=== PATIENT | male | born 1960 | race Hispanic/Latino ===

== ENCOUNTER 2018-01-25 17:30 | Emergency (ER) | payer OTHER, SELFPAY ==
[2018-01-25] MEDS ORDERED: MORPHINE 4 MG/ML SYR ONE (18:01)
[2018-01-25] MEDS ORDERED: ONDANSETRON 4 MG/2 ML VIAL ONE (18:02)
[2018-01-25] MEDS ORDERED: CEFAZOLIN/SWI 1gm 2 GM/20 ML SYR ONE (18:02)
[2018-01-25] MEDS ORDERED: NA CHLORIDE 0.9% 100 ML IV ONE (18:02)
[2018-01-25] MEDS ORDERED: TETANUS & DIPHTHERIA TOX,ADULT 0.5 ML VIAL ONE (18:02)
[2018-01-25 18:21] LABS: Absolute Lymphocytes (CBC) 2.7 K/uL (0.7-4.9); Absolute Monocytes 0.8 K/uL (0.1-1.3); Absolute Neutrophil 6.7 K/uL (1.8-8.0); Eosinophils % 2.6 % (0-4.4); Lymphocytes % 25.4 % (15.3-44.8); MCH 31.5 pg (27.0-35.0); MCV 93.9 fL (80-100); MPV 12.2 fL (7.6-11.3); Monocytes % 7.7 % (3.3-12.3); RBC Red Blood Cell Count 4.37 M/uL (4.33-5.43)
[2018-01-25 18:24] LABS: Protime INR 1.13
[2018-01-25 18:49] LABS: Potassium 4.1 mmol/L (3.5-5.1)
--- NOTE | 2018-01-25 18:52 | EDPHYS ---
Physician Documentation [facility] Name: Eric Nash Age: 57 yrs Sex: Male : 1960 Arrival Date: 01/25/2018 Time: 17:35 Bed 3 Private MD: ED Physician Sloo Garcia HPI: 01/25 17:57 This 57 yrs old Male presents to ER via EMS with complaints of Laceration To cp Arm. 17:57 The patient has a laceration occurred outdoors, and use of chainsaw. The laceration(s) cp is(are) located on the left forearm. Onset: The symptoms/episode began/occurred just prior to arrival. Associated signs and symptoms: Pertinent positives: heavy bleeding, Pertinent negatives: numbness distal to injury. Historical: - Allergies: 17:46 NKA; iw - PMHx: 17:46 Hypertension; iw - Immunization history:: Adult Immunizations unknown. - Immunization history: Last tetanus immunization: unknown. - Ebola Screening: : Patient negative for fever greater than or equal to 101.5 degrees Fahrenheit, and additional compatible Ebola Virus Disease symptoms Patient denies exposure to infectious person Patient denies travel to an Ebola-affected area in the 21 days before illness onset No symptoms or risks identified at this time. - Social history:: Smoking status: Patient/guardian denies using tobacco. ROS: 18:00 Constitutional: Negative for body aches, chills, fever, poor PO intake. cp 18:00 Eyes: Negative for injury, pain, redness, and discharge. cp 18:00 Cardiovascular: Negative for chest pain. 18:00 Respiratory: Negative for cough, shortness of breath, wheezing. 18:00 Abdomen/GI: Negative for abdominal pain, nausea, vomiting, and diarrhea. 18:00 Skin: Positive for laceration(s), of the laceration left forearm. 18:00 Neuro: Negative for dizziness. 18:00 All other systems are negative. Exam: 17:56 ECG was reviewed by the Attending Physician. cp 18:10 Constitutional: The patient appears in no acute distress, alert, awake, cp non-diaphoretic, non-toxic, well developed, well nourished. 18:10 Head/Face: Normocephalic, atraumatic. cp 18:10 Eyes: Pupils equal round and reactive to light, extra-ocular motions intact. Lids and lashes normal. Conjunctiva and sclera are non-icteric and not injected. Cornea within normal limits. Periorbital areas with no swelling, redness, or edema. 18:10 ENT: External ear(s): are unremarkable, Nose: is normal, Mouth: is normal, Posterior pharynx: is normal, airway is patent, no erythema, no exudate. 18:10 Chest/axilla: Inspection: normal, Palpation: is normal, no crepitus, no tenderness. 18:10 Cardiovascular: Rate: normal, Rhythm: regular, Pulses: Pulses are 2+ in right radial artery and left radial artery. 18:10 Respiratory: the patient does not display signs of respiratory distress, Respirations: normal, no use of accessory muscles, no retractions, no splinting, no tachypnea, Breath sounds: are clear throughout, no decreased breath sounds, no stridor, no wheezing. 18:10 Abdomen/GI: Inspection: abdomen appears normal, Palpation: abdomen is soft and non-tender, in all quadrants. 18:10 Musculoskeletal/extremity: Tendon exam: postive for patient unable to fully extend left third, fourth and fifth digits. 18:10 Musculoskeletal/extremity: Sensation intact. 18:10 Skin: injury, laceration(s), the wound is approximately 12 cm(s), of the proximal lateral left forearm, that can be described as no foreign body, irregular, with moderate bleeding. Vital Signs: 17:37 BP 168 / 87; Pulse 67; Resp 16; Temp 98.2; Pulse Ox 97% on R/A; Weight 65.77 kg; Height iw 5 ft. 5 in. (165.10 cm); Pain 8/10; 17:46 BP 179 / 91; Pulse 69; Resp 16; Temp 98.2; Pulse Ox 98% on R/A; Pain 8/10; iw 18:28 BP 165 / 95; Pulse 76; Resp 16; Pulse Ox 100% on R/A; Pain 7/10; iw 19:10 BP 164 / 79; Pulse 62; Resp 18; Temp 98; Pulse Ox 99% ; Pain 7/10; ea 20:45 BP 150 / 90; Pulse 66; Resp 18; Temp 98.2; Pulse Ox 98% on R/A; Pain 5/10; ea 17:37 Body Mass Index 24.13 (65.77 kg, 165.10 cm) Aureliano Coma Score: 17:37 Eye Response: spontaneous(4). Verbal Response: oriented(5). Motor Response: obeys iw commands(6). Total: 15. 19:10 Eye Response: spontaneous(4). Verbal Response: oriented(5). Motor Response: obeys ea commands(6). Total: 15. 20:40 Eye Response: spontaneous(4). Verbal Response: oriented(5). Motor Response: obeys ea commands(6). Total: 15. Trauma Score (Adult): 17:46 Eye Response: spontaneous(1); Verbal Response: oriented(1); Motor Response: obeys iw commands(2); Systolic BP: > 89 mm Hg(4); Respiratory Rate: 10 to 29 per min(4); [place] Score: 15; Trauma Score: 12 18:28 Eye Response: spontaneous(1); Verbal Response: oriented(1); Motor Response: obeys iw commands(2); Systolic BP: > 89 mm Hg(4); Respiratory Rate: 10 to 29 per min(4); [place] Score: 15; Trauma Score: 12 MDM: 17:38 Patient medically screened. [facility] 18:39 Data reviewed: vital signs, nurses notes, lab test result(s), EKG, radiologic studies. 01/25 17:39 Order name: Basic Metabolic Panel; Complete Time: 19:25 01/25 19:25 Interpretation: Normal except: CL 116; GLUC 156; GFR 86. 01/25 17:39 Order name: CBC with Diff; Complete Time: 18:36 01/25 17:37 Order name: XRAY Forearm LEFT; Complete Time: 19:25 01/25 19:25 Interpretation: Report reviewed. 01/25 17:39 Order name: Creatinine for Radiology; Complete Time: 19:25 01/25 17:39 Order name: PT-INR; Complete Time: 18:36 01/25 17:39 Order name: Ptt, Activated; Complete Time: 18:36 01/25 17:41 Order name: EKG; Complete Time: 17:41 01/25 17:39 Order name: Labs collected and sent; Complete Time: 17:40 01/25 18:39 Order name: NPO; Complete Time: 18:59 [facility] EC:56 Rate is 65 beats/min. Rhythm is regular. [place] interval is normal. QRS interval is normal. cp QT interval is prolonged at 450 msec. Interpreted by me. Reviewed by me. Administered Medications: 17:47 Drug: NS 0.9% 1000 ml Route: IV; Rate: 1 bolus; Site: right antecubital; iw 19:00 Follow up: Response: No adverse reaction; IV Status: Completed infusion ea 18:12 Drug: morphine 4 mg Route: IVP; Site: right antecubital; iw 19:00 Follow up: Response: No adverse reaction; Pain is decreased ea 18:12 Drug: Zofran 4 mg Route: IVP; Site: right antecubital; iw 19:32 Follow up: Response: No adverse reaction; Marked relief of symptoms ea 18:13 Drug: Tetanus-Diphtheria Toxoid Ped 0.5 ml {Rn Recruitment: [employer]. Exp: iw 02/03/2020. Lot #: [id number]. } Route: IM; Site: right deltoid; 19:11 Follow up: Response: No adverse reaction ea 18:13 Drug: Ancef 2 grams Route: IVPB; Infused Over: 30 mins; Site: right antecubital; iw 19:31 Follow up: Response: No adverse reaction; IV Status: Completed infusion ea 19:39 Drug: fentaNYL (PF) 25 mcg Route: IVP; Site: right antecubital; ea 20:00 Follow up: Response: No adverse reaction; Pain is decreased ea 20:47 Drug: fentaNYL (PF) 50 mcg Route: IVP; Site: right antecubital; ea 20:49 Follow up: Response: Other; medication administered before transfer. ea Disposition: 18:43 Co-signature as Attending Physician, Solo Garcia MD. [facility] Disposition: 01/25/18 18:52 Transfer ordered to [facility]. Diagnosis is Laceration without foreign body of left forearm - with damage to muscle, tendon and fascia. - Reason for transfer: Higher level of care. - Accepting physician is Channing Alvarenga. - Condition is Stable. - Problem is new. - Symptoms have improved. Signatures: Dispatcher [employer] Solo Ashby MD MD cha Williams, Irene, RN RN iw Page, Corey, PA PA cp Antunez, Elena, RN RN ea Corrections: (The following items were deleted from the chart) 21:04 18:52 01/25/2018 18:52 Transfer ordered to [facility]. ea Diagnosis is Laceration without foreign body of left forearm - with damage to muscle, tendon and fascia. Reason for transfer: Higher level of care. Accepting physician is Channing Alvarenga. Condition is Stable. Problem is new. Symptoms have improved. cp
--- NOTE | 2018-01-25 18:52 | ER ---
Nurse's Notes [facility] Name: Eric Nash Age: 57 yrs Sex: Male : 1960 Arrival Date: 01/25/2018 Time: 17:35 Bed 3 Private MD: Diagnosis: Laceration without foreign body of left forearm-with damage to muscle, tendon and fascia Presentation: 01/25 17:37 Presenting complaint: EMS states: pt was using a chainsaw when the sleeve of his shirt iw got caught in the saw, causing the saw to cut his left forearm. Transition of care: patient was not received from another setting of care. Onset of symptoms was January 25, 2018. Risk Assessment: Do you want to hurt yourself or someone else? Patient reports no desire to harm self or others. Initial Sepsis Screen: Does the patient meet any 2 criteria? No. Patient's initial sepsis screen is negative. Does the patient have a suspected source of infection? No. Patient's initial sepsis screen is negative. Care prior to arrival: None. 17:37 Method Of Arrival: EMS: [facility] iw 17:37 Acuity: ALANA 2 iw Historical: - Allergies: 17:46 NKA; iw - PMHx: 17:46 Hypertension; iw - Immunization history:: Adult Immunizations unknown. - Immunization history: Last tetanus immunization: unknown. - Ebola Screening: : Patient negative for fever greater than or equal to 101.5 degrees Fahrenheit, and additional compatible Ebola Virus Disease symptoms Patient denies exposure to infectious person Patient denies travel to an Ebola-affected area in the 21 days before illness onset No symptoms or risks identified at this time. - Social history:: Smoking status: Patient/guardian denies using tobacco. Screenin:46 Abuse screen: Denies threats or abuse. Denies injuries from another. Tuberculosis iw screening: No symptoms or risk factors identified. 19:11 Nutritional screening: No deficits noted. Fall Risk IV access (20 points). ea Primary Survey: 17:40 A: Airway: patent. iw 17:40 Breathing/Chest: Respiratory pattern: regular, Respiratory effort: spontaneous, iw unlabored, Breath sounds: clear, bilaterally. Chest inspection: symmetrical rise and fall of the chest. Circulation: Cardiac rhythm: sinus rhythm Heart tones present. Pulses: palpable right radial artery and left radial artery. Skin color: pink, Skin temperature: warm, dry. Disability Alert. 19:11 Reassessment Airway Airway Patent Breathing/Chest Respiratory pattern Regular ea Respiratory effort Spontaneous Unlabored Breath sounds Clear Circulation Pulses Palpable Disability Alert. Secondary Survey: 17:45 HEENT: No deficits noted. Head No injury/deformity Face No injury/deformity Eyes: No iw injury or deformity noted. to bilateral eyes. Musculoskeletal: Capillary refill < 3 seconds, in bilateral fingers. Range of motion: limited in left wrist, DIP of left ring finger, PIP of left ring finger and MCP of left ring finger. Musculoskeletal: Range of motion: limited in DIP of left middle finger, PIP of left middle finger and MCP of left middle finger. Injury Description: Laceration sustained to dorsal aspect of left forearm is full thickness, jagged, 7.6 to 20 cm long. Assessment: 17:43 General: Appears in no apparent distress. Behavior is calm, cooperative. Pain: iw Complains of pain in dorsal aspect of left forearm Pain currently is 8 out of 10 on a pain scale. Neuro: Level of Consciousness is awake, alert, obeys commands, Oriented to person, place, time, situation, Moves all extremities. Cardiovascular: Pulses are palpable in right radial artery and left radial artery. Respiratory: Respiratory effort is even, unlabored, Respiratory pattern is regular, symmetrical. Musculoskeletal: Range of motion: intact in all extremities. Injury Description: Laceration sustained to dorsal aspect of left forearm is full thickness, jagged, 7.6 to 20 cm long, bleeding moderately, was sustained 1-2 hours ago. moderate bleeding noted at this time. 18:22 Reassessment: Patient appears in no apparent distress at this time. Patient and/or iw family updated on plan of care and expected duration. Pain level reassessed. Patient is alert, oriented x 3, equal unlabored respirations, skin warm/dry/pink. pressure dressing in place, bleeding controlled, pt medicated for pain, VSS, family at bedside, family updated on POC, pt will be transferred to higher level facility for wash out and surgical repair f wound. 19:08 Reassessment: Report called Prema ROBERTS at [facility]. ea 19:11 General: Appears in no apparent distress. Behavior is calm, cooperative. Pain: ea Complains of pain in dorsal aspect of left forearm Pain currently is 7 out of 10 on a pain scale. Quality of pain is described as aching. Neuro: Level of Consciousness is awake, alert, obeys commands, Oriented to person, place, time, situation. Cardiovascular: Patient's skin is warm and dry. Pulses are palpable in right radial artery and left radial artery. Respiratory: Airway is patent Respiratory effort is even, unlabored, Respiratory pattern is regular, symmetrical. Derm: Skin is dry, Skin temperature is warm reported laceration to left forearm, dressing noted, dry and intact. Musculoskeletal: Circulation, motion, and sensation intact. 20:45 Reassessment: Patient and/or family updated on plan of care and expected duration. Pain ea level reassessed. Patient is alert, oriented x 3, equal unlabored respirations, skin warm/dry/pink. Reassessment: [facility] at facility for transfer. Pt taken via stretcher per EMS, accompanied by family. Vital Signs: 17:37 BP 168 / 87; Pulse 67; Resp 16; Temp 98.2; Pulse Ox 97% on R/A; Weight 65.77 kg; Height iw 5 ft. 5 in. (165.10 cm); Pain 8/10; 17:46 BP 179 / 91; Pulse 69; Resp 16; Temp 98.2; Pulse Ox 98% on R/A; Pain 8/10; iw 18:28 BP 165 / 95; Pulse 76; Resp 16; Pulse Ox 100% on R/A; Pain 7/10; iw 19:10 BP 164 / 79; Pulse 62; Resp 18; Temp 98; Pulse Ox 99% ; Pain 7/10; ea 20:45 BP 150 / 90; Pulse 66; Resp 18; Temp 98.2; Pulse Ox 98% on R/A; Pain 5/10; ea 17:37 Body Mass Index 24.13 (65.77 kg, 165.10 cm) iw Aureliano Coma Score: 17:37 Eye Response: spontaneous(4). Verbal Response: oriented(5). Motor Response: obeys iw commands(6). Total: 15. 19:10 Eye Response: spontaneous(4). Verbal Response: oriented(5). Motor Response: obeys ea commands(6). Total: 15. 20:40 Eye Response: spontaneous(4). Verbal Response: oriented(5). Motor Response: obeys ea commands(6). Total: 15. Trauma Score (Adult): 17:46 Eye Response: spontaneous(1); Verbal Response: oriented(1); Motor Response: obeys iw commands(2); Systolic BP: > 89 mm Hg(4); Respiratory Rate: 10 to 29 per min(4); [place] Score: 15; Trauma Score: 12 18:28 Eye Response: spontaneous(1); Verbal Response: oriented(1); Motor Response: obeys iw commands(2); Systolic BP: > 89 mm Hg(4); Respiratory Rate: 10 to 29 per min(4); [place] Score: 15; Trauma Score: 12 ED Course: 17:35 Patient arrived in ED. iw 17:38 Solo Laird PA is PHCP. cp 17:38 Solo Garcia MD is Attending Physician. cp 17:39 Triage completed. iw 17:39 Arm band placed on. iw 17:46 Inserted saline lock: 20 gauge in right antecubital area, using aseptic technique. iw Patient maintains SpO2 saturation greater than 95% on room air. 17:48 Agustina Alvarenga, RN is Primary Nurse. iw 17:59 EKG done, by hvac tech. reviewed by Solo SILVER. sm3 18:08 X-ray completed. Portable x-ray completed in exam room. Patient tolerated procedure ml well. 18:09 XRAY Forearm LEFT In Process Unspecified. EDMS 19:11 Patient has correct armband on for positive identification. Bed in low position. Call ea light in reach. Side rails up X2. 19:11 Thermoregulation: warm blanket given to patient. ea 20:55 No provider procedures requiring assistance completed. Patient transferred, IV remains ea in place. 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 Exp: iw 02/03/2020. Lot #: [id number]. } Route: IM; Site: right deltoid; 19:11 Follow up: Response: No adverse reaction ea 18:13 Drug: Ancef 2 grams Route: IVPB; Infused Over: 30 mins; Site: right antecubital; iw 19:31 Follow up: Response: No adverse reaction; IV Status: Completed infusion ea 19:39 Drug: fentaNYL (PF) 25 mcg Route: IVP; Site: right antecubital; ea 20:00 Follow up: Response: No adverse reaction; Pain is decreased ea 20:47 Drug: fentaNYL (PF) 50 mcg Route: IVP; Site: right antecubital; ea 20:49 Follow up: Response: Other; medication administered before transfer. ea Intake: 19:11 PO: 0ml; Total: 0ml. ea Outcome: 18:52 ER care complete, transfer ordered by MD. 20:57 Transferred by ground EMS to [facility], Transfer form completed. ea 20:57 Condition: stable 20:57 Patient's length of stay in the Emergency Department was greater than 2 hours. Transferred to [facility] Patient's length of stay extended due to 21:04 Patient left the ED. ea Signatures: Dispatcher [employer] EDAgustina Sanchez RN RN iw Lopez, Melissa ml Page, Corey, PA PA Yolanda Dodd RN RN ea Montes, Shakira sm3 Corrections: (The following items were deleted from the chart) 17:45 17:35 A: Airway: patent, iw 18:24 17:37 BP 168 / 87; Pulse 67bpm; Resp 16bpm; Pulse Ox 97% RA; Temp 98.2F; Pain 8/10; [facility]
--- NOTE | 2018-01-25 19:21 | RAD REPORT ---
EXAM DESCRIPTION: RAD - Forearm Left - 01/25/2018 6:14 pm CLINICAL HISTORY: Left forearm pain status post injury FINDINGS: No fracture is seen. A laceration involves the lateral soft tissues
[2018-01-25] MEDS ORDERED: FENTANYL CITR 100 MCG/2 ML ONE (19:42)
[2018-01-25 21:16] VITALS: BP 150/90; TEMP 98.2; O2SAT 98
--- NOTE | 2018-01-26 12:12 | EKG ---
Test Date: 2018-01-25 Test Time: 17:55:07 Hospital Admissions Clerk: ROMERO MEASUREMENT RESULTS: Intervals: Rate: 65 WA: 168 QRSD: 94 QT: 450 QTc: 468 [place]: P: 46 WA: 168 QRS: 48 T: 55 INTERPRETIVE STATEMENTS: Normal sinus rhythm Prolonged QT Abnormal ECG Compared to ECG 02/21/2014 16:09:38 Prolonged QT interval now present Electronically Signed On 01-26-18 12:08:53 CDT by Eber Callaway
== END 2018-01-25 21:04 | disposition short-term general hospital (02) ==
LOC: ER 17:30
DX: S56.922A Laceration of unspecified muscles, fascia and tendons at forearm level, left arm, initial encounter (principal); W29.3XXA Contact with powered garden and outdoor hand tools and machinery, initial encounter; Y93.9 Activity, unspecified; Y92.9 Unspecified place or not applicable; Z23 Encounter for immunization; I10 Essential (primary) hypertension
CPT/HCPCS: 36415; 80048; 85025; 85610; 85730; 90714; 93005; 96365; 96375; 99285; J0690; J2405; J3010

== ENCOUNTER 2019-07-28 21:13 | Emergency (ER) | payer BC, SELFPAY ==
--- OUTSIDE RECORDS SUMMARY | 2019-07-28 21:16 | XMS REPORT | Summary of Care ---
:1960 Author Name ERNIE ALVARENGA M.D. Address Unavailable Unavailable , Care Team Providers Name Role Phone ERNIE ALVARENGA M.D. Unavailable Unavailable Ernie Alvarenga MD Unavailable Unavailable Functional Status Name Dates Details Functional status health issues are not documented Status: Name Dates Details Cognitive status health issues are not documented Status: Problems Name Dates Details Laceration of extensor muscle, fascia and tendon of left index finger at forearm level, subsequent encounter (S56.422D) Status: Active Laceration of extensor muscle, fascia and tendon of left middle finger at forearm level, subsequent encounter (S56.424D) Status: Active Laceration of extensor muscle, fascia and tendon of left ring finger at forearm level, subsequent encounter (S56.426D) Status: Active Laceration of extensor muscle, fascia and tendon of left little finger at forearm level, subsequent encounter (S56.428D) Status: Active Extensor tendon laceration of elbow with open wound, left, subsequent encounter (V58.89, S56.522D) Status: Active Medications Name Dates Details TraMADol HCl - 50 MG Oral Tablet TAKE 1 TO 2 TABLETS EVERY 4 TO 6 HOURS NEEDED FOR PAIN. Quantity: 50 Refills: 0 ERNIE ALVARENGA M.D. Start : 10-Feb-2018 Active Allergies and Adverse Reactions Name Dates Details No Known Drug Allergies (Allergy) Status: Active Procedures Procedure Dates Details Procedures not documented Immunization Name Dates Details Immunizations not documented Social History Name Dates Details Unknown if ever smoked Vital Signs Date Test Result Details No Known Vitals to report Results Date Description Value Details Results not documented Plan of Care Name Dates Details Planned Observations Planned Goals not documented Interventions Provided Medication ChangesTraMADol HCl - 50 MG Oral Tablet - Start Instructions Name Dates Details Instructions not documented Encounters Appointment; ERNIE ALVARENGA M.D. On: 04-Feb-2018 12:00 Encounter Diagnosis: Problem not documented Appointment; ERNIE ALVARENGA M.D. On: 10-Feb-2018 14:00 Encounter Diagnosis: Problem not documented
--- OUTSIDE RECORDS SUMMARY | 2019-07-28 21:16 | XMS REPORT ---
:1960 [facility] Address [address] [place] [address] [place] [id number] Care Team Providers Name Role Phone Unavailable Unavailable Unavailable Problems This patient has no known problems. Allergies, Adverse Reactions, Alerts This patient has no known allergies or adverse reactions. Medications This patient has no known medications.
[2019-07-28] MEDS ORDERED: LIDOCAINE 1% W/EPI 1:100,000 MDV 50 ML VIAL ONE (23:39)
--- NOTE | 2019-07-29 01:24 | ER ---
Nurse's Notes [facility] Name: Eric Nash Age: 58 yrs Sex: Male : 1960 Arrival Date: 07/28/2019 Time: 21:16 Bed 20 Private MD: Bjorn Parham Diagnosis: Superficial injury of head;Laceration with foreign body of scalp Presentation: 07/27 21:20 Chief complaint: Patient states: He was trying to get up, getting out of his truck bed aj1 and his leg gave out from under him and he hit his head on the ground. He isn't sure if he passed out or not. He knows he was on the ground for several minutes. Denies taking any blood thinning medications. Coronavirus screen: The patient has NOT traveled to a country currently being monitored by the CDC within the last 14 days. Ebola Screen: Patient denies travel to an Ebola-affected area in the 21 days before illness onset. Complicating Factors: There are no complicating factors for this patient. Initial Sepsis Screen: Does the patient meet any 2 criteria? No. Patient's initial sepsis screen is negative. Does the patient have a suspected source of infection? No. Patient's initial sepsis screen is negative. Risk Assessment: Do you want to hurt yourself or someone else? Patient reports no desire to harm self or others. 21:20 Method Of Arrival: Wheelchair aj1 21:20 Acuity: ALANA 2 aj1 23:38 Onset of symptoms was July 2019. mg2 Triage Assessment: 21:25 General: Appears in no apparent distress. comfortable, Behavior is calm, cooperative, aj1 appropriate for age. Pain: Complains of pain in left frontal area and left temporal area. Neuro: Level of Consciousness is awake, alert, obeys commands. Cardiovascular: Patient's skin is warm and dry. Respiratory: Airway is patent Respiratory effort is even, unlabored, Respiratory pattern is regular, symmetrical. Historical: - Allergies: 21:25 NKA; aj1 - PMHx: 21:25 Hypertension; Diabetes - NIDDM; Arthritis; aj1 - Immunization history:: Flu vaccine status is unknown. - Social history:: Smoking status: Patient reports the use of cigarette tobacco products. Screenin:37 Abuse screen: Denies threats or abuse. Denies injuries from another. Nutritional mg2 screening: No deficits noted. Tuberculosis screening: No symptoms or risk factors identified. Fall Risk Fall in past 12 months (25 points). Assessment: 23:36 General: Appears in no apparent distress. comfortable, Behavior is calm, cooperative. mg2 Pain: Complains of pain in left side of forehead. Neuro: Level of Consciousness is awake, alert, obeys commands, Oriented to person, place, time, situation. Cardiovascular: Capillary refill is > 3 seconds Patient's skin is warm and dry. Respiratory: Airway is patent Respiratory effort is even, unlabored, Respiratory pattern is regular, symmetrical. GI: No signs and/or symptoms were reported involving the gastrointestinal system. : No signs and/or symptoms were reported regarding the genitourinary system. EENT: No signs and/or symptoms were reported regarding the EENT system. Derm: Skin open wound in the forehead. Musculoskeletal: Circulation, motion, and sensation intact. Capillary refill < 3 seconds. Injury Description: Laceration sustained to left side of forehead is clean, 2.6 to 7.5 cm long, not bleeding, is bleeding no active bleeding noted. Vital Signs: 21:20 BP 140 / 87; Pulse 77; Resp 18; Temp 98.2; Pulse Ox 97% on R/A; Weight 74.84 kg (R); aj1 Height 5 ft. 7 in. (170.18 cm); Pain 8/10; 07/28 00:30 BP 124 / 87; Pulse 70; Resp 18; Pulse Ox 100% on R/A; mg2 01:41 BP 122 / 78; Pulse 80; Resp 18; Temp 98; Pulse Ox 100% on R/A; mg2 07/27 21:20 Body Mass Index 25.84 (74.84 kg, 170.18 cm) aj1 [place] Coma Score: 07/27 22:16 Eye Response: spontaneous(4). Verbal Response: oriented(5). Motor Response: obeys kb commands(6). Total: 15. ED Course: 21:16 Patient arrived in ED. es 21:17 Bjorn Parham MD is Private Physician. es 21:25 Triage completed. aj1 21:25 Arm band placed on. aj1 21:39 [facility]C [facility] kb 21:39 Bhupinder Ochoa MD is Attending Physician. kb 22:09 CT Head C Spine In Process Unspecified. EDMS 22:43 Hipolito Bowman, RN is Primary Nurse. mg2 23:38 Patient has correct armband on for positive identification. mg2 23:38 Patient did not have IV access during this emergency room visit. mg2 07/28 01:40 Assist provider with laceration repair on left side of forehead that was between 2.6 to mg2 7.5 cm using sutures. Set up tray. Performed by Sandhya CASTRO Dressed with 4X4s, Patient tolerated well. 17 sutures. Administered Medications: 00:10 Drug: Lidocaine-Epinephrine -1%: (1:100,000) 1 vials {Note: administered by the mg2 provider.} Volume: 20 ml; Route: Infiltration; 01:24 Follow up: Response: No adverse reaction mg2 Outcome: 01:23 Discharge ordered by MD. kb 01:42 Discharged to home via wheelchair, with family. mg2 01:42 Condition: stable 01:42 Discharge instructions given to patient, family, Instructed on discharge instructions, follow up and referral plans. wound care, Demonstrated understanding of instructions, follow-up care, wound care. 01:42 Patient left the ED. mg2 Signatures: Dispatcher [employer] EDNM Sandhya Ricks FNP-C FNP-Carri Diaz RN RN [email or web address] Manasa Louis Michele, RN RN mg2
--- NOTE | 2019-07-29 01:24 | EDPHYS ---
Physician Documentation [facility] Name: Eric Nash Age: 58 yrs Sex: Male : 1960 Arrival Date: 07/28/2019 Time: 21:16 Bed 20 Private MD: Bjorn Parham ED Physician Bhupinder Ochoa HPI: 07/27 22:15 This 58 yrs old Male presents to ER via Wheelchair with complaints of kb Laceration To Head. 22:15 The patient has not experienced similar symptoms in the past. The patient has not kb recently seen a physician. Daughter reports pt was sitting on the tailgate of his truck and when he went to get down his leg gave out and he fell hitting his face on the concrete. Pt able to recall entire event, but is not sure if he passed out or not. States he didn't want to come to the ER when it first happened around 1999, but his head started throbbing so he decided to come in. . 22:16 The patient or guardian reports injury, a laceration, pain. The complaints affect the kb left side of forehead. Context of injury: The problem was sustained at home, outdoors, resulted from a fall, from truck bed. Onset: The symptoms/episode began/occurred at 20:00. Associated signs and symptoms: Loss of consciousness: This patient did not experience any loss of consciousness. Pertinent positives: headache, Pertinent negatives: the patient has not experienced a loss of conciousness, patient denies any alcohol consumption, biting tongue, dazed, double vision, incontinence, nausea, neck pain, seizure, shortness of breath, tinnitus, vomiting, weakness in extremities, generalized weakness. Severity of symptoms: At their worst the symptoms were moderate, in the emergency department the symptoms are unchanged. Historical: - Allergies: 21:25 NKA; aj1 - PMHx: 21:25 Hypertension; Diabetes - NIDDM; Arthritis; aj1 - Immunization history:: Flu vaccine status is unknown. - Social history:: Smoking status: Patient reports the use of cigarette tobacco products. ROS: 22:14 Constitutional: Negative for fever, chills, and weight loss, Eyes: Negative for injury, kb pain, redness, and discharge, Cardiovascular: Negative for chest pain, palpitations, and edema, Respiratory: Negative for shortness of breath, cough, wheezing, and pleuritic chest pain, Abdomen/GI: Negative for abdominal pain, nausea, vomiting, diarrhea, and constipation, Back: Negative for injury and pain, MS/Extremity: Negative for injury and deformity. 22:14 Skin: Positive for laceration(s), of the left side of forehead. 22:14 Neuro: Positive for headache, Negative for altered mental status, dizziness, gait disturbance, hearing loss, loss of consciousness, numbness, seizure activity, speech changes, syncope, near syncope, tingling, tinnitus, tremor, visual changes, weakness. Exam: 07/28 01:20 Constitutional: This is a well developed, well nourished patient who is awake, alert, kb and in no acute distress. Eyes: Pupils equal round and reactive to light, extra-ocular motions intact. Lids and lashes normal. Conjunctiva and sclera are non-icteric and not injected. Cornea within normal limits. Periorbital areas with no swelling, redness, or edema. ENT: Nares patent. No nasal discharge, no septal abnormalities noted. Tympanic membranes are normal and external auditory canals are clear. Oropharynx with no redness, swelling, or masses, exudates, or evidence of obstruction, uvula midline. Mucous membranes moist. Neck: Trachea midline, no thyromegaly or masses palpated, and no cervical lymphadenopathy. Supple, full range of motion without nuchal rigidity, or vertebral point tenderness. No Meningismus. Chest/axilla: Normal chest wall appearance and motion. Nontender with no deformity. No lesions are appreciated. Cardiovascular: Regular rate and rhythm with a normal S1 and S2. No gallops, murmurs, or rubs. Normal PMI, no JVD. No pulse deficits. Respiratory: Lungs have equal breath sounds bilaterally, clear to auscultation and percussion. No rales, rhonchi or wheezes noted. No increased work of breathing, no retractions or nasal flaring. Abdomen/GI: Soft, non-tender, with normal bowel sounds. No distension or tympany. No guarding or rebound. No evidence of tenderness throughout. MS/ Extremity: Pulses equal, no cyanosis. Neurovascular intact. Full, normal range of motion. Neuro: Awake and alert, GCS 15, oriented to person, place, time, and situation. Cranial nerves II-XII grossly intact. Motor strength 5/5 in all extremities. Sensory grossly intact. Cerebellar exam normal. Normal gait. Head/face: Noted is no obvious of injury or deformity except a laceration(s), that is deep, 6 cm(s), of the left side of forehead. Vital Signs: 07/27 21:20 BP 140 / 87; Pulse 77; Resp 18; Temp 98.2; Pulse Ox 97% on R/A; Weight 74.84 kg (R); aj1 Height 5 ft. 7 in. (170.18 cm); Pain 12/24; 07/28 00:30 BP 124 / 87; Pulse 70; Resp 18; Pulse Ox 100% on R/A; mg2 01:41 BP 122 / 78; Pulse 80; Resp 18; Temp 98; Pulse Ox 100% on R/A; mg2 07/27 21:20 Body Mass Index 25.84 (74.84 kg, 170.18 cm) aj1 [place] Coma Score: 07/27 22:16 Eye Response: spontaneous(4). Verbal Response: oriented(5). Motor Response: obeys kb commands(6). Total: 15. Laceration: 07/28 01:20 Wound Repair of 6cm ( 2.4in ) subcutaneous laceration to left side of forehead. kb Irregularly shaped.. cresent shaped. Distal neuro/vascular/tendon intact. Anesthesia: Wound infiltrated with 4 mls of 1% lidocaine w/ Epi. Wound prep: Extensive cleansing with hibiclenz by nurse, Wound irrigation with saline by nurse by me, Particulate matter removal by nurse by me, Wound explored moderately, Copious irrigation. Skin closed with 17 6-0 Prolene using simple sutures and sterile technique. Patient tolerated well. MDM: 07/27 21:42 Patient medically screened. kb 22:14 Data reviewed: vital signs, nurses notes. Data interpreted: Pulse oximetry: on room air kb is 97 %. Interpretation: normal. 07/28 01:22 Counseling: I had a detailed discussion with the patient and/or guardian regarding: the kb historical points, exam findings, and any diagnostic results supporting the discharge/admit diagnosis, radiology results, the need for outpatient follow up, a family practitioner, to return to the emergency department if symptoms worsen or persist or if there are any questions or concerns that arise at home. 07/27 21:42 Order name: CT Head C Spine kb 07/27 22:55 Order name: Prolene, Sutures; Complete Time: 23:40 kb 07/27 22:55 Order name: Dressing - Wound; Complete Time: 01:24 kb 07/27 22:55 Order name: Gloves, Sterile; Complete Time: 23:40 kb 07/27 22:55 Order name: Setup Suture Tray; Complete Time: 23:40 kb Administered Medications: 00:10 Drug: Lidocaine-Epinephrine -1%: (1:100,000) 1 vials {Note: administered by the mg2 provider.} Volume: 20 ml; Route: Infiltration; 01:24 Follow up: Response: No adverse reaction mg2 Disposition: 03:30 Co-signature as Attending Physician, Bhupinder Ochoa MD I agree with the assessment and tw4 plan of care. Disposition: 07/29/19 01:23 Discharged to Home. Impression: Superficial injury of head, Laceration with foreign body of scalp. - Condition is Stable. - Discharge Instructions: Laceration Care, Adult, [id number], Head Injury, Adult, [id number]. - Medication Reconciliation Form, Thank You Letter, Antibiotic Education, Prescription Opioid Use form. - Follow up: Emergency Department; When: As needed; Reason: Worsening of condition. Follow up: Private Physician; When: 2 - 3 days; Reason: Recheck today's complaints, Continuance of care, Re-evaluation by your physician. Signatures: Dispatcher [employer] EDMS Sandhya Ricks, GUERO-C CLINICAL CYTOPATHOLOGIST-Carri Diaz RN RN aj1 Bhupinder Ochoa MD MD tw4 Hipolito Bowman RN RN mg2 Corrections: (The following items were deleted from the chart) 01:42 01:23 07/29/2019 01:23 Discharged to Home. Impression: Superficial injury of head; mg2 Laceration with foreign body of scalp. Condition is Stable. Forms are Medication Reconciliation Form, Thank You Letter, Antibiotic Education, Prescription Opioid Use. Follow up: Emergency Department; When: As needed; Reason: Worsening of condition. Follow up: Private Physician; When: 2 - 3 days; Reason: Recheck today's complaints, Continuance of care, Re-evaluation by your physician. kb
[2019-07-29 02:01] VITALS: O2SAT 100
[2019-07-29 02:02] VITALS: BP 122/78; TEMP 98
--- NOTE | 2019-07-31 10:19 | RAD REPORT ---
EXAM DESCRIPTION: CT - [id number] - 07/29/2019 5:37 am CLINICAL HISTORY: Trauma TECHNIQUE: Contiguous axial CT images obtained through the brain without IV contrast. Coronal and sa gittal reformatted images were provided. This exam was performed according to our departmental dose-optimization program, which includes autom ated exposure control, adjustment of the mA and/or kV according to patient size and/or use of iterati ve reconstruction technique. COMPARISON: None available for comparison FINDINGS: Brain: No significant white matter changes. No focal mass effect. Marroquin-white matter differ entiation is within normal limits. No hemorrhage. Ventricles: No ventriculomegaly or midline shift. Extra-axial spaces: No extra-axial collection or hemorrhage. Paranasal sinuses and mastoid air cells: Well-aerated Vessels: There is atherosclerotic disease of the internal carotid arteries bilaterally. Bones: Unremarkable Soft tissues: Large left frontal soft tissue laceration. There are a few small hyperdensities subjace nt to the laceration, the largest measuring 3 mm. IMPRESSION: 1. No acute intracranial or extra-axial abnormality. 2. Large left frontal soft tissue laceration. There are a few subjacent foreign bodies. EXAM DESCRIPTION: C Spine Wo Con CLINICAL HISTORY: Trauma TECHNIQUE: Contiguous axial CT images obtained through the cervical spine without IV contrast. Coron al and sagittal reformatted images also provided. This exam was performed according to our departmental dose-optimization program, which includes autom ated exposure control, adjustment of the mA and/or kV according to patient size and/or use of iterati ve reconstruction technique. COMPARISON: None available for comparison FINDINGS: Vertebra: No acute fracture or subluxation. Disc spaces: Moderate multilevel degenerative changes. The central thecal sac is mildly narrowed at t he mid to lower cervical level. Prevertebral soft tissues: Unremarkable Lung apices: Right apical calcified granuloma. IMPRESSION: No acute injury. Electronically signed by: Tom Gustafson MD 07/28/2019 10:25 PM CDT Due to temporary technical issues with the PACS/Fluency reporting system, reports are being signed by the in house radiologist as a courtesy to ensure prompt reporting. The interpreting radiologist is f ully responsible for the content of the report.
== END 2019-07-29 01:42 | disposition home or self-care (01) ==
LOC: ER 21:13
PROC: 0JQ10ZZ Repair Face Subcutaneous Tissue and Fascia, Open Approach (ICD-10-PCS; principal; 2019-07-29)
DX: S01.01XA Laceration without foreign body of scalp, initial encounter (principal); W18.30XA Fall on same level, unspecified, initial encounter; Y93.9 Activity, unspecified; Y92.9 Unspecified place or not applicable
CPT/HCPCS: 70450; 72125; 99283

== ENCOUNTER 2020-04-25 00:34 | Emergency (ER) | payer BC ==
--- OUTSIDE RECORDS SUMMARY | 2020-04-25 00:38 | XMS REPORT | Continuity of Care Document ---
:1960 Author Organization [email or web address] Care Team Providers Name Role Phone [email or web address] Unavailable Un available Problems Problem Status Onset Classification Date Comments Sourc e Date Reported [place]/15/[place] other extensor 8 Medic al muscle, fascia Cente r and tendon at forearm level, left arm, initial encounter Pain in left hand 09/28/2018 M [facility] 8 LEFT YOKE SPLINT Active [facility] (DOS 01/26/18) 8 LEFT FOREARM LAC Active [place] [address] [facility] FOREARM LAC Active [address] Stiffness of left 09/28/2018 [facility] hand, not elsewhere classified Muscle wasting 09/28/2018 S [facility] and atrophy, not elsewhere classified, left hand Laceration of 09/28/2018 SM [facility] extensor muscle, fascia and tendon of left middle finger at wrist and hand level, subsequent encounter Laceration of 09/28/2018 [facility] extensor muscle, fascia and tendon of left ring finger at wrist and hand level, subsequent encounter Exposure to other 09/28/2018 [facility] specified factors, subsequent encounter Laceration 08/15/2018 [facility] without foreign Medi kary body of left Center forearm, initial encounter Elevated 08/15/2018 [facility] blood-pressure Medic al reading, without Jacobo ter diagnosis of hypertension Hyperglycemia, 08/15/2018 [place] [facility] Nicotine 08/15/2018 [facility] dependence, Medical cigarettes, Center uncomplicated Contact with 08/15/2018 [facility] as powered garden Medic al and outdoor hand Jacobo ter tools and machinery, initial encounter LACERATION Active [facility] WITHOUT FOREIGN Medi kary BODY OF [facility] Center Medications Medication Details Route Status Patient Ordering Order Source Instructions Provider Date tramadol 50 mg = 1 tab, No Longer Khurram as hydrochloride 50 PO, Q6H, PRN Active 2017 Me dical MG Oral Tablet Pain, X 5 day, # Center 24 tab, 0 Refill(s) cefpodoxime 100 mg 100 mg = 1 tab, No Longer [place] oral tablet PO, Q12H, X 7 Active 2018 Medica l day, # 14 tab, 0 Center Refill(s), Pharmacy: [facility] [id number] Sulfamethoxazole 1 tab, PO, BID, No Longer 01/26 [place] 800 MG / X 7 day, # 14 Active 2018 Medical Trimethoprim 160 tab, 0 Center MG Oral Tablet Refill(s), [Bactrim] [id number] Oxycodone 5 mg, Route: PO, Inactive [place] Drug form: TAB, 2018 Medical Q4H, Dosing Center Weight 75, kg, PRN Pain Score 4-6, Start date: 01/26/18 3:08:00 CDT, Duration: 30 day, Stop date: 02/25/18 3:07:00 CDT Labetalol 10 mg, Route: Inactive Khurrama s IVP, Q5Min, 2017 Medical Dosing Weight Center 75, kg, PRN Elevated BP, Start date: 01/26/18 3:08:00 CDT, Duration: 5 doses or times, Stop date: Limited # of times Promethazine 6.25 mg, Route: Inactive [place] IVPB, ONCE, 2017 Medical Dosing Weight Center 75, kg, PRN Nausea & Vomiting, Start date: 01/26/18 3:08:00 CDT Ondansetron 4 mg, Route: Inactive Khurram as IVP, ONCE, 2017 Medical Dosing Weight Center 75, kg, PRN Nausea & Vomiting, Start date: 01/26/18 3:08:00 CDT Hydromorphone 0.5 mg, Route: Inactive Danielle IVP, Q5Min, 2018 Medical Dosing Weight Center 75, kg, PRN Pain Score 7-10, Start date: 01/26/18 3:08:00 CDT, Duration: 4 doses or times, Stop date: Limited # of times Flumazenil 0.2 mg, Route: [place]active [place] IVP, PRN, Dosing 2018 Medical Weight 75, kg, Center PRN Benzodiazepine Reversal, Initial dose, Start date: 01/26/18 3:08:00 CDT, Duration: 30 day, Stop date: 02/25/18 3:07:00 CDT Naloxone 0.4 mg, Route: Inactive Sherie s IVP, Q2MIN, 2018 Medical Dosing Weight Center 75, kg, PRN Narcotic Reversal, Start date: 01/26/18 3:08:00 CDT, Duration: 8 doses or times, Stop date: Limited # of times Ancef Notes: (Same As: Inactive Khurram as Ancef, Kefzol) 2018 Medical MEDICATION Center WASTE Product Size: 1000 mg Product Wasted: ___ mg Lisinopril Notes: (Same as: Inactive Danielle Prinivil, 2018 Medical Zestril) Center tramadol Notes: Not to Inactive Danielle hydrochloride 50 exceed 2018 Medical MG Oral Tablet 400mg/day. (Same Center As: [facility]) Acetaminophen Notes: Do not Inactive Danielle exceed 4 gm/day. 2018 Medical (Same as: Center Tylenol) Saline Flush 0.9% Notes: (Same as: Inactive 01/15 [facility] BD Posiflush) 2018 Medical [place] Sodium Chloride 1,000 mL, Rate: Inactive Danielle 0.9% IV 1,000 mL 100 ml/hr, 2018 [facility] kary Infuse over: 10 Center hr, Route: IV, Dosing Weight 75 kg, Total Volume: 1,000, Start date: 01/26/18 0:54:00 CDT, Duration: 30 day, Stop date: 02/25/18 0:53:00 CDT, 1.89, m2 Docusate Notes: (Same as: Inactive [place] Colace) (Do Not 2018 Medical Crush) Center Ondansetron Notes: (Same as: Inactive Danielle Zofran) 2018 Medical MEDICATION WASTE Center Product Size: 4 mg Product Wasted: ___ mg Gentamicin Notes: TIME No Longer Sherie johnson CRITICAL Active 2018 Medical MEDICATION (Same Center as Garamycin) For adult patients only: Round to nearest 10 mg per Medical Staff approval Morphine 4 mg, Route: Inactive [place] IVP, ONCE, 2018 Medical Dosing Weight Center 75, kg, Priority: STAT, Start date: 01/25/18 23:14:00 CDT, Stop date: 01/25/18 23:14:00 CDT Zofran 4 mg, Route: Inactive [place] IVP, Drug form: 2018 Medical INJ, ONCE, Center Dosing Weight 75, kg, Priority: STAT, Start date: 01/25/18 23:14:00 CDT, Stop date: 01/25/18 23:14:00 CDT Fentanyl 50 microgram, Inactive [place] Route: IVP, 2018 Medical ONCE, Dosing Center Weight 75, kg, Priority: STAT, Start date: 01/25/18 21:53:00 CDT, Stop date: 01/25/18 21:53:00 CDT Allergies, Adverse Reactions, Alerts Substance Category Reaction Severity Reaction Status Date Comments S ource type Reported No Known Assertion Drug SM R Medication allergy [facility] Allergies Immunizations No Data Provided for This Section Results Order Name Results Value Reference Date Interpretation Comments Dalia rce Range CHEM PANEL eGFR 62 01/26 Result Comment: The Medical eGFR is Center calculated using the CKD-EPI formula. In most young, healthy individuals the eGFR will be >90 mL/min/1.73m2 . The eGFR declines with age. An eGFR of 60-89 may be normal in some populations, particularly the elderly, for whom the CKD-EPI formula has not been extensively validated. Use of the eGFR is not recommended in the following populations:< br/>
Yessy viduals with unstable creatinine concentration s, including patients and those with serious co-morbid conditions.<b r/>
Patie nts with extremes in muscle mass or diet.

The data above are obtained from the National Kidney Disease Education Program (NKDEP) which additionally recommends that when the eGFR is used in patients with extremes of body mass index for purposes of drug dosing, the eGFR should be multiplied by the estimated BMI. CHEM PANEL Potassium Lvl 4.1 3.5 - 5.1 01/26 [place] [facility] CHEM PANEL Sodium Lvl 141 135 - 145 01/26 [facility] CHEM PANEL Creatinine 1.26 0.50 - 01/26 [facility] Lvl 1.40 [facility] CHEM PANEL BUN 13 7 - 22 09/ [facility] CHEM PANEL Glucose Lvl 309 70 - 99 01/26 [facility] CHEM PANEL CO2 20 24 - 32 09/ [facility] CHEM PANEL AGAP 19.1 10.0 - 09 [place] 20.0 [facility] CHEM PANEL Chloride Lvl 106 95 - 109 01/26 [facility] CHEM PANEL Calcium Lvl 8.2 8.5 - 10.5 01/26 [facility] HEMATOLOGY MPV 12.5 7.4 - 10.4 01/26 [facility] HEMATOLOGY Platelet 168 133 - 450 09 [facility] HEMATOLOGY MCV 92.8 80.0 - 09 [place] 94.0 [facility] HEMATOLOGY Hct 40.4 42.0 - 01/26 [place] 54.0 [facility] HEMATOLOGY Hgb 13.5 14.0 - 01/26 [place] 18.0 [facility] HEMATOLOGY RBC 4.35 4.70 - 01/26 [place] 6.10 [facility] HEMATOLOGY WBC 14.6 3.7 - 10.4 01/26 [facility] HEMATOLOGY RDW 13.4 11.5 - 09 [place] 14.5 [facility] HEMATOLOGY MCHC 33.4 32.0 - 09 [place] 36.0 [facility] HEMATOLOGY MCH 31.0 27.0 - 01/26 [place] 31.0 [facility] HEMATOLOGY Basophils # 0.1 0.0 - 0.2 09 [facility] HEMATOLOGY Eosinophils 0.1 0.0 - 4.0 01/26 [facility] HEMATOLOGY Lymphocytes 6.5 20.0 - 09 [place] 40.0 [facility] HEMATOLOGY Monocytes 3.9 2.0 - 12.0 01/26 [facility] HEMATOLOGY Segs 89.2 45.0 - 09 [place] 75.0 [facility] HEMATOLOGY Basophils 0.3 0.0 - 1.0 01/26 [facility] HEMATOLOGY Neutrophils # 13.0 1.5 - 8.1 01/26 [place] [facility] HEMATOLOGY Lymphocytes # 1.0 1.0 - 5.5 01/26 [facility] xa [facility] HEMATOLOGY Monocytes # 0.6 0.0 - 0.8 01/26 [facility] s [facility] SPECIAL Hgb A1C 6.7 <=5.6 % 01/26 [facility] CHEMISTRY [facility] BLOOD BANK Antibody Scrn Negative 01/26 Khurram as RESULTS (01/25/18 9:52 PM) [facility] BLOOD BANK ABO/Rh A POS 01/26 [facility] RESULTS [facility] CHEM PANEL eGFR 94 01/26 Result Comment: [facility] eGFR is Center calculated using the CKD-EPI formula. In most young, healthy individuals the eGFR will be >90 mL/min/1.73m2 . The eGFR declines with age. An eGFR of 60-89 may be normal in some populations, particularly the elderly, for whom the CKD-EPI formula has not been extensively validated. Use of the eGFR is not recommended in the following populations:< br/>
Yessy viduals with unstable creatinine concentration s, including patients and those with serious co-morbid conditions.<b r/>
Patie nts with extremes in muscle mass or diet.

The data above are obtained from the National Kidney Disease Education Program (NKDEP) which additionally recommends that when the eGFR is used in patients with extremes of body mass index for purposes of drug dosing, the eGFR should be multiplied by the estimated BMI. CHEM PANEL Glucose Lvl 146 70 - 99 01/26 [facility] CHEM PANEL AGAP 12.7 10.0 - 01/26 [facility] 20.0 [facility] CHEM PANEL Calcium Lvl 8.5 8.5 - 10.5 01/26 Khurram as [facility] CHEM PANEL Creatinine 0.88 0.50 - 01/26 [facility] Lvl 1.40 [facility] CHEM PANEL Chloride Lvl 112 95 - 109 01/26 [facility] s [facility] CHEM PANEL CO2 23 24 - 32 01/26 [facility] CHEM PANEL Sodium Lvl 143 135 - 145 01/26 [facility] CHEM PANEL Potassium Lvl 4.7 3.5 - 5.1 01/26 [facility] x[facility] CHEM PANEL BUN 12 7 - 22 01/26 [facility] HEMATOLOGY Estimated % 1.8 0.0 - 7.5 01/26 [place] [facility] [place] HEMATOLOGY R-time Rapid 0.8 0.4 - 0.7 01/26 [facility] HEMATOLOGY K-time Rapid 1.3 0.6 - 2.3 01/26 [place] [facility] HEMATOLOGY Angle Rapid 72 64 - 80 01/26 [facility] HEMATOLOGY ACT (TEG) 128 86 - 118 01/26 [place] [facility] HEMATOLOGY [place] 0.6 01/26 [place] [facility] HEMATOLOGY G-value Rapid 11.5 5.0 - 11.6 01/26 [place] [facility] HEMATOLOGY Max Amplitude 70 52 - 71 01/26 [place] [facility] HEMATOLOGY Platelet 196 133 - 450 01/26 [facility] HEMATOLOGY MPV 11.6 7.4 - 10.4 01/26 [facility] HEMATOLOGY Hct 44.4 42.0 - 01/26 54.0 [facility] HEMATOLOGY RDW 13.4 11.5 - 01/26 14.5 [facility] HEMATOLOGY MCHC 33.2 32.0 - 01/26 [place] 36.0 [facility] HEMATOLOGY MCH 30.6 27.0 - 01/26 31.0 [facility] HEMATOLOGY MCV 92.4 80.0 - 01/26 [place] 94.0 [facility] HEMATOLOGY Hgb 14.7 14.0 - 01/26 18.0 [facility] HEMATOLOGY RBC 4.81 4.70 - 01/26 [place] 6.10 [facility] HEMATOLOGY WBC 16.0 3.7 - 10.4 01/26 [facility] HEMATOLOGY PT 14.0 12.0 - 01/26 [place] 14.7 [facility] HEMATOLOGY INR 1.08 0.85 - 01/26 [place] 1.17 [facility] HEMATOLOGY Basophils 1.0 0.0 - 1.0 01/26 [facility] HEMATOLOGY Neutrophils # 12.2 1.5 - 8.1 01/26 [place] [facility] HEMATOLOGY Monocytes # 1.1 0.0 - 0.8 01/26 [place] [facility] HEMATOLOGY Lymphocytes # 2.4 1.0 - 5.5 01/[address] [facility] [place] [address] HEMATOLOGY Eosinophils # 0.2 0.0 - 0.5 01/26 [facility] xa [facility] HEMATOLOGY Basophils # 0.2 0.0 - 0.2 01/26 [facility] 2017 [facility] HEMATOLOGY Monocytes 6.6 2.0 - 12.0 01/26 [facility] HEMATOLOGY Eosinophils 0.9 0.0 - 4.0 01/26 [facility] HEMATOLOGY Segs 76.2 45.0 - 01/26 [facility] 75.0 [facility] HEMATOLOGY Lymphocytes 15.3 20.0 - 01/26 [facility] 40.0 [facility] Pathology Reports No Data Provided for This Section Diagnostic Reports No Data Provided for This Section Consultation Notes No Data Provided for This Section Discharge Summaries No Data Provided for This Section History and Physicals No Data Provided for This Section Vital Signs Vital Sign Value Date Comments Source Heart Rate 64 01/26/[address] [facility] Temperature Oral (F) 98.0 F 01/26/2018 [facility] Systolic (mm Hg) 116 01/26/2018 [facility] Diastolic (mm Hg) 67 01/26/2018 [facility] Respitory Rate 18 01/26/2018 [facility] Systolic (mm Hg) 126 01/26/2018 [facility] Diastolic (mm Hg) 72 01/26/2018 [facility] Heart Rate 72 01/26/[address] [facility] Respitory Rate 17 01/26/2018 [facility] Temperature Oral (F) 97.8 F 01/26/2018 [facility] Respitory Rate 18 01/26/2018 [facility] Temperature Oral (F) 98 F 01/26/2018 [facility] Heart Rate 69 01/26/2018 [facility] Systolic (mm Hg) 168 01/26/2018 [facility] dical Center Diastolic (mm Hg) 97 01/26/2018 [facility] BMI Calculated 2.67 01/26/2018 [facility] Weight 75.045 01/26/2018 [facility] Height 530 cm 01/26/2018 [facility] Weight 75 01/26/2018 [facility] Height 167.64 cm 01/26/[address] [facility] BMI Calculated 26.69 01/26/2018 [facility] Encounters Location Location Encounter Encounter Reason Attending ADM DC Stat us Source Details Type Number For Provider Date Date Visit [facility] [id number] [place] 01/26 01/26 Danielle Garcia /2017 [facility] OP Therapy [id number] [place] 02/10 03/12 [facility] Patients Colette /2017 [facility] Procedures Procedure Code Date Perfomer Comments Source Plastic repair [id number] 01/26/2018 [facility] Assessment and Plan Assessment and Plan Date Source Extracted from:Title: History and Physical 01/26/2018 [facility] Author: Giselle Huff MD Date: 01/26/18 Pt is a 57 y/o male with PMHx significan t for possibly HTN who presents today after injuring his left forearm on hand saw. Laceration of forearm - ORS hand on board, appreicate assistance, concern for tend on injury - plans for OR in AM - NPO, start IVF - pain control with tylenol/tramadol for now as pt in minima l pain - cont abx per ORS ancef - likely will need OT prior to d/c Ordered: Admit/Condition, 01/26/18 0:54:00 CDT, S tatus: Inpatient, Acute, Location: [address] [place] [address], Expected LOS: 2 Midnights, Giselle Huff MD, Admit Review/Approve Yes, Isolation: No Isolation/Standard Precautions Admit/Condition, 01/25/18 23:49:00 CDT, Status: Inpatient, Acute, Location: [address] [place] [address], Expected LOS: 1 Midnight, Giselle Huff MD, Admit Review/Approve Yes 2. Elevated BP - pt with history of elevated BP in the past, likely undiagnosed hypertension, pt does not go to PCP often - will start on low dose lisinopril, pt not in pain when I w ent to see him 3. Hyperglycemia - BS 147 - will check A1c - cont with POCT Glucose checks ambulation pending ORS clearance Extracted from:Title: ORS HAND TRAUMA INITIAL CONSULT H&P Author: Leilani Flannery Date: 01/25/18 ORS Hand Trauma Consult History and Physical Reason for Consult: L forearm lac with tendon injury Source of Consult: ER Date of Service: 01/25/18 Consulting Physician: [facility] Attending: [place] CC: L forearm pain HPI: The pt is a 57 y/o [place]-speaking M s/p accidental cut by rotary saw while cutting tree branches when it caught his sleeve sustaining a L deep traumatic forearm laceration at approximately 12pm. Reports severe pain in L forearm worse w ith ROM and palpation and improved with rest. Transferred from an OSH for higher level care. Denies other trauma/injury, pain or loss of ROM in other extremities. Denies radiation, N/T, or other paresthesias. LEXX: 10am. PMH: "a little bit of diabetes" PSH: Denies Medications: Denies Allergies: NKDA Review of Systems: Gen: Denies fever/chills/night sweats. HEENT: Denies vision change, sore throat, ulcers in mouth, e pistaxis CV: Denies CP, Palpitations Resp: Denies SOB, wheezing, cough GI: Denies Abd pain, N/V/D/Constipation. Denies incontinence . : Denies urinary retention, urgency, burning, discharge. Back/Spine: Denies pain. Neuro: Denies N/T, other paresthesias in extremities. Endocrine: Denies recent weight changes, heat/cold insensiti vity. Psych: Denies depression, anxiety, labile mood, suicidal/kathy icidal ideation. Musculoskeletal: Denies all but HPI. All other systems negative except HPI. Social History: Tobacco: 5-6 cigarettes per day EtOH: Social Illicit drugs: Denies RHD. 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 Family History: DM Vitals: Vitals Tmp(F) Pulse BP RR SpO2 FIO2 01/25 23:44 ---- 72 145/81 18 98 --- 01/25 23:27 ---- 79 178/93 20 99 --- 01/25 21:37 98.0 85 166/18 20 97 --- 24 Hr Tmax: 98.0F (36.67c) at 01/25 21:3 7 Vital Signs are the last 5 in the past 48 hours. Exam: Gen: A&O x 3. in NAD. LUE: Inspection: +9.0 cm x 6.0 cm oblique tra umatic wound at proximal dorsal forearm with significant loss of muscle tissue (extensor digitorum, extensor carpi radialis longus/brevis and possible brachioradi alus). Neg. gross contamination. Neg. pulsatile bleeding. Sensation: 2-pt discrimination intact in all digits; sensation intact to light touch m/u/r nerves Motor: intact AIN/PIN/Ulnar in hand; 5/5 Wrist flex; 0/5 WE without assistance and 3/5 wrist ext when press down at distal dorsal forearm; 4/5 Elbow flex/ext; 5/5 Shoulder ABd,Flex Loss of extension of middle and ring fin sharlene (EDC) otherwise FDS/FDP and extensors intact all remaining digits. Vascular: radial pulse palpated, BCR all fingers <2 sec. RUE: Inspection: no gross abnormality, no crepitis, no tenderness to palpation Sensation: sensation intact to light touch m/r/u n Motor: intact AIN/PIN/Ulnar in hand; 5/5 Wrist flex/ext; Elbow flex/ext; Shoulder ABd,Flex Vascular: 2+ radial pulse palpated, BCR all fingers <2 sec. Imaging: L forearm x-rays: Neg. fx; soft tissue swelling A/P: 57 y/o M c L forearm traumatic deep lace ration without foreign body with extensor muscle and tendon injury (EDC, ECRL, ECRB and possible brachioradialis) of s/p saw - Weight bearing status: NWB LUE - IV Ancef q 8hrs, IV Gentamycin - Short arm volar resting splint applied in cock-up position LUE; post-splint neurovasc exam unchanged - Pain control - Dressings: keep c/d/i - NPO q midnight - Pre-op labs - Marked, consented - Dispo: Admit to Hospitalist; plan for OR in AM with Dr. Alvarenga for I&D, wound exploration, possible muscle/tendon/artery/ligament/nerve repair, possible closure L forearm; will continue to follow while in-house Plan of Care No Data Provided for This Section Social History Social History Date Source Social History TypeResponse 01/26/2018 [facility] Substance Abuse Use: None. Alcohol Current, Type Beer. Frequency: 1-2 times per week. Smoking Status Current every day smoker; Type: Cigarett es; Ready to change: Yes; Exposure to Tobacco Smoke None; Cigarette Smoking Last 365 Days No; Reg Smoking Cessation Counseling No entered on: 01/26/18 Social History TypeResponse 01/26/2018 [facility] Substance Abuse Use: None. Alcohol Current, Type Beer. Frequency: 1-2 times per week. Smoking Status Current every day smoker; Type: Cigarett es; Ready to change: Yes; Exposure to Tobacco Smoke None; Cigarette Smoking Last 365 Days No; Reg Smoking Cessation Counseling No entered on: 01/26/18 Family History No Data Provided for This Section Advance Directives No Data Provided for This Section Functional Status No Data Provided for This Section
--- OUTSIDE RECORDS SUMMARY | 2020-04-25 00:40 | XMS REPORT | Continuity of Care Document ---
:1960 Author Organization [facility] t Address [address] [place] [address] Care Team Providers Name Role Phone Octavio Valentin Attending Clinician Nilesh Jo Attending Clinician DEYSI Attending Clinician Unavailable Cory Huff Attending Clinician Cory Huff Admitting Clinician Problems Condition Condition Condition Status Onset Resolution Last Treating Co mments Source Name Details Category Date Date Treatment Clinician Date LEFT YOKE Diagnosis Active 2018-02-16 Memoria SPLINT 01-26 13:55:00 l (DOS LEFT 08:00: Lalit 01/26/18) YOKE 00 SPLINT (DOS 01/26/18) Active 01/26/2018 [facility] LEFT Diagnosis Active 2018-01-25 Mem oria FOREARM - 23:29:00 l LAC LEFT 00:00: Lalit FOREARM 00 LAC Active 01/25/2018 [facility] FOREARM Diagnosis Active 2018-02-16 Me moria LAC 01-25 13:43:00 l FOREARM 00:00: Lalit LAC 00 Active 01/25/2018 [facility] Laceration Laceration Problem Active U nivers of of HL7.CCDAR2 ity of extensor extensor [place] muscle, muscle, Physici fascia and fascia and an s tendon of tendon of left left little little finger at finger at forearm forearm level, level, subsequent subsequent encounter encounter Extensor Extensor Problem Active Unive rs tendon tendon HL7.CCDAR2 ity of lac[place] laceration [place] of elbow of elbow Physic i with open with open ans wound, wound, left, left, subsequent subsequent encounter encounter Stiffness Problem 2018-09-28 Me moria of left 13:06:44 l hand, not Lalit elsewhere Stiffness classified of left hand, not elsewhere classified 09/28/2018 [facility] Muscle Problem 2018-09-28 Memor ia wasting 13:06:44 l and Muscle Lalit atrophy, wasting not and elsewhere atrophy, classified not , left elsewhere hand classified , left hand 9 [facility] Laceration Problem 2018-09-28 M emoria of 13:06:44 l extensor Lalit muscle, Laceration fascia and of tendon of extensor left muscle, middle fascia and finger at tendon of wrist and left hand middle level, finger at subsequent wrist and encounter hand level, subsequent encounter 09/28/2018 [facility] Laceration Problem 2018-09-28 emoria of 13:06:44 l extensor Lalit muscle, Laceration fascia and of tendon of extensor left ring muscle, finger at fascia and wrist and tendon of hand left ring level, finger at subsequent wrist and encounter hand level, subsequent encounter 09/28/2018 [facility] Exposure Problem 2018-09-28 Mem oria to other 13:06:44 l specified Exposure Her biswas factors, to other subsequent specified encounter factors, subsequent encounter 09/28/2018 [facility] Laceration Problem 2018-08-15 M emoria without 14:38:49 l foreign Lalit body of Laceration left without forearm, foreign initial body of encounter left forearm, initial encounter 08/15/2018 [facility] Elevated Problem 2018-08-15 Mem oria blood-pres 14:38:49 l sure Elevated Garcia n reading, blood-pres without sure diagnosis reading, of without hypertensi diagnosis on of hypertensi on 08/15/2018 [facility] Hyperglyce Problem 2018-08-15 M emoria arash, 14:38:49 l unspecifie Garcia n d Hyperglyce arash, unspecifie d 08/15/2018 [facility] Nicotine Problem 2018-08-15 Mem oria dependence 14:38:49 l , Nicotine Garcia n cigarettes dependence , , uncomplica cigarettes saniya , uncomplica saniya 08/15/2018 [facility] Contact Problem 2018-08-15 Aj mary with 14:38:49 l powered Contact Garcia n garden and with outdoor powered hand tools garden and and outdoor machinery, hand tools initial and encounter machinery, initial encounter 08/15/2018 [facility] LACERATION Diagnosis Active 2018-02-16 Memoria WITHOUT 13:43:00 l FOREIGN [place] BODY OF LACERATION UNSP WITHOUT FOREIGN BODY OF UNSP Active [facility] Pain in Problem 2017-052018-09-28 2018-09-28 Memoria left hand 05-18 13:06:44 13:06:44 l Pain in 05:13: Lalit left hand 09 03/18/2018 09/28/2018 [facility] Laceration Problem 2017-052018-08-15 2018-08-15 Memoria of other 06-17 14:38:49 14:38:49 l extensor 05:00: Lalit muscle, Laceration 21 fascia and of other tendon at extensor forearm muscle, level, fascia and left arm, tendon at initial forearm encounter level, left arm, initial encounter 04/16/2018 08/15/2018 [facility] Allergies, Adverse Reactions, Alerts Allergy Allergy Status Severity Reaction(s) Onset Inactive Treating Comm ents Source Name Type Date Date Clinician No Known No Known Active Memori a Medicati Medicati l on on [place] Allergie Allergie s s Social History Social Habit Start Date Stop Date Quantity Comments Source Social History 2018-01-26 2018-01-26 [facility] Saumya richards 10:03:42 10:03:42 Medications Ordered Filled Start Stop Current Ordering Indication Dosage Frequency Signature Comments Components Source Medication Medication Date Date Medication? Clinician (SIG) Name Name TraMADol TraMADol Yes ERNIE TAKE 1 TO [facility] HCl - 50 MG HCl - 50 MG 02-10 DEYSI 2 TABLETS ity of Oral Tablet Oral Tablet 00:00: M.D. EVERY 4 TO 00 6 HOURS Physici NEEDED FOR ans PAIN. tramadol No 50 mg = 1 Aj mary hydrochlori 9-12 tab, PO, l de 50 MG 13:46: Q6H, PRN Adrienne nn Oral Tablet 00 Pain, X 5 day, # 24 tab, 0 Refill(s) cefpodoxime No 100 mg = 1 Memoria 100 mg oral 9-12 tab, PO, l tablet 13:43: Q12H, X 7 Garcia n 00 day, # 14 tab, 0 Refill(s), Pharmacy: [facility] [id number] Sulfamethox 2018-0 No 1 tab, PO, Memoria azole 800 9-12 BID, X 7 l MG / 13:43: day, # 14 [place] Trimethopri 00 tab, 0 m 160 MG Refill(s), Oral Tablet Pharmacy: [Bactri] [facility] [id number] Oxycodone 2018-0 No 5 mg, Memoria 01-26 Route: PO, l 08:08: Drug form: Lalit 00 TAB, Q4H, Dosing Weight 75, kg, PRN Pain Score 4-6, Start date: 01/26/18 3:08:00 CDT, Duration: 30 day, Stop date: 02/25/18 3:07:00 CDT Labetalol 2018-0 No 10 mg, Memori a 01-26 Route: l 08:08: IVP, [place] 00 Q5Min, Dosing Weight 75, kg, PRN Elevated BP, Start date: 01/26/18 3:08:00 CDT, Duration: 5 doses or times, Stop date: Limited # of times Promethazin 2018-0 No 6.25 mg, Me moria e 01-26 Route: l 08:08: IVPB, [place] 00 ONCE, Dosing Weight 75, kg, PRN Nausea & Vomiting, Start date: 01/26/18 3:08:00 CDT Ondansetron 2018-0 No 4 mg, Memor ia 01-26 Route: l 08:08: IVP, ONCE, Lalit 00 Dosing Weight 75, kg, PRN Nausea & Vomiting, Start date: 01/26/18 3:08:00 CDT Hydromorpho 2018-0 No 0.5 mg, Mem oria ne 01-26 Route: l 08:08: IVP, [place] 00 Q5Min, Dosing Weight 75, kg, PRN Pain Score 7-10, Start date: 01/26/18 3:08:00 CDT, Duration: 4 doses or times, Stop date: Limited # of times Flumazenil 2018-0 No 0.2 mg, Aj mary 01-26 Route: l 08:08: IVP, PRN, Lalit 00 Dosing Weight 75, kg, PRN Benzodiaze pine Reversal, Initial dose, Start date: 01/26/18 3:08:00 CDT, Duration: 30 day, Stop date: 02/25/18 3:07:00 CDT Naloxone 2018 No 0.4 mg, Memori a 01-26 Route: l 08:08: IVP, [place] 00 Q2MIN, Dosing Weight 75, kg, PRN Narcotic Reversal, Start date: 01/26/18 3:08:00 CDT, Duration: 8 doses or times, Stop date: Limited # of times Ancef No Notes: Memoria 01-26 (Same As: l 07:00: Ancef, Lalit Kefzol) MEDICATION WASTE Product Size: 1000 mg Product Wasted: ___ mg Lisinopril No Notes: Memor ia 01-26 (Same as: l 05:56: Prinivil, [place] Zestril) tramadol No Notes: Not Mem oria hydrochlori 01-26 to exceed l de 50 MG 05:55: 400mg/day. Her biswas Oral Tablet 00 (Same As: Ultram) Acetaminoph No Notes: Do M emoria en 01-26 not exceed l 05:54: 4 gm/day. Lalit (Same as: Tylenol) Saline No Notes: Memoria Flush 0.9% 01-26 (Same as: l 05:54: BD Lalit Posiflush) Sodium No 1,000 mL, Memori a Chloride 01-26 Rate: 100 l 0.9% IV 05:54: ml/hr, [place] 1,000 mL 00 Infuse over: 10 hr, Route: IV, Dosing Weight 75 kg, Total Volume: 1,000, Start date: 01/26/18 0:54:00 CDT, Duration: 30 day, Stop date: 02/25/18 0:53:00 CDT, 1.89, m2 Docusate No Notes: Memoria 01-26 (Same as: l 05:54: Colace) [place] 00 (Do Not Crush) Ondansetron No Notes: Aj mary 01-26 (Same as: l 05:54: Zofran) Lalit 00 MEDICATION WASTE Product Size: 4 mg Product Wasted: ___ mg Gentamicin 2018-0 No Notes: Memor ia 01-26 TIME l 04:45: CRITICAL Lalit MEDICATION (Same as Garamycin) For adult patients only: Round to nearest 10 mg per Medical Staff approval Morphine 2017-0 No 4 mg, Memoria 01-26 Route: l 04:14: IVP, ONCE, Lalit 00 Dosing Weight 75, kg, Priority: STAT, Start date: 01/25/18 23:14:00 CDT, Stop date: 01/25/18 23:14:00 CDT Zofran 2017-0 No 4 mg, Memoria 01-26 Route: l 04:14: IVP, Drug form: INJ, ONCE, Dosing Weight 75, kg, Priority: STAT, Start date: 01/25/18 23:14:00 CDT, Stop date: 01/25/18 23:14:00 CDT Fentanyl 2017-0 No 50 Memoria 01-26 microgram, l 02:53: Route: [place] 00 IVP, ONCE, Dosing Weight 75, kg, Priority: STAT, Start date: 01/25/18 21:53:00 CDT, Stop date: 01/25/18 21:53:00 CDT Vital Signs Vital Name Observation Time Observation Value Comments Source Heart Rate 2018-01-26 17:08:00 [facility] Temperature Oral (F) 2018-01-26 17:08:00 98.0 F [facility] [place] Systolic (mm Hg) 2018-01-26 17:08:00 Aj rial Lalit Diastolic (mm Hg) 2018-01-26 17:08:00 Mem orial [place] Respitory Rate 2018-01-26 17:08:00 Memori al Lalit Systolic (mm Hg) 2018-01-26 12:58:00 Aj rial Lalit Diastolic (mm Hg) 2018-01-26 12:58:00 Mem orial Lalit Heart Rate 2018-01-26 12:58:00 [facility] Respitory Rate 2018-01-26 12:58:00 Memori al Lalit Temperature Oral (F) 2018-01-26 12:58:00 97.8 F [facility] [place] Respitory Rate 2018-01-26 09:59:00 Memori al [place] Temperature Oral (F) 2018-01-26 09:59:00 98 F [facility] [place] Heart Rate 2018-01-26 09:59:00 [facility] [place] Systolic (mm Hg) 2018-01-26 09:59:00 Aj ahumada Lalit Diastolic (mm Hg) 2018-01-26 09:59:00 Mem orial Lalit BMI Calculated 2018-01-26 09:56:00 Memori al Lalit Weight 2018-01-26 09:56:00 [facility] [place] Height 2018-01-26 09:56:00 530 cm [facility] Weight 2018-01-26 02:37:00 [facility] Height 2018-01-26 02:37:00 167.64 cm [facility] BMI Calculated 2018-01-26 02:37:00 Memori al [place] Procedures Procedure Date / Time Performed Performing Clinician [facility] shirley Plastic repair of tendon 2018-01-26 05:00:00 Mem orial Lalit Encounters Start End Encounter Admission Attending Care Care Encounter Source Date/Time Date/Time Type Type Clinicians Facility Department ID 2019-08-09 2019-08-09 Telemedici Lily [facility] [id number] 08:06:08 08:21:08 ne Visit [facility] [id number] Surgical [id number] Specialti [id number] es [address] [place] 2018-02-10 2018-03-11 Outpatient Deysi [id number] 15:00:00 23:59:00 Ernie Galloway [id number] 2018-02-10 2018-02-10 Appointmen GRETCHEN JO [facility]oped[facility] [id number] [facility] 14:00:00 14:00:00 t; [place] KLE[place] KYLE, M.D. Physi ci ans 2018-02-04 2018-02-04 Appointmen GRETCHEN JO [facility] [id number] [facility] 12:00:00 12:00:00 t; [place] K[place] KYLE, M.D. Physi ci ans 2018-01-25 2018-01-26 Outpatient Refugio [facility] [id number] 21:33:00 14:06:00 Giselle Ray Results Test Description Test Time Test Comments Results Result Comments Source CHEM PANEL 2018-01-26 62 [facility] Adrienne nn 10:48:00 CHEM PANEL 2018-01-26 4.1 [facility] Adrienne nn 10:48:00 CHEM PANEL 2018-01-26 141 [facility] Adrienne nn 10:48:00 CHEM PANEL 2018-01-26 1.26 [facility] Adrienne nn 10:48:00 CHEM PANEL 2018-01-26 13 [facility] Adrienne nn 10:48:00 CHEM PANEL 2018-01-26 309 [facility] Adrienne nn 10:48:00 CHEM PANEL 2018-01-26 20 [facility] Adrienne nn 10:48:00 CHEM PANEL 2018-01-26 19.1 [facility] Adrienne nn 10:48:00 CHEM PANEL 2018-01-26 106 [facility] Adrienne nn 10:48:00 CHEM PANEL 2018-01-26 8.2 [facility] Adrienne nn 10:48:00 HEMATOLOGY 2018-01-26 12.5 [facility] Adrienne nn 10:48:00 HEMATOLOGY 2018-01-26 168 [facility] Adrienne nn 10:48:00 HEMATOLOGY 2018-01-26 92.8 [facility] Adrienne nn 10:48:00 HEMATOLOGY 2018-01-26 40.4 [facility] Adrienne nn 10:48:00 HEMATOLOGY 2018-01-26 13.5 [facility] Adrienne nn 10:48:00 HEMATOLOGY 2018-01-26 4.35 [facility] Adrienne nn 10:48:00 HEMATOLOGY 2018-01-26 14.6 [facility] Adrienne nn 10:48:00 HEMATOLOGY 2018-01-26 13.4 [facility] Adrienne nn 10:48:00 HEMATOLOGY 2018-01-26 33.4 [facility] Adrienne nn 10:48:00 HEMATOLOGY 2018-01-26 10:48:00 Test Item Value Reference Range Interpretation Comme nts MCH (test code = MCH) 31.0 pg 27.0-31.0 [facility] HxpimadUXUUOMRTWC9554-04-20 10:48:000.1[facility]ann[facility]MATOLOGY 2018-01-26 10:48:000.1[facility] KqdytwqKOQCPUPXYM8703-70-95 10:48:006.5[facility] PqxvznnQHOSUZRARH1214-91-78 10:48:003.9[facility] RxchsruEVRVHIEGUP3489-23-29 10:48:0089.2[facility] NmmtqboFKOQAZVBTX9777-46-16 10:48:000.3[facility] Lalit AJCMVOGAIS8693-33-42 10:48:0013.0[facility] EhazvtwXHNNYHTLJW9645-30-82 10:48:00 1.0[facility] EkunuoyVVVLMVYCNO9351-50-33 10:48:000.6[facility] HermannSPECIAL FCJJTYSQT1278-88-88 10:48:006.7[facility] HermannBLOOD BANK FTRIDAR8126-85-55 02:52:00Negative (01/25/18 9:52 PM)[facility] HermannCHEM JCGJR1060-03-29 02:50:00 94[facility] HermannCHEM BMYSU3822-00-98 02:50:29528Llkyzlak HermannCHEM PANEL 2018-01-26 02:50:0012.7[facility] HermannCHEM PZNYK7603-33-29 02:50:008.5[facility] HermannCHEM UKWDE4963-43-22 02:50:000.88[facility] HermannCHEM QQUJO2231-71-46 02:50:97146Mjyxjyaa HermannCHEM RIDNI2719-44-06 02:50:0023[facility] HermannCHEM SMFMF6705-93-06 02:50:81914Rxomhsod HermannCHEM CHUFO1536-65-11 02:50:004.7 [facility] HermannCHEM YLNMU0815-46-44 02:50:0012[facility] HermannHEMATOLOGY 2018-01-26 02:50:001.8[facility] JcbwfxwUKPGZYGDZB4640-74-73 02:50:00 Test Item Value Reference Range Interpretation Comments R-time Rapid (test code = R-time 0.8 min 0.4-0.7 Rapid) [facility] KcnqdihPGKDXWUDYI5951-19-72 02:50:00 Test Item Value Reference Range Interpretation Comments K-time Rapid (test code = K-time 1.3 min 0.6-2.3 Rapid) [facility] PxnrzqrTBCYVMAYPV7117-97-99 02:50:00 Test Item Value Reference Range Interpretation Comments Angle Rapid (test code = Angle 72 degrees 64-80 Rapid) [facility]IvbdkbhWSLIEFFHOW2407-12-02 02:50:00 Test Item Value Reference Range Interpretation Comments ACT (TEG) Rapid (test code = ACT (TEG) 128 s 86-118 Rapid) [facility]ptownJiqdbhiGHJKTPIMSA8576-99-90 02:50:00 Test Item Value Reference Range Interpretation Comments Split Point Rapid (test code = Split 0.6 min Point Rapid) [facility]ownEpadodkLCASQTRBOM8599-83-57 02:50:0011.5[facility] HermannHEMATOLOGY 2018-01-26 02:50:00 Test Item Value Reference Range Interpretation Comments Max Amplitude Rapid (test code = Max 70 mm 52-71 Amplitude Rapid) [facility] UptownQtsmylyVOLDHJRLAH4290-09-90 02:50:83455Zaddrlfz HermannHEMATOLOGY 2018-01-26 02:50:0011.6[facility] VjzsoctNWFHFFWGMI1492-39-63 02:50:0044.4[facility] XwyeocnBYGLWJFWLM8692-11-58 02:50:0013.4[facility] EtocdutTRXSZJRIDO7322-38-67 02:50:0033.2[facility] PwnbpnoABLLCOSFDJ3882-87-26 02:50:00 Test Item Value Reference Range Interpretation Comments MCH (test code = MCH) 30.6 pg 27.0-31.0 [facility] CtwescyJURBZDTJEW3910-04-67 02:50:0092.4[facility] HermannHEMATOLOGY 2018-01-26 02:50:0014.7[facility] KvvobihKOQZRCEVYX3762-12-95 02:50:004.81[facility] DelisjkHCLISOUCLL0845-05-92 02:50:0016.0[facility] DaqpyczJYAQIMRYBL2475-15-64 02:50:00 Test Item Value Reference Range Interpretation Comments PT (test code = PT) 14.0 s 12.0-14.7 [facility] XzvmbwxVHEUVINBYU0558-41-55 02:50:00 Test Item Value Reference Range Interpretation Comments INR (test code = INR) 1.08 1 0.85-1.17 [facility]ownEpqmpmoQNFFPNGIBE3295-42-03 02:50:001.0[facility] HermannHEMATOLOGY 2018-01-26 02:50:0012.2[facility] MncvgtuUAJWWYUTSD1646-86-12 02:50:001.1[facility] OpijbuaQMUGJHVVBC7452-49-12 02:50:002.4[facility] UkxsfjtNUEVDDOIGG6398-09-91 02:50:000.2[facility] LeycphjMLYVSGVIQD8803-35-22 02:50:000.2[facility] Lalit UWBTWBPGCE9913-54-49 02:50:006.6[facility] WfbvxhuGPZAACJMVY7430-65-12 02:50:000.9 [facility] GzgjqegWOQNSHEGYY2944-28-99 02:50:0076.2[facility] HermannHEMATOLOGY 2018-01-26 02:50:0015.3[facility] Lalit
[2020-04-25 01:17] LABS: Absolute Lymphocytes (CBC) 3.3 K/uL (0.7-4.9); Basophils % 1.3 % (0-1.3); Hematocrit 45.1 % (39.6-49.0); Lymphocytes % 31.8 % (15.3-44.8); RBC Red Blood Cell Count 4.96 M/uL (4.33-5.43)
[2020-04-25 01:27] LABS: BUN Blood Urea Nitrogen 11 mg/dL (7-18); Bicarbonate 20 mmol/L (21-32); Glucose Level 204 mg/dL (74-106); Potassium 3.8 mmol/L (3.5-5.1); Sodium Level 139 mmol/L (136-145)
[2020-04-25] MEDS ORDERED: MEPERIDINE HCL 25 MG/ML SYR ONE (02:10)
[2020-04-25 03:08] LABS: Blood Morphology Comment NOT SEEN (NOT SEEN); Platelet Estimate ADEQ; White Blood Cell Scan OK (OK)
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
[2020-04-30 14:02] VITALS: TEMP 98.4
[2020-04-30 14:19] VITALS: BP 158/90; O2SAT 98
== END 2020-04-25 04:17 | disposition home or self-care (01) ==
LOC: ER 00:34
DX: S00.81XA Abrasion of other part of head, initial encounter (principal); S40.022A Contusion of left upper arm, initial encounter; S80.12XA Contusion of left lower leg, initial encounter; V47.6XXA Car passenger injured in collision with fixed or stationary object in traffic accident, initial encounter; I10 Essential (primary) hypertension; F17.210 Nicotine dependence, cigarettes, uncomplicated
CPT/HCPCS: 85025; 80048; 36415; 86900; 86850; 82565; 86901; 70450; 72125; 71260; 74177; 73060; 73552; 96374; 99284; Q9967; J2175; G0390

== ENCOUNTER 2023-04-04 10:13 | Emergency (ER) | payer BC ==
--- OUTSIDE RECORDS SUMMARY | 2023-04-04 10:20 | XMS REPORT | Continuity of Care Document ---
:1960 Author Organization [facility] t Address [address] [facility] [address] [place] [address] Care Team Providers Name Role Phone JOS EM CLARK Primary Care Physician Unavailable FLOWER GUTIERREZ Attending Clinician Unavailable FLOWER GUTIERREZ Attending Clinician Unavailable TITUS BORJA Attending Clinician Unavailable Flower Gutierrez MD Attending Clinician Titus Valentin Attending Clinician Doctor Unassigned, [place] Attending Clinician Unavailable Ernie Jo Attending Clinician ERNIE JO M.D. Attending Clinician Unavailable Giselle Huff Attending Clinician Giselle Huff Admitting Clinician Payers Payer Name Policy Type Policy Number Effective Date Expiration Date S [facility] - [id number] 2019 00:00:00 OUT OF STATE Problems Condition Condition Condition Status Onset Resolution Last Treating Co mments Source Name Details Category Date Date Treatment Clinician Date LEFT YOKE LEFT Diagnosis Active 2018-02-16 Memoria SPLINT YOKE 01-26 13:55:00 l (DOS SPLINT 08:00: [place] 01/26/18) (DOS 00 01/26/18) Active 01/26/2018 [facility] LEFT LEFT Diagnosis Active 2018-01-25 Mem oria FOREARM FOREARM 01-25 23:29:00 l LAC LAC 00:00: Lalit Active 01/25/2018 [facility] FOREARM FOREARM Diagnosis Active 2018-02-16 Memoria LAC LAC Active 01-25 13:43:00 l 01/25/2018 00:00: Garcia edwards [address] No known No known Disease Unive rs active active ity of problems problems [facility] Laceration Laceration Problem Active U T of of [id number].CCDAR2 Physic i extensor extensor ans muscle, muscle, fascia and fascia and tendon of tendon of left left little little finger at finger at forearm forearm level, level, subsequent subsequent encounter encounter Extensor Extensor Problem Active [place] tendon tendon HL7.CCDAR2 Physic i laceration laceration an s of elbow of elbow with open with open wound, wound, left, left, subsequent subsequent encounter encounter Laceration Laceratio Problem 2018-09-28 Memoria of n of 13:06:44 l extensor extensor Garcia n muscle, muscle, fascia and fascia and tendon of tendon of left ring left ring finger at finger at wrist and wrist and hand hand level, level, subsequent subsequent encounter encounter 09/28/2018 [facility] Exposure Exposure Problem 2018-09-28 Memoria to other to other 13:06:44 l specified specified Herm anne factors, factors, subsequent subsequent encounter encounter 09/28/2018 [facility] Laceration Laceratio Problem 2018-08-15 Memoria without n without 14:38:49 l foreign foreign Lalit body of body of left left forearm, forearm, initial initial encounter encounter 08/15/2018 [facility] Elevated Elevated Problem 2018-08-15 Memoria blood-pres blood-pres 14:38:49 l sure sure Lalit reading, reading, without without diagnosis diagnosis of of hypertensi hypertensi on on 08/15/2018 [facility] Hyperglyce Hyperglyc Problem 2018-08-15 Memoria arash, emia, 14:38:49 l unspecifie unspecifie He rmanne d d 08/15/2018 [facility] Nicotine Nicotine Problem 2018-08-15 Memoria dependence dependence 14:38:49 l , , [place] cigarettes cigarettes , , uncomplica uncomplica saniya saniya 08/15/2018 [facility] Contact Contact Problem 2018-08-15 Me moria with with 14:38:49 l powered powered Lalit garden and garden and outdoor outdoor hand tools hand tools and and machinery, machinery, initial initial encounter encounter 08/15/2018 [facility] LACERATION LACERATIO Diagnosis Active 2018-02-16 Memoria WITHOUT N WITHOUT 13:43:00 l FOREIGN FOREIGN Lalit BODY OF BODY OF UNSP UNSP Active [facility] Stiffness Stiffness Problem 2018-09-28 Memoria of left of left 13:06:44 l hand, not hand, not Herm anne elsewhere elsewhere classified classified 09/28/2018 [facility] Muscle Muscle Problem 2018-09-28 Aj mary wasting wasting 13:06:44 l and and Lalit atrophy, atrophy, not not elsewhere elsewhere classified classified , left , left hand hand 09/28/2018 [facility] Laceration Laceratio Problem 2018-09-28 Memoria of n of 13:06:44 l extensor extensor Garcia n muscle, muscle, fascia and fascia and tendon of tendon of left left middle middle finger at finger at wrist and wrist and hand hand level, level, subsequent subsequent encounter encounter 09/28/2018 [facility] History of Past Illness Condition Condition Condition Status Onset Resolution Last Treating Co mments Source Name Details Category Date Date Treatment Clinician Date Pain in Pain in Problem 2017-052018-09-28 2018-09-28 Memoria left hand left hand 1- 13:06:44 13:06:44 l 03/18/2018 05:13: Garcia n 09/28/2018 09 [facility] Laceration Laceratio Problem 2017-052018-08-15 2018-08-15 Memoria of other n of other 2- 14:38:49 14:38:49 l extensor extensor 05:00: Garcia n muscle, muscle, 21 fascia and fascia and tendon at tendon at forearm forearm level, level, left arm, left arm, initial initial encounter encounter 04/16/2018 08/15/2018 [facility] Allergies, Adverse Reactions, Alerts Allergy Allergy Status Severity Reaction(s) Onset Inactive Treating Comm ents Source Name Type Date Date Clinician No Known No Known Active Memori a Medicati Medicati l on on [place] Allergie Allergie s s NO KNOWN Drug Active Univers ALLERGIE Class ity of S [facility] Social History Social Habit Start Date Stop Date Quantity Comments Source Gender identity Universit y [facility] Sexual orientation Univer sity [facility] Exposure to Not sure University of SARS-CoV-2 (event) [facility] History of tobacco Smokes tobacco Un iversity of use daily [facility] Alcohol intake 2023-03-19 2023-03-19 0 /d University 00:00:00 00:00:00 [facility] History of Social 2022-10-16 2022-10-16 Univers ity of function 00:00:00 00:00:00 [facility] Tobacco use and 2022-10-16 2022-10-16 Smokeless Universit y of exposure 00:00:00 00:00:00 tobacco non-user [facility] Social History 2018-01-26 2018-01-26 [facility] 10:03:42 10:03:42 Sex [birth year] Universit y of 00:00:00 00:00:00 [facility] Smoking Status Start Date Stop Date Source Smokes tobacco daily 2022-10-16 00:00:00 [facility] ity of [facility] Current some day smoker 2016-04-29 00:00:00 [facility] Medications Ordered Filled Start Stop Current Ordering Indication Dosage Frequency Signature Comments Components Source Medication Medication Date Date Medication? Clinician (SIG) Name Name sodium 2022-05- No [id number] 30mg Uni vers hyaluronate 05-19 9100 ity of (viscosup) 16:15: 15:23 [place] (ORTHOYouEyeC) 00 :00 Medical injection Branch 30 mg sodium 2022-05- No [id number] 30mg 30 mg, U nivers hyaluronate 05-19 9100 Intra-deja i ty of (viscosup) 16:15: 15:23 Sherie oquendo (ORTHOVISC) 00 :00 ONCE, 1 Medic al injection dose, On Branch 30 mg 03/19/23 at 1115, Routine sodium 2022-05- No [id number] 30mg Uni vers hyaluronate 05-19 9100 ity of (viscosup) 16:15: 15:23 [place] (ORTHOVISC) 00 :00 Medical injection Branch 30 mg sodium 2022-05- No [id number] 30mg 30 mg, U nivers hyaluronate 05-19 9100 Intra-deja i ty of (viscosup) 16:15: 15:23 [place] (ORTHOV[place] 00 :00 ONCE, 1 Medic al injection dose, On Branch 30 mg 03/19/23 at 1115, Routine diclofenac 2023-0 Yes [id number] 75mg Take 1 Univers 75 mg EC 9-15 9100 tablet by ity of tablet 00:00: mouth 2 [place] 00 (two) Medical times Branch daily with meals. diclofenac 2023-0 Yes [id number] 75mg Take 1 Univers 75 mg EC 9-15 9100 tablet by ity of tablet 00:00: mouth 2 [place] 00 (two) Medical times Branch daily with meals. diclofenac 2023-0 Yes [id number] 75mg Take 1 Univers 75 mg EC 9-15 9100 tablet by ity of tablet 00:00: mouth 2 [place] 00 (two) Medical times Branch daily with meals. diclofenac 2023-0 Yes [id number] 75mg Take 1 Univers 75 mg EC 9-15 9100 tablet by ity of tablet 00:00: mouth 2 00 (two) Medical times Branch daily with meals. diclofenac 2023-0 Yes [id number] 75mg Take 1 Univers 75 mg EC 9-15 9100 tablet by ity of tablet 00:00: mouth 2 00 (two) Medical times Branch daily with meals. methylPREDN 2023-0 Yes [id number] 84mg Take 21 Univers ISolone 6-02 13275 tablets by ity o f (MEDROL, 00:00: mouth [place] ERICH,) 4 mg 00 SEE-INSTRU Med ical tablets CTIONS. Branch follow package directions methylPREDN 2023-0 Yes [id number] 84mg Take 21 Univers ISolone 6-02 [id number] tablets by ity o f (MEDROL, 00:00: mouth [place] ERICH,) 4 mg 00 SEE-INSTRU Med ical tablets CTIONS. Branch follow package directions methylPREDN 2023-0 Yes [id number] 84mg Take 21 Univers ISolone 6-02 [id number] tablets by ity o f (MEDROL, 00:00: mouth [place] ERICH,) 4 mg 00 SEE-INSTRU Med ical tablets CTIONS. Branch follow package directions methylPREDN 2023-0 Yes [id number] 84mg Take 21 Univers ISolone 6-02 [id number] tablets by ity o f (MEDROL, 00:00: mouth [place] ERICH,) 4 mg 00 SEE-INSTRU Med ical tablets CTIONS. Branch follow package directions methylPREDN 0 Yes [id number] 84mg Take 21 Univers ISolone 10-16 [id number] tablets by ity o f (MEDROL, 00:00: mouth [place] ERICH,) 4 mg 00 SEE-INSTRU Med ical tablets CTIONS. Branch follow package directions methylPREDN 2022-0 Yes [id number] 84mg Take 21 Univers ISolone 10-16 [id number] tablets by ity o f (MEDROL, 00:00: mouth [place] ERICH,) 4 mg 00 SEE-INSTRU Med ical tablets CTIONS. Branch follow package directions methylPREDN 0 Yes [id number] 84mg Take 21 Univers ISolone 10-16 [id number] tablets by ity o f (MEDROL, 00:00: mouth [place] ERICH,) 4 mg 00 SEE-INSTRU Med ical tablets CTIONS. Branch follow package directions triamcinolo 2020- No [id number] 40mg U nivers ne 10-10 ity of acetonide 20:00: 18:53 [place] (KENALOG) 00 :00 Medical injection Branch 40 mg triamcinolo 2020- No [id number] 40mg 40 mg, Univers ne 10-10- Intramuscu ity of acetonide 20:00: 18:53 [place], ONCE, [place] (KENALOG[place] 00 :00 1 dose, Medical injection Maira Branch 40 mg 10/10/20 at 1500, Routine triamcinolo 2020- No [id number] 40mg U nivers ne 10-10 ity of acetonide 20:00: 18:53 [place] (KENALOG) 00 :00 Medical injection Branch 40 mg triamcinolo 2020- No [id number] 40mg 40 mg, Univers ne 10-10- Intramuscu ity of acetonide 20:00: 18:53 lar, ONCE, [place] (KENALOG) 00 :00 1 dose, Medical injection Maira Branch 40 mg 10/10/20 at 1500, Routine diclofenac 2020- No [id number] 75mg Take 1 Univers 75 mg EC 3-25 04-25 tablet by ity o f tablet 00:00: 04:59 mouth 2 [place] 00 :00 (two) Medical times Branch daily with meals for 30 days. TraMADol TraMADol 2017- Yes ERNIE TAKE 1 TO [place] HCl - 50 MG HCl - 50 MG 02-10 DEYSI 2 TABLETS Physici Oral Tablet Oral Tablet 00:00: M.D. EVERY 4 TO ans 00 6 HOURS NEEDED FOR PAIN. tramadol 2017-0 No 50 mg = 1 Aj mary hydrochlori 9-12 tab, PO, l de 50 MG 13:46: Q6H, PRN Adrienne nn Oral Tablet 00 Pain, X 5 day, # 24 tab, 0 Refill(s) tramadol 2017-0 No 50 mg = 1 Aj mary hydrochlori 9-12 tab, PO, l de 50 MG 13:46: Q6H, PRN Adrienne nn Oral Tablet 00 Pain, X 5 day, # 24 tab, 0 Refill(s) tramadol 0 No 50 mg = 1 Aj mary hydrochlori 9-12 tab, PO, l de 50 MG 13:46: Q6H, PRN Adrienne nn Oral Tablet 00 Pain, X 5 day, # 24 tab, 0 Refill(s) tramadol 2017-0 No 50 mg = 1 Aj mary hydrochlori 9-12 tab, PO, l de 50 MG 13:46: Q6H, PRN Adrienne nn Oral Tablet 00 Pain, X 5 day, # 24 tab, 0 Refill(s) tramadol 2017-0 No 50 mg = 1 Aj mary hydrochlori 9-12 tab, PO, l de 50 MG 13:46: Q6H, PRN Adrienne nn Oral Tablet 00 Pain, X 5 day, # 24 tab, 0 Refill(s) cefpodoxime 2017- No 100 mg = 1 Memoria 100 mg oral 9-12 tab, PO, l tablet 13:43: Q12H, X 7 Garcai n 00 day, # 14 tab, 0 Refill(s), [id number] Sulfamethox 2017-0 No 1 tab, PO, Memoria azole 800 9-12 BID, X 7 l MG / 13:43: day, # 14 [place] Trimethopri 00 tab, 0 m 160 MG Refill(s), Oral Tablet [facility] [id number] cefpodoxime 2018-0 No 100 mg = 1 Memoria 100 mg oral 9-12 tab, PO, l tablet 13:43: Q12H, X 7 Garcia n 00 day, # 14 tab, 0 Refill(s), Pharmacy: [facility] Sulfamethox 2018-0 No 1 tab, PO, Memoria azole 800 9-12 BID, X 7 l MG / 13:43: day, # 14 [place] Trimethopri 00 tab, 0 m 160 MG Refill(s), Oral Tablet Pharmacy: [facility] cefpodoxime 2018-0 No 100 mg = 1 Memoria 100 mg oral 9-12 tab, PO, l tablet 13:43: Q12H, X 7 Garcia n 00 day, # 14 tab, 0 Refill(s), Pharmacy: [facility] Sulfamethox 2018-0 No 1 tab, PO, Memoria azole 800 9-12 BID, X 7 l MG / 13:43: day, # 14 [place] Trimethopri 00 tab, 0 m 160 MG Refill(s), Oral Tablet Pharmacy: [[facility]] [facility] cefpodoxime 2018-0 No 100 mg = 1 Memoria 100 mg oral 9-12 tab, PO, l tablet 13:43: Q12H, X 7 Garcia n 00 day, # 14 tab, 0 Refill(s), Pharmacy: [facility] Sulfamethox 2018-0 No 1 tab, PO, Memoria azole 800 9-12 BID, X 7 l MG / 13:43: day, # 14 [place] Trimethopri 00 tab, 0 m 160 MG Refill(s), Oral Tablet Pharmacy: [facility] [id number] cefpodoxime 2018-0 No 100 mg = 1 Memoria 100 mg oral 9-12 tab, PO, l tablet 13:43: Q12H, X 7 Garcia n 00 day, # 14 tab, 0 Refill(s), Pharmacy: [facility] Sulfamethox 2018-0 No 1 tab, PO, Memoria azole 800 9-12 BID, X 7 l MG / 13:43: day, # 14 [place] Trimethopri 00 tab, 0 m 160 MG Refill(s), Oral Tablet Pharmacy: [[facility]] [facility] [id number] Oxycodone 2018-0 No 5 mg, Memoria 01-26 Route: PO, l 08:08: Drug form: [place] 00 TAB, Q4H, Dosing Weight 75, kg, PRN Pain Score 4-6, Start date: 01/26/18 3:08:00 CDT, Duration: 30 day, Stop date: 02/25/18 3:07:00 CDT Labetalol 2018-0 No 10 mg, Memori a 01-26 Route: l 08:08: IVP, Lalit 00 Q5Min, Dosing Weight 75, kg, PRN Elevated BP, Start date: 01/26/18 3:08:00 CDT, Duration: 5 doses or times, Stop date: Limited # of times Promethazin 2018-0 No 6.25 mg, Me moria e 01-26 Route: l 08:08: IVPB, Lalit 00 ONCE, Dosing Weight 75, kg, PRN Nausea & Vomiting, Start date: 01/26/18 3:08:00 CDT Ondansetron 2018-0 No 4 mg, Memor ia 01-26 Route: l 08:08: IVP, ONCE, Lalit 00 Dosing Weight 75, kg, PRN Nausea & Vomiting, Start date: 01/26/18 3:08:00 CDT Hydromorpho 2018-0 No 0.5 mg, Mem oria ne 01-26 Route: l 08:08: IVP, Lalit 00 Q5Min, Dosing Weight 75, kg, PRN [...] day, Stop date: 02/25/18 3:07:00 CDT Naloxone 2018-0 No 0.4 mg, Memori a 01-26 Route: l 08:08: IVP, [place] 00 Q2MIN, Dosing Weight 75, kg, PRN Narcotic Reversal, Start date: 01/26/18 3:08:00 CDT, Duration: 8 doses or times, Stop date: Limited # of times Oxycodone 2018-0 No 5 mg, Memoria 01-26 Route: PO, l 08:08: Drug form: Lalit 00 TAB, Q4H, Dosing Weight 75, kg, PRN Pain Score 4-6, Start date: 01/26/18 3:08:00 CDT, Duration: 30 day, Stop date: 02/25/18 3:07:00 CDT Labetalol 2018-0 No 10 mg, Memori a 01-26 Route: l 08:08: IVP, Lalit 00 Q5Min, Dosing Weight 75, kg, PRN Elevated BP, Start date: 01/26/18 3:08:00 CDT, Duration: 5 doses or times, Stop date: Limited # of times Promethazin 2018-0 No 6.25 mg, Me moria e 01-26 Route: l 08:08: IVPB, [place] 00 ONCE, Dosing Weight 75, kg, PRN Nausea & Vomiting, Start date: 01/26/18 3:08:00 CDT Ondansetron 2018-0 No 4 mg, Memor ia 01-26 Route: l 08:08: IVP, ONCE, Lalit 00 Dosing Weight 75, kg, PRN Nausea & Vomiting, Start date: 01/26/18 3:08:00 CDT Hydromorpho 2018-0 No 0.5 mg, Mem oria ne 01-26 Route: l 08:08: IVP, Lalit 00 Q5Min, Dosing Weight 75, kg, PRN Pain Score 7-10, Start date: 01/26/18 3:08:00 CDT, Duration: 4 doses or times, Stop date: Limited # of times Flumazenil 2018-0 No 0.2 mg, Aj mary 01-26 Route: l 08:08: IVP, PRN, [place] 00 Dosing Weight 75, kg, PRN Benzodiaze pine Reversal, Initial dose, Start date: 01/26/18 3:08:00 CDT, Duration: 30 day, Stop date: 02/25/18 3:07:00 CDT Oxycodone 2018-0 No 5 mg, Memoria 01-26 Route: PO, l 08:08: Drug form: [place] 00 TAB, Q4H, Dosing Weight 75, kg, PRN Pain Score 4-6, Start date: 01/26/18 3:08:00 CDT, Duration: 30 day, Stop date: 02/25/18 3:07:00 CDT Naloxone 2018-0 No 0.4 mg, Memori a 01-26 Route: l 08:08: IVP, [place] 00 Q2MIN, Dosing Weight 75, kg, PRN Narcotic Reversal, Start date: 01/26/18 3:08:00 CDT, Duration: 8 doses or times, Stop date: Limited # of times Labetalol 2018-0 No 10 mg, Memori a 01-26 Route: l 08:08: IVP, [place] 00 Q5Min, Dosing Weight 75, kg, PRN Elevated BP, Start date: 01/26/18 3:08:00 CDT, Duration: 5 doses or times, Stop date: Limited # of times Promethazin 2018-0 No 6.25 mg, Me moria e 01-26 Route: l 08:08: IVPB, Lalit 00 ONCE, Dosing Weight 75, kg, PRN Nausea & Vomiting, Start date: 01/26/18 3:08:00 CDT Ondansetron 2018-0 No 4 mg, Memor ia 01-26 Route: l 08:08: IVP, ONCE, Lalit 00 Dosing Weight 75, kg, PRN Nausea & Vomiting, Start date: 01/26/18 3:08:00 CDT Hydromorpho 2018-0 No 0.5 mg, Mem oria ne 01-26 Route: l 08:08: IVP, Lalit 00 Q5Min, Dosing Weight 75, kg, PRN Pain Score 7-10, Start date: 01/26/18 3:08:00 CDT, Duration: 4 doses or times, Stop date: Limited # of times Flumazenil 2018-0 No 0.2 mg, Aj mary 01-26 Route: l 08:08: IVP, PRN, [place] 00 Dosing Weight 75, kg, PRN Benzodiaze pine Reversal, Initial dose, Start date: 01/26/18 3:08:00 CDT, Duration: 30 day, Stop date: 02/25/18 3:07:00 CDT Naloxone 2018-0 No 0.4 mg, Memori a 01-26 Route: l 08:08: IVP, Lalit 00 Q2MIN, Dosing Weight 75, kg, PRN Narcotic Reversal, Start date: 01/26/18 3:08:00 CDT, Duration: 8 doses or times, Stop date: Limited # of times Oxycodone 2018-0 No 5 mg, Memoria 01-26 Route: PO, l 08:08: Drug form: Lalit 00 TAB, Q4H, Dosing Weight 75, kg, PRN Pain Score 4-6, Start date: 01/26/18 3:08:00 CDT, Duration: 30 day, Stop date: 02/25/18 3:07:00 CDT Labetalol 2018-0 No 10 mg, Memori a 01-26 Route: l 08:08: IVP, [place] 00 Q5Min, Dosing Weight 75, kg, PRN Elevated BP, Start date: 01/26/18 3:08:00 CDT, Duration: 5 doses or times, Stop date: Limited # of times Promethazin 2018-0 No 6.25 mg, Me moria e 01-26 Route: l 08:08: IVPB, [place] 00 ONCE, Dosing Weight 75, kg, PRN Nausea & Vomiting, Start date: 01/26/18 3:08:00 CDT Ondansetron 2018-0 No 4 mg, Memor ia 01-26 Route: l 08:08: IVP, ONCE, Lalit 00 Dosing Weight 75, kg, PRN Nausea & Vomiting, Start date: 01/26/18 3:08:00 CDT Hydromorpho 2018-0 No 0.5 mg, Mem oria ne 01-26 Route: l 08:08: IVP, Lalit 00 Q5Min, Dosing Weight 75, kg, PRN [...] day, Stop date: 02/25/18 3:07:00 CDT Naloxone 2018-0 No 0.4 mg, Memori a 01-26 Route: l 08:08: IVP, Lalit 00 Q2MIN, Dosing Weight 75, kg, PRN Narcotic Reversal, Start date: 01/26/18 3:08:00 CDT, Duration: 8 doses or times, Stop date: Limited # of times Oxycodone 2018-0 No 5 mg, Memoria 01-26 Route: PO, l 08:08: Drug form: [place] 00 TAB, Q4H, Dosing Weight 75, kg, PRN Pain Score 4-6, Start date: 01/26/18 3:08:00 CDT, Duration: 30 day, Stop date: 02/25/18 3:07:00 CDT Labetalol 2018-0 No 10 mg, Memori a 01-26 Route: l 08:08: IVP, Lalit 00 Q5Min, Dosing Weight 75, kg, PRN Elevated BP, Start date: 01/26/18 3:08:00 CDT, Duration: 5 doses or times, Stop date: Limited # of times Promethazin 2018-0 No 6.25 mg, Me moria e 01-26 Route: l 08:08: IVPB, [place] 00 ONCE, Dosing Weight 75, kg, PRN Nausea & Vomiting, Start date: 01/26/18 3:08:00 CDT Ondansetron 2018-0 No 4 mg, Memor ia 01-26 Route: l 08:08: IVP, ONCE, Lalit 00 Dosing Weight 75, kg, PRN Nausea & Vomiting, Start date: 01/26/18 3:08:00 CDT Hydromorpho 2018-0 No 0.5 mg, Mem oria ne 01-26 Route: l 08:08: IVP, [place] 00 Q5Min, Dosing Weight 75, kg, PRN [...] day, Stop date: 02/25/18 3:07:00 CDT Naloxone No 0.4 mg, Memori a 01-26 Route: l 08:08: IVP, [place] 00 Q2MIN, Dosing Weight 75, kg, PRN Narcotic Reversal, Start date: 01/26/18 3:08:00 CDT, Duration: 8 doses or times, Stop date: Limited # of times Ancef No Notes: Memoria 01-26 (Same As: l 07:00: Ancef, [place] Kefzol) MEDICATION WASTE Product Size: 1000 mg Product Wasted: ___ mg Ancef 0 No Notes: Memoria 01-26 (Same As: l 07:00: Ancef, [place] Kefzol) MEDICATION WASTE Product Size: 1000 mg Product Wasted: ___ mg Ancef 0 No Notes: Memoria 01-26 (Same As: l 07:00: Ancef, Lalit 00 Kefzol) MEDICATION WASTE Product Size: 1000 mg Product Wasted: ___ mg Ancef 0 No Notes: Memoria 01-26 (Same As: l 07:00: Ancef, Lalit 00 Kefzol) MEDICATION WASTE Product Size: 1000 mg Product Wasted: ___ mg Ancef 0 No Notes: Memoria 01-26 (Same As: l 07:00: Ancef, [place] 00 Kefzol) MEDICATION WASTE Product Size: 1000 mg Product Wasted: ___ mg Lisinopril 0 No Notes: Memor ia 01-26 (Same as: l 05:56: Prinivil, [place] 00 Zestril) Lisinopril 2017-0 No Notes: Memor ia 01-26 (Same as: l 05:56: Prinivil, Lalit Zestril) Lisinopril No Notes: Memor ia 01-26 (Same as: l 05:56: Prinivil, [place] 00 Zestril) Lisinopril No Notes: Memor ia 01-26 (Same as: l 05:56: Prinivil, [place] 00 Zestril) Lisinopril No Notes: Memor ia 01-26 (Same as: l 05:56: Prinivil, [place] 00 Zestril) tramadol No Notes: Not Mem oria hydrochlori 01-26 to exceed l de 50 MG 05:55: 400mg/day. Her biswas Oral Tablet 00 (Same As: Ultram) tramadol No Notes: Not Mem oria hydrochlori 01-26 to exceed l de 50 MG 05:55: 400mg/day. Her biswas Oral Tablet 00 (Same As: Ultram) tramadol No Notes: Not Mem oria hydrochlori 01-26 to exceed l de 50 MG 05:55: 400mg/day. Her biswas Oral Tablet 00 (Same As: Ultram) tramadol No Notes: Not Mem oria hydrochlori 01-26 to exceed l de 50 MG 05:55: 400mg/day. Her biswas Oral Tablet 00 (Same As: Ultram) tramadol No Notes: Not Mem oria hydrochlori 01-26 to exceed l de 50 MG 05:55: 400mg/day. Her biswas Oral Tablet 00 (Same As: Ultram) Acetaminoph No Notes: Do M emoria en 01-26 not exceed l 05:54: 4 gm/day. [place] 00 (Same as: Tylenol) Saline No Notes: Memoria Flush 0.9% 01-26 (Same as: l 05:54: BD Lalit 00 Posiflush) Sodium No 1,000 mL, Memori a Chloride 01-26 Rate: 100 l 0.9% IV 05:54: ml/hr, [place] 1,000 mL 00 Infuse over: 10 hr, Route: IV, Dosing Weight 75 kg, Total Volume: 1,000, Start date: 01/26/18 0:54:00 CDT, Duration: 30 day, Stop date: 02/25/18 0:53:00 CDT, 1.89, m2 Docusate No Notes: Memoria 9-12 (Same as: l 05:54: Colace) Lalit (Do Not Crush) Ondansetron No Notes: Aj mary 01-26 (Same as: l 05:54: Zofran) [place] 00 MEDICATION WASTE Product Size: 4 mg Product Wasted: ___ mg Acetaminoph No Notes: Do M emoria en 01-26 not exceed l 05:54: 4 gm/day. [place] 00 (Same as: Tylenol) Saline No Notes: Memoria Flush 0.9% 12 (Same as: l 05:54: BD [place] 00 Posiflush) Sodium No 1,000 mL, Memori a Chloride 12 Rate: 100 l 0.9% IV 05:54: ml/hr, [place] 1,000 mL 00 Infuse over: 10 hr, Route: IV, Dosing Weight 75 kg, Total Volume: 1,000, Start date: 01/26/18 0:54:00 CDT, Duration: 30 day, Stop date: 02/25/18 0:53:00 CDT, 1.89, m2 Docusate No Notes: Memoria - (Same as: l 05:54: Colace) [place] (Do Not Crush) Ondansetron No Notes: Aj mary 01-26 (Same as: l 05:54: Zofran) Lalit 00 MEDICATION WASTE Product Size: 4 mg Product Wasted: ___ mg Acetaminoph No Notes: Do M emoria en 01-26 not exceed l 05:54: 4 gm/day. [place] 00 (Same as: Tylenol) Saline No Notes: Memoria Flush 0.9% 12 (Same as: l 05:54: BD [place] 00 Posiflush) Acetaminoph No Notes: Do M emoria en 01-26 not exceed l 05:54: 4 gm/day. [place] 00 (Same as: Tylenol) Sodium No 1,000 mL, Memori a Chloride 912 Rate: 100 l 0.9% IV 05:54: ml/hr, Lalit 1,000 mL 00 Infuse over: 10 hr, Route: IV, Dosing Weight 75 kg, Total Volume: 1,000, Start date: 01/26/18 0:54:00 CDT, Duration: 30 day, Stop date: 02/25/18 0:53:00 CDT, 1.89, m2 Docusate No Notes: Memoria - (Same as: l 05:54: Colace) [place] 00 (Do Not Crush) Ondansetron No Notes: Aj mary 01-26 (Same as: l 05:54: Zofran) [place] 00 MEDICATION WASTE Product Size: 4 mg Product Wasted: ___ mg Saline No Notes: Memoria Flush 0.9% 01-26 (Same as: l 05:54: BD [place] 00 Posiflush) Sodium No 1,000 mL, Memori a Chloride 01-26 Rate: 100 l 0.9% IV 05:54: ml/hr, [place] 1,000 mL 00 Infuse over: 10 hr, Route: IV, Dosing Weight 75 kg, Total Volume: 1,000, Start date: 01/26/18 0:54:00 CDT, Duration: 30 day, Stop date: 02/25/18 0:53:00 CDT, 1.89, m2 Docusate No Notes: Memoria 01-26 (Same as: l 05:54: Colace) [place] 00 (Do Not Crush) Ondansetron No Notes: Aj mary 01-26 (Same as: l 05:54: Zofran) [place] 00 MEDICATION WASTE Product Size: 4 mg Product Wasted: ___ mg Acetaminoph No Notes: Do M emoria en 01-26 not exceed l 05:54: 4 gm/day. Lalit 00 (Same as: Tylenol) Saline No Notes: Memoria Flush 0.9% 01-26 (Same as: l 05:54: BD Lalit 00 Posiflush) Sodium No 1,000 mL, Memori a Chloride 9-12 Rate: 100 l 0.9% IV 05:54: ml/hr, Lalit 1,000 mL 00 Infuse over: 10 hr, Route: IV, Dosing Weight 75 kg, Total Volume: 1,000, Start date: 01/26/18 0:54:00 CDT, Duration: 30 day, Stop date: 02/25/18 0:53:00 CDT, 1.89, m2 Docusate No Notes: Memoria 01-26 (Same as: l 05:54: Colace) Lalit 00 (Do Not Crush) Ondansetron No Notes: Aj mary 01-26 (Same as: l 05:54: Zofran) Lalit 00 MEDICATION WASTE Product Size: 4 mg Product Wasted: ___ mg Gentamicin No Notes: Memor ia 01-26 TIME l 04:45: CRITICAL Lalit 00 MEDICATION (Same as Garamycin) For adult patients only: Round to nearest 10 mg per Medical Staff approval Gentamicin No Notes: Memor ia 01-26 TIME l 04:45: CRITICAL Lalit 00 MEDICATION (Same as Garamycin) For adult patients only: Round to nearest 10 mg per Medical Staff approval Gentamicin No Notes: Memor ia 01-26 TIME l 04:45: CRITICAL [place] 00 MEDICATION (Same as Garamycin) For adult patients only: Round to nearest 10 mg per Medical Staff approval Gentamicin No Notes: Memor ia 01-26 TIME l 04:45: CRITICAL [place] 00 MEDICATION (Same as Garamycin) For adult patients only: Round to nearest 10 mg per Medical Staff approval Gentamicin No Notes: Memor ia 01-26 TIME l 04:45: CRITICAL [place] 00 MEDICATION (Same as Garamycin) For adult patients only: Round to nearest 10 mg per Medical Staff approval Morphine No 4 mg, Memoria 01-26 Route: l 04:14: IVP, ONCE, Lalit 00 Dosing Weight 75, kg, Priority: STAT, Start date: 01/25/18 23:14:00 CDT, Stop date: 01/25/18 23:14:00 CDT Zofran No 4 mg, Memoria 01-26 Route: l 04:14: IVP, Drug [place] form: INJ, ONCE, Dosing Weight 75, kg, Priority: STAT, Start date: 01/25/18 23:14:00 CDT, Stop date: 01/25/18 23:14:00 CDT Morphine 2018-0 No 4 mg, Memoria 9-12 Route: l 04:14: IVP, ONCE, Lalit 00 Dosing Weight 75, kg, Priority: STAT, Start date: 01/25/18 23:14:00 CDT, Stop date: 01/25/18 23:14:00 CDT Zofran 2018-0 No 4 mg, Memoria 9-12 Route: l 04:14: IVP, Drug [place] 00 form: INJ, ONCE, Dosing Weight 75, kg, Priority: STAT, Start date: 01/25/18 23:14:00 CDT, Stop date: 01/25/18 23:14:00 CDT Morphine 2018-0 No 4 mg, Memoria 9-12 Route: l 04:14: IVP, ONCE, Lalit 00 Dosing Weight 75, kg, Priority: STAT, Start date: 01/25/18 23:14:00 CDT, Stop date: 01/25/18 23:14:00 CDT Zofran 2018-0 No 4 mg, Memoria 9-12 Route: l 04:14: IVP, Drug Lalit 00 form: INJ, ONCE, Dosing Weight 75, kg, Priority: STAT, Start date: 01/25/18 23:14:00 CDT, Stop date: 01/25/18 23:14:00 CDT Morphine 2018-0 No 4 mg, Memoria 9-12 Route: l 04:14: IVP, ONCE, [place] 00 Dosing Weight 75, kg, Priority: STAT, Start date: 01/25/18 23:14:00 CDT, Stop date: 01/25/18 23:14:00 CDT Zofran 2018-0 No 4 mg, Memoria 9-12 Route: l 04:14: IVP, Drug [place] 00 form: INJ, ONCE, Dosing Weight 75, kg, Priority: STAT, Start date: 01/25/18 23:14:00 CDT, Stop date: 01/25/18 23:14:00 CDT Morphine 2018-0 No 4 mg, Memoria 9-12 Route: l 04:14: IVP, ONCE, [place] 00 Dosing Weight 75, kg, Priority: STAT, Start date: 01/25/18 23:14:00 CDT, Stop date: 01/25/18 23:14:00 CDT Zofran 2018-0 No 4 mg, Memoria 9-12 Route: l 04:14: IVP, Drug form: INJ, ONCE, Dosing Weight 75, kg, Priority: STAT, Start date: 01/25/18 23:14:00 CDT, Stop date: 01/25/18 23:14:00 CDT Fentanyl 2018-0 No 50 Memoria 9-12 microgram, l 02:53: Route: IVP, ONCE, Dosing Weight 75, kg, Priority: STAT, Start date: 01/25/18 21:53:00 CDT, Stop date: 01/25/18 21:53:00 CDT Fentanyl 2018-0 No 50 Memoria 9-12 microgram, l 02:53: Route: IVP, ONCE, Dosing Weight 75, kg, Priority: STAT, Start date: 01/25/18 21:53:00 CDT, Stop date: 01/25/18 21:53:00 CDT Fentanyl 2018-0 No 50 Memoria 9-12 microgram, l 02:53: Route: IVP, ONCE, Dosing Weight 75, kg, Priority: STAT, Start date: 01/25/18 21:53:00 CDT, Stop date: 01/25/18 21:53:00 CDT Fentanyl 2018-0 No 50 Memoria 9-12 microgram, l 02:53: Route: IVP, ONCE, Dosing Weight 75, kg, Priority: STAT, Start date: 01/25/18 21:53:00 CDT, Stop date: 01/25/18 21:53:00 CDT Fentanyl 2018-0 No 50 Memoria 9-12 microgram, l 02:53: Route: IVP, ONCE, Dosing Weight 75, kg, Priority: STAT, Start date: 01/25/18 21:53:00 CDT, Stop date: 01/25/18 21:53:00 CDT methylPREDN 2014- Yes 84mg Take 21 Uni vers ISolone 2-28 Tabs by ity of (MEDROL, 00:00: mouth [place] ERICH,) 4 mg 00 SEE-INSTRU Med ical tablets CTIONS. Branch follow package directions diclofenac 2014-05 Yes 75mg Take 1 Tab U nivers (VOLTAREN) 2-28 by mouth 2 ity of 75 mg EC 00:00: (two) [place] tablet 00 times Medical daily with Branch meals. methylPREDN 2014-05 Yes 84mg Take 21 Uni vers ISolone 2-28 Tabs by ity of (MEDROL, 00:00: mouth [place] ERICH,) 4 mg 00 SEE-INSTRU Med ical tablets CTIONS. Branch follow package directions methylPREDN 2014-05 Yes 84mg Take 21 Uni vers ISolone 2-28 Tabs by ity of (MEDROL, 00:00: mouth [place] ERICH,) 4 mg 00 SEE-INSTRU Med ical tablets CTIONS. Branch follow package directions methylPREDN 2014-05 Yes 84mg Take 21 Uni vers ISolone 2-28 Tabs by ity of (MEDROL, 00:00: mouth [place] ERICH,) 4 mg 00 SEE-INSTRU Med ical tablets CTIONS. Branch follow package directions methylPREDN 2014-05 Yes 84mg Take 21 Uni vers ISolone 2-28 Tabs by ity of (MEDROL, 00:00: mouth [place] ERICH,) 4 mg 00 SEE-INSTRU Med ical tablets CTIONS. Branch follow package directions methylPREDN 2014-05 Yes 84mg Take 21 Uni vers ISolone 2-28 Tabs by ity of (MEDROL, 00:00: mouth [place] ERICH,) 4 mg 00 SEE-INSTRU Med ical tablets CTIONS. Branch follow package directions diclofenac 2014-05 Yes 75mg Take 1 Tab U nivers (VOLTAREN) 2-28 by mouth 2 ity of 75 mg EC 00:00: (two) [place] tablet 00 times Medical daily with Branch meals. methylPREDN 2014-05 Yes 84mg Take 21 Uni vers ISolone 2-28 Tabs by ity of (MEDROL, 00:00: mouth [place] ERICH,) 4 mg 00 SEE-INSTRU Med ical tablets CTIONS. Branch follow package directions methylPREDN 2014-05 Yes 84mg Take 21 Uni vers ISolone 2-28 Tabs by ity of (MEDROL, 00:00: mouth [place] ERICH,) 4 mg 00 SEE-INSTRU Med ical tablets CTIONS. Branch follow package directions diclofenac 2014-05 Yes 75mg Take 1 Tab U nivers (VOLTAREN) 2-28 by mouth 2 ity of 75 mg EC 00:00: (two) [place] tablet 00 times Medical daily with Branch meals. methylPREDN 2014-05 Yes 84mg Take 21 Uni vers ISolone 2-28 Tabs by ity of (MEDROL, 00:00: mouth [place] ERICH,) 4 mg 00 SEE-INSTRU Med ical tablets CTIONS. Branch follow package directions diclofenac 2014-05 Yes 75mg Take 1 Tab U nivers (VOLTAREN) 2-28 by mouth 2 ity of 75 mg EC 00:00: (two) [place] tablet 00 times Medical daily with Branch meals. methylPREDN 2014-05 Yes 84mg Take 21 Uni vers ISolone 2-28 Tabs by ity of (MEDROL, 00:00: mouth [place] ERICH,) 4 mg 00 SEE-INSTRU Med ical tablets CTIONS. Branch follow package directions diclofenac 2014-05 Yes 75mg Take 1 Tab U nivers (VOLTAREN) 2-28 by mouth 2 ity of 75 mg EC 00:00: (two) [place] tablet 00 times Medical daily with Branch meals. methylPREDN 2014-05 Yes 84mg Take 21 Uni vers ISolone 2-28 Tabs by ity of (MEDROL, 00:00: mouth [place] ERICH,) 4 mg 00 SEE-INSTRU Med ical tablets CTIONS. Branch follow package directions diclofenac 2014-05 Yes 75mg Take 1 Tab U nivers (VOLTAREN) 2-28 by mouth 2 ity of 75 mg EC 00:00: (two) [place] tablet 00 times Medical daily with Branch meals. methylPREDN 2014-05 Yes 84mg Take 21 Uni vers ISolone 2-28 Tabs by ity of (MEDROL, 00:00: mouth [place] ERICH,) 4 mg 00 SEE-INSTRU Med ical tablets CTIONS. Branch follow package directions diclofenac 2014-05 Yes 75mg Take 1 Tab U nivers (VOLTAREN) 2-28 by mouth 2 ity of 75 mg EC 00:00: (two) [place] tablet 00 times Medical daily with Branch meals. methylPREDN 2014-05 Yes 84mg Take 21 Uni vers ISolone 2-28 Tabs by ity of (MEDROL, 00:00: mouth [place] ERICH,) 4 mg 00 SEE-INSTRU Med ical tablets CTIONS. Branch follow package directions diclofenac 2014-05 Yes 75mg Take 1 Tab U nivers (VOLTAREN) 2-28 by mouth 2 ity of 75 mg EC 00:00: (two) [place] tablet 00 times Medical daily with Branch meals. methylPREDN 2014-05 Yes 84mg Take 21 Uni vers ISolone 2-28 Tabs by ity of (MEDROL, 00:00: mouth [place] ERICH,) 4 mg 00 SEE-INSTRU Med ical tablets CTIONS. Branch follow package directions diclofenac 2014-05 Yes 75mg Take 1 Tab U nivers (VOLTAREN) 2-28 by mouth 2 ity of 75 mg EC 00:00: (two) [place] tablet 00 times Medical daily with Branch meals. diclofenac 2014-05 No 75mg Take 1 Tab Univers (VOLTAREN) 2-28 -15 by mouth 2 it y of 75 mg EC 00:00: 00:00 (two) [place] tablet 00 :00 times Medical daily with Branch meals. diclofenac 2014-05 No 75mg Take 1 Tab Univers (VOLTAREN) 2-28 01-29 by mouth 2 it y of 75 mg EC 00:00: 00:00 (two) [place] tablet 00 :00 times Medical daily with Branch meals. Vital Signs Vital Name Observation Time Observation Value Comments Source Systolic blood 2023-03-19 15:17:00 187 mm[Hg[facility] 2023-03-19 15:17:00 103 mm[Hg] Unive rsity of [facility] Heart rate 2023-03-19 15:16:00 75 /min [facility] Body height 2023-03-19 15:16:00 165.1 cm [facility] Body weight 2023-03-19 15:16:00 69.219 kg [facility] BMI 2023-03-19 15:16:00 25.39 kg/m2 [facility] Oxygen saturation in 2023-03-19 15:16:00 99 /min [facility] Arterial blood by [facility] Pulse oximetry Branch Systolic blood 2023-01-29 15:37:00 168 mm[Hg] Univer sity [facility] Diastolic blood 2023-01-29 15:37:00 92 mm[Hg] Unive rsity of pressure [facility] Heart rate 2023-01-29 15:37:00 67 /min [facility] Body height 2023-01-29 15:37:00 165.1 cm [facility] Body weight 2023-01-29 15:37:00 69.037 kg [facility] BMI 2023-01-29 15:37:00 25.33 kg/m2 [facility] BMI 2022-10-16 13:37:00 22.91 kg/m2 [facility] Body weight 2022-10-16 13:37:00 68.357 kg [facility] Systolic blood 2020-10-10 18:59:00 183 mm[Hg] Univer sity of pressure [facility] Diastolic blood 2020-10-10 18:59:00 106 mm[Hg] Unive rsity of pressure [facility] Heart rate 2020-10-10 18:59:00 89 /min [facility] Body height 2020-10-10 18:51:00 172.7 cm [facility] Body weight 2020-10-10 18:51:00 74.844 kg [facility] BMI 2020-10-10 18:51:00 25.09 kg/m2 [facility] Systolic blood 2020-04-26 17:09:00 160 mm[Hg] Univer sity of pressure [facility] Diastolic blood 2020-04-26 17:09:00 113 mm[Hg] Unive rsity of pressure [facility] Heart rate 2020-04-26 17:09:00 93 /min [facility] Body height 2020-04-26 17:07:00 172.7 cm [facility] Body weight 2020-04-26 17:07:00 74.844 kg [facility] BMI 2020-04-26 17:07:00 25.09 kg/m2 Universi ty of [facility] Branch Heart Rate 2018-01-26 17:08:00 [facility] [place] [facility] Temperature Oral (F) 2018-01-26 17:08:00 98.0 F [facility] [place] [facility] Systolic (mm Hg) 2018-01-26 17:08:00 Aj rial Lalit Diastolic (mm Hg) 2018-01-26 17:08:00 Mem orial [place] Respitory Rate 2018-01-26 17:08:00 Memori al [place] Systolic (mm Hg) 2018-01-26 12:58:00 Aj rial [place] Diastolic (mm Hg) 2018-01-26 12:58:00 Mem orial [place] Heart Rate 2018-01-26 12:58:00 [facility] [place] Respitory Rate 2018-01-26 12:58:00 Memori al Lalit Temperature Oral (F) 2018-01-26 12:58:00 97.8 F [facility] [place] Respitory Rate 2018-01-26 09:59:00 Memori al Lalit Temperature Oral (F) 2018-01-26 09:59:00 98 F [facility] [place] Heart Rate 2018-01-26 09:59:00 [facility] [place] Systolic (mm Hg) 2018-01-26 09:59:00 Aj rial Lalit Diastolic (mm Hg) 2018-01-26 09:59:00 Mem orial Lalit BMI Calculated 2018-01-26 09:56:00 Memori al [place] Weight 2018-01-26 09:56:00 [facility] [place] Height 2018-01-26 09:56:00 530 cm [facility] Weight 2018-01-26 02:37:00 [facility] [place] Height 2018-01-26 02:37:00 167.64 cm [facility] BMI Calculated 2018-01-26 02:37:00 Memori al [place] Procedures Procedure Date / Time Performed Performing Clinician [facility] e XR KNEE 3 VW RIGHT 2023-01-29 16:19:09 Titus Borja [facility] ASSIGNMENT OF BENEFITS 2022-10-16 13:26:15 Doctor Unassigned, No [facility] Branch XR KNEE 3 VW RIGHT 2020-04-26 17:21:12 Flower Gutierrez [facility] Plastic repair of 2018-01-26 05:00:00 [facility] ermann tendon Encounters Start End Encounter Admission Attending Care Care Encounter Source Date/Time Date/Time Type Type Clinicians Facility Department ID 2023-03-26 2023-03-26 Outpatient R FLOWER GUTIERREZ [facility] [id number] [facility] 10:00:00 10:00:00 FLOWER GUTIERREZ [facility] 2023-03-19 2023-03-19 Outpatient R FLOWER GUTIERREZ [facility] [id number] Univers 10:15:00 10:25:12 FLOWER GUTIERREZ [facility] 2023-03-19 2023-03-19 [facility] [id number] Univers 10:15:00 10:25:12 Visit Flower [facility] [id number] it y of [place] [id number] Khurram as YANNA?BLEA [id number] [place] alexisria CAICEDO [address] [facility] OFFICE [facility] 2023-03-12 2023-03-12 [facility] [id number] Univers 10:45:00 10:45:[facility] 2023-01-29 2023-01-29 [facility] [id number] Univers 11:12:27 23:59:00 TITUS [facility] 2023-01-29 2023-01-29 [facility] [id number] Univers 11:12:27 23:59:00 Encounter [facility] HEALTH [id number] ity of [place] [id number] Khurram as YANNA?BLEA [id number] Va alexisria CAICEDO [facility] 2023-01-29 2023-01-29 Office [facility] [id number] Univers 11:15:00 11:30:00 Visit Titus S HEALTH [id number] it y of [place] [id number] Khurram as YANNA?BLEA [id number] [place] alexisria CAICEDO [address] [facility] OFFICE [facility] 2023-01-28 2023-01-28 Outpatient Sam BORJA [facility] [id number] Univers 10:15:00 10:15:00 TITUS [facility] 2022-10-16 2022-10-16 Outpatient Sam BORJA [facility] [id number] Univers 08:50:00 23:59:00 TITUS [facility] 2022-10-16 2022-10-16 Office [facility] [id number] Univers 08:30:00 09:49:52 Visit [facility] [id number] it y of [place] [id number] Khurram as YANNA?BLEA [id number] Va dical [facility] [address] [facility] 2022-10-16 2022-10-16 Orders Doctor JONO [id number] Univers 00:00:00 00:00:00 Only Unassigned, VEENA [id number] ity of [place] [facility] [id number] Khurram as [id number] [address] 2022-03-24 2022-03-24 Outpatient [facility] [id number] Univers 13:30:00 13:30:00 [facility] 2021-01-09 2021-01-09 Outpatient Sam BORJA [facility] [id number] Univers 13:00:00 13:00:00 TITUS [facility] 2020-10-10 2020-10-10 Office [facility] [id number] Univers 13:44:16 14:42:21 Visit [facility] [id number] it y of Surgical [id number] Khurram as Specialti [phone] Va dical es [address] [facility] 2020-10-10 2020-10-10 Outpatient [facility] [id number] Univers 13:45:00 13:45:00 TITUS ity [facility] 2020-04-26 2020-04-26 [facility] [id number] Univers 11:21:11 23:59:00 Encounter Flower Nunez [facility] [id number] ity of Surgical [id number] Khurram as Specialti [id number] Va dical es 809 [facility] 2020-04-26 2020-04-26 Office [facility] [id number] Univers 11:00:35 11:15:35 Visit [facility] [id number] it y of Surgical [id number] Khurram as Specialti [id number] Va dical es 198 [facility] 2020-04-26 2020-04-26 Outpatient R JONH [facility] [id number] Univers 11:15:00 11:15:00 [facility] 2019-08-09 2019-08-09 [facility] [id number] 08:06:08 08:21:08 ne Visit [facility] [id number] Surgical [id number] Specialti [id number] es [address] [place] 2019-08-09 2019-08-09 [facility] [id number] Univers 08:06:08 08:21:08 ne Visit [facility] [id number] i ty of Surgical [id number] Khurram as Specialti [id number] Va dical es 198 [facility] 2018-02-10 2018-03-12 OP Therapy nullFlavo [facility] [id number] Memoria 20:00:00 04:59:00 Patients r Gertrudis Cohn 2018-02-10 2018-03-12 OP Therapy nullFlavo [facility] [id number] Memoria 20:00:00 04:59:00 Patients r Gertrudis Cohn 2018-02-10 2018-03-11 Outpatient Deysi [id number] 15:00:00 23:59:00 Ernie Galloway [id number] 2018-02-10 2018-02-10 [facility] [id number] [place] 14:00:00 14:00:00 t; Sabas KLEIN ans KYLE, M.D. 2018-02-04 2018-02-04 GRETCHEN Dexter UTP [id number] [place] 12:00:00 12:00:00 t; ERNIESabas ans KYLE, M.D. 2018-01-26 2018-01-26 Observatio nullFlavo [facility] [id number] Memoria 02:33:00 19:06:00 n [facility] 54 [facility] 2018-01-26 2018-01-26 Observatio nullFlavo [place] [id number] Memoria 02:33:00 19:06:00 n [facility] 54 [facility] 2018-01-25 2018-01-26 [facility] [id number] 21:33:00 14:06:00 Giselle 54 Cory Results Test Description Test Time Test Comments Results Result Sourc e Comments XR KNEE 3 2020-04-16 Rvbb-kc-ctpn University of RIGHT 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[facility] 17: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 is also eapv-iu-ujun in the joint line on the lateral view with patellar osteophytes CHEM PANEL 2018-01-26 10:48:00 Test Item Value Reference Range Interpretation Comme nts eGFR (test code = eGFR) 62 [facility]2018-09-12 10:48:00 Test Item Value Reference Range Interpretation Comments Potassium Lvl (test code = Potassium 4.1 3.5-5.1 Lvl) [facility]2018-09-12 10:48:00 Test Item Value Reference Range Interpretation Comments Sodium Lvl (test code = Sodium Lvl) 141 135-145 [facility]2018-09-12 10:48:00 Test Item Value Reference Range Interpretation Comments Creatinine Lvl (test code = Creatinine 1.26 0.50-1.40 Lvl) [facility]2018-09-12 10:48:00 Test Item Value Reference Range Interpretation Comments BUN (test code = BUN) 13 7-22 [facility]2018-09-12 10:48:00 Test Item Value Reference Range Interpretation Comments Glucose Lvl (test code = Glucose Lvl) 309 70-99 [facility]2018-09-12 10:48:00 Test Item Value Reference Range Interpretation Comments CO2 (test code = CO2) 20 24-32 [facility]2018-09-12 10:48:00 Test Item Value Reference Range Interpretation Comments AGAP (test code = AGAP) 19.1 10.0-20.0 [facility]2018-09-12 10:48:00 Test Item Value Reference Range Interpretation Comments Chloride Lvl (test code = Chloride Lvl) 106 95-109 [facility]2018-09-12 10:48:00 Test Item Value Reference Range Interpretation Comments Calcium Lvl (test code = Calcium Lvl) 8.2 8.5-10.5 [facility]QizcpcrLBYFNYOMUT7565-00-45 10:48:00 Test Item Value Reference Range Interpretation Comments MPV (test code = MPV) 12.5 7.4-10.4 [facility] CenterSrjjhigXFGENKHFYG6046-56-11 10:48:00 Test Item Value Reference Range Interpretation Comments Platelet (test code = Platelet) 168 133-450 [facility] CenterXeocxtiRQRXENWIFX5677-56-92 10:48:00 Test Item Value Reference Range Interpretation Comments MCV (test code = MCV) 92.8 80.0-94.0 [facility] CenterOqdivofMQAMIAESAN3723-06-28 10:48:00 Test Item Value Reference Range Interpretation Comments Hct (test code = Hct) 40.4 42.0-54.0 [facility] CenterFfpwkmoHUMGVYLOOK1450-40-31 10:48:00 Test Item Value Reference Range Interpretation Comments Hgb (test code = Hgb) 13.5 14.0-18.0 [facility] CenterHydgdzoTFXJLHTSRK3941-71-29 10:48:00 Test Item Value Reference Range Interpretation Comments RBC (test code = RBC) 4.35 4.70-6.10 [facility] CenterVyvqqcuLJGYWZUPQV7937-95-36 10:48:00 Test Item Value Reference Range Interpretation Comments WBC (test code = WBC) 14.6 3.7-10.4 [facility] CenterFufxscvHMGKHOUQSF9606-30-18 10:48:00 Test Item Value Reference Range Interpretation Comments RDW (test code = RDW) 13.4 11.5-14.5 [facility] CenterNlttewtAPPICJXFQQ4247-62-49 10:48:00 Test Item Value Reference Range Interpretation Comments MCHC (test code = MCHC) 33.4 32.0-36.0 [facility] CenterQypkwujSPCEZJLBYM4287-50-61 10:48:00 Test Item Value Reference Range Interpretation Comments MCH (test code = MCH) 31.0 pg 27.0-31.0 [facility] CenterDizojlyXBCPHVJJFM5303-89-24 10:48:00 Test Item Value Reference Range Interpretation Comments Basophils # (test code 0.1 See_Comment [Aut omated message] The = Basophils #) system which generated this result tra nsmitted reference range : <=0.2. The reference r nicki was not used to int erpret this result as normal/abnormal . [facility] Cent[id number] 10:48:00 Test Item Value Reference Range Interpretation Comments Eosinophils (test code = 0.1 See_Comment [A utomated message] The Eosinophils) system which ge nerated this result tra nsmitted reference range : <=4.0. The reference r nicki was not used to int erpret this result as normal/abnormal . [facility] CenterMkcyxipNDVEYPYSQE5471-94-54 10:48:00 Test Item Value Reference Range Interpretation Comments Lymphocytes (test code = Lymphocytes) 6.5 20.0-40.0 [facility] CenterX[id number] 10:48:00 Test Item Value Reference Range Interpretation Comments Monocytes (test code = Monocytes) 3.9 2.0-12.0 [facility] [id number] 10:48:00 Test Item Value Reference Range Interpretation Comments Segs (test code = Segs) 89.2 45.0-75.0 [facility] [id number] 10:48:00 Test Item Value Reference Range Interpretation Comments Basophils (test code = 0.3 See_Comment [Aut omated message] The Basophils) system which ge nerated this result tra nsmitted reference range : <=1.0. The reference r nicki was not used to int erpret this result as normal/abnormal . [facility]TswixnuXQFJTOWKJV0715-21-08 10:48:00 Test Item Value Reference Range Interpretation Comments Neutrophils # (test code = Neutrophils 13.0 1.5-8.1 #) [facility] CenterFfsfhlxKMBLGVCUXB1935-35-19 10:48:00 Test Item Value Reference Range Interpretation Comments Lymphocytes # (test code = Lymphocytes 1.0 1.0-5.5 #) [facility] CenterTihbdetMNMBZYFBUW5907-25-78 10:48:00 Test Item Value Reference Range Interpretation Comments Monocytes # (test code 0.6 See_Comment [Aut omated message] The = Monocytes #) system which generated this result tra nsmitted reference range : <=0.8. The reference r nicki was not used to int erpret this result as normal/abnormal . [facility] FSMTTTDTR6704-36-93 10:48:00 Test Item Value Reference Range Interpretation Comments Hgb A1C (test code = Hgb A1C) 6.7 [facility]2018-09-12 10:48:00 Test Item Value Reference Range Interpretation Comments eGFR (test code = eGFR) 62 [facility]2018-09-12 10:48:00 Test Item Value Reference Range Interpretation Comments Potassium Lvl (test code = Potassium 4.1 3.5-5.1 Lvl) [facility]2018-09-12 10:48:00 Test Item Value Reference Range Interpretation Comments Sodium Lvl (test code = Sodium Lvl) 141 135-145 [facility]2018-09-12 10:48:00 Test Item Value Reference Range Interpretation Comments Creatinine Lvl (test code = Creatinine 1.26 0.50-1.40 Lvl) [facility]2018-09-12 10:48:00 Test Item Value Reference Range Interpretation Comments BUN (test code = BUN) 13 7-22 [facility]2018-09-12 10:48:00 Test Item Value Reference Range Interpretation Comments Glucose Lvl (test code = Glucose Lvl) 309 70-99 [facility]2018-09-12 10:48:00 Test Item Value Reference Range Interpretation Comments CO2 (test code = CO2) 20 24-32 [facility]2018-09-12 10:48:00 Test Item Value Reference Range Interpretation Comments AGAP (test code = AGAP) 19.1 10.0-20.0 [facility]2018-09-12 10:48:00 Test Item Value Reference Range Interpretation Comments Chloride Lvl (test code = Chloride Lvl) 106 95-109 [facility]2018-09-12 10:48:00 Test Item Value Reference Range Interpretation Comments Calcium Lvl (test code = Calcium Lvl) 8.2 8.5-10.5 [facility]XrpfzfzDQLFGDKEMI9570-69-15 10:48:00 Test Item Value Reference Range Interpretation Comments MPV (test code = MPV) 12.5 7.4-10.4 [facility] CenterFoegfgsQZBIVWEELX9655-49-71 10:48:00 Test Item Value Reference Range Interpretation Comments Platelet (test code = Platelet) 168 133-450 [facility] CenterMjxrgweRBSPAFUWRU0753-62-64 10:48:00 Test Item Value Reference Range Interpretation Comments MCV (test code = MCV) 92.8 80.0-94.0 [facility] CenterAsxxtwjHFGCZWPCOS3956-03-56 10:48:00 Test Item Value Reference Range Interpretation Comments Hct (test code = Hct) 40.4 42.0-54.0 [facility] CenterGxyjdtdIBYHUQMXEW5543-71-19 10:48:00 Test Item Value Reference Range Interpretation Comments Hgb (test code = Hgb) 13.5 14.0-18.0 [facility] CenterKfqmzslWGAEBYGPBM4498-85-53 10:48:00 Test Item Value Reference Range Interpretation Comments RBC (test code = RBC) 4.35 4.70-6.10 [facility] CenterQbyvpboMPKKHRPDFR3555-16-60 10:48:00 Test Item Value Reference Range Interpretation Comments WBC (test code = WBC) 14.6 3.7-10.4 [facility] CenterJtmsltuXCTVQFIGPJ6332-47-80 10:48:00 Test Item Value Reference Range Interpretation Comments RDW (test code = RDW) 13.4 11.5-14.5 [facility] CenterJecstbmPOQBQIEYHK7083-88-12 10:48:00 Test Item Value Reference Range Interpretation Comments MCHC (test code = MCHC) 33.4 32.0-36.0 [facility] CenterYaheflvVIGXYEIBRM7924-78-92 10:48:00 Test Item Value Reference Range Interpretation Comments MCH (test code = MCH) 31.0 pg 27.0-31.0 [facility] CenterUcfbnnfSWVUKAJGCO1430-95-18 10:48:00 Test Item Value Reference Range Interpretation Comments Basophils # (test code 0.1 See_Comment [Aut omated message] The = Basophils #) system which generated this result tra nsmitted reference range : <=0.2. The reference r nicki was not used to int erpret this result as normal/abnormal . [facility] CenterQkvqkxsLHUTPRVDYQ5887-91-93 10:48:00 Test Item Value Reference Range Interpretation Comments Eosinophils (test code = 0.1 See_Comment [A utomated message] The Eosinophils) system which ge nerated this result tra nsmitted reference range : <=4.0. The reference r nicki was not used to int erpret this result as normal/abnormal . [facility]XxkxmrgMJBDFWFMNL1672-41-59 10:48:00 Test Item Value Reference Range Interpretation Comments Lymphocytes (test code = Lymphocytes) 6.5 20.0-40.0 [facility] HospitalMdtwsizQLOGTGQRMQ2638-27-62 10:48:00 Test Item Value Reference Range Interpretation Comments Monocytes (test code = Monocytes) 3.9 2.0-12.0 [facility] HospitalBmpntvpBKQAPHPLNC7508-65-51 10:48:00 Test Item Value Reference Range Interpretation Comments Segs (test code = Segs) 89.2 45.0-75.0 [facility] HospitalGculwikBMBZUVUHXV4797-46-93 10:48:00 Test Item Value Reference Range Interpretation Comments Basophils (test code = 0.3 See_Comment [Aut omated message] The Basophils) system which ge nerated this result tra nsmitted reference range : <=1.0. The reference r nicki was not used to int erpret this result as normal/abnormal . [facility] HospitalCbqakvpVVJANVLGLY8527-04-20 10:48:00 Test Item Value Reference Range Interpretation Comments Neutrophils # (test code = Neutrophils 13.0 1.5-8.1 #) [facility] CenterLqvftygGZDLQVMHVV0101-76-46 10:48:00 Test Item Value Reference Range Interpretation Comments Lymphocytes # (test code = Lymphocytes 1.0 1.0-5.5 #) [facility] CenterHneioyzZTYQFHTRFI9474-10-66 10:48:00 Test Item Value Reference Range Interpretation Comments Monocytes # (test code 0.6 See_Comment [Aut omated message] The = Monocytes #) system which generated this result tra nsmitted reference range : <=0.8. The reference r nicki was not used to int erpret this result as normal/abnormal . [facility] PWLLIVNAM7120-60-70 10:48:00 Test Item Value Reference Range Interpretation Comments Hgb A1C (test code = Hgb A1C) 6.7 [facility] AHZXO2747-71-95 10:48:00 Test Item Value Reference Range Interpretation Comments eGFR (test code = eGFR) 62 [facility]CHE[facility] SXHEF5303-68-07 10:48:00 Test Item Value Reference Range Interpretation Comments Potassium Lvl (test code = Potassium 4.1 3.5-5.1 Lvl) [facility]2018-09-12 10:48:00 Test Item Value Reference Range Interpretation Comments Sodium Lvl (test code = Sodium Lvl) 141 135-145 [facility]2018-09-12 10:48:00 Test Item Value Reference Range Interpretation Comments Creatinine Lvl (test code = Creatinine 1.26 0.50-1.40 Lvl) [facility]2018-09-12 10:48:00 Test Item Value Reference Range Interpretation Comments BUN (test code = BUN) 13 7-22 [facility]2018-09-12 10:48:00 Test Item Value Reference Range Interpretation Comments Glucose Lvl (test code = Glucose Lvl) 309 70-99 [facility]2018-09-12 10:48:00 Test Item Value Reference Range Interpretation Comments CO2 (test code = CO2) 20 24-32 [facility]2018-09-12 10:48:00 Test Item Value Reference Range Interpretation Comments AGAP (test code = AGAP) 19.1 10.0-20.0 [facility]2018-09-12 10:48:00 Test Item Value Reference Range Interpretation Comments Chloride Lvl (test code = Chloride Lvl) 106 95-109 [facility]2018-09-12 10:48:00 Test Item Value Reference Range Interpretation Comments Calcium Lvl (test code = Calcium Lvl) 8.2 8.5-10.5 [facility] CenterRxfnrxmBQWZMBFZYU9523-12-65 10:48:00 Test Item Value Reference Range Interpretation Comments MPV (test code = MPV) 12.5 7.4-10.4 [facility] CenterJaxdpdcXPMTADTHHB5111-05-52 10:48:00 Test Item Value Reference Range Interpretation Comments Platelet (test code = Platelet) 168 133-450 [facility] CenterYsleplfBYEELXEQQJ9224-73-27 10:48:00 Test Item Value Reference Range Interpretation Comments MCV (test code = MCV) 92.8 80.0-94.0 [facility] CenterAzlnmpoOXKMZRKRNW1785-17-39 10:48:00 Test Item Value Reference Range Interpretation Comments Hct (test code = Hct) 40.4 42.0-54.0 [facility] CenterUhzfiaaMTPGQYGFGL7889-22-81 10:48:00 Test Item Value Reference Range Interpretation Comments Hgb (test code = Hgb) 13.5 14.0-18.0 [facility] CenterMdefegkBXITZPFSXL9873-52-92 10:48:00 Test Item Value Reference Range Interpretation Comments RBC (test code = RBC) 4.35 4.70-6.10 [facility] CenterUdasonkWNCXPZQQOC6548-02-26 10:48:00 Test Item Value Reference Range Interpretation Comments WBC (test code = WBC) 14.6 3.7-10.4 [facility] CenterGgdwhhbVYSKZLKFAO8803-33-23 10:48:00 Test Item Value Reference Range Interpretation Comments RDW (test code = RDW) 13.4 11.5-14.5 [facility] CenterQuqutbjJVPOYSNVNS0161-76-92 10:48:00 Test Item Value Reference Range Interpretation Comments MCHC (test code = MCHC) 33.4 32.0-36.0 [facility] CenterExnjinqKEQCLWFVUC4141-04-64 10:48:00 Test Item Value Reference Range Interpretation Comments MCH (test code = MCH) 31.0 pg 27.0-31.0 [facility] CenterCrowmrvDNOUSCQQXG8307-91-62 10:48:00 Test Item Value Reference Range Interpretation Comments Basophils # (test code = Basophils #) 0.1 <=0.2 [facility] CenterOxcwomqZVQABPKOMU9436-43-28 10:48:00 Test Item Value Reference Range Interpretation Comments Eosinophils (test code = Eosinophils) 0.1 <=4.0 [facility] CenterSaruzkgNPBNNREONR9734-13-73 10:48:00 Test Item Value Reference Range Interpretation Comments Lymphocytes (test code = Lymphocytes) 6.5 20.0-40.0 [facility] CenterNlayutxEWMQNHYOOZ1783-78-77 10:48:00 Test Item Value Reference Range Interpretation Comments Monocytes (test code = Monocytes) 3.9 2.0-12.0 [facility] CenterIxwwnprNIHNCJVBJK8286-86-14 10:48:00 Test Item Value Reference Range Interpretation Comments Segs (test code = Segs) 89.2 45.0-75.0 [facility] CenterLvabrnfEIZXFSZPOA1050-76-05 10:48:00 Test Item Value Reference Range Interpretation Comments Basophils (test code = Basophils) 0.3 <=1.0 [facility] CenterOuydusjYLGFKCVRFE3719-74-26 10:48:00 Test Item Value Reference Range Interpretation Comments Neutrophils # (test code = Neutrophils 13.0 1.5-8.1 #) [facility] HospitalCdusgcvWRAOUCDQUJ4758-68-53 10:48:00 Test Item Value Reference Range Interpretation Comments Lymphocytes # (test code = Lymphocytes 1.0 1.0-5.5 #) [facility] HospitalNtjzmqzIJENREWWUD0364-70-97 10:48:00 Test Item Value Reference Range Interpretation Comments Monocytes # (test code = Monocytes #) 0.6 <=0.8 [facility] BUSASGYUD4103-28-95 10:48:00 Test Item Value Reference Range Interpretation Comments Hgb A1C (test code = Hgb A1C) 6.7 [facility]2018-09-12 10:48:00 Test Item Value Reference Range Interpretation Comments eGFR (test code = eGFR) 62 [facility]2018-09-12 10:48:00 Test Item Value Reference Range Interpretation Comments Potassium Lvl (test code = Potassium 4.1 3.5-5.1 Lvl) [facility]2018-09-12 10:48:00 Test Item Value Reference Range Interpretation Comments Sodium Lvl (test code = Sodium Lvl) 141 135-145 [facility]2018-09-12 10:48:00 Test Item Value Reference Range Interpretation Comments Creatinine Lvl (test code = Creatinine 1.26 0.50-1.40 Lvl) [facility]2018-09-12 10:48:00 Test Item Value Reference Range Interpretation Comments BUN (test code = BUN) 13 7-22 [facility]2018-09-12 10:48:00 Test Item Value Reference Range Interpretation Comments Glucose Lvl (test code = Glucose Lvl) 309 70-99 [facility]2018-09-12 10:48:00 Test Item Value Reference Range Interpretation Comments CO2 (test code = CO2) 20 24-32 [facility]2018-09-12 10:48:00 Test Item Value Reference Range Interpretation Comments AGAP (test code = AGAP) 19.1 10.0-20.0 [facility]2018-09-12 10:48:00 Test Item Value Reference Range Interpretation Comments Chloride Lvl (test code = Chloride Lvl) 106 95-109 [facility]2018-09-12 10:48:00 Test Item Value Reference Range Interpretation Comments Calcium Lvl (test code = Calcium Lvl) 8.2 8.5-10.5 [facility] CenterRymxaehGZETURLPES2462-28-86 10:48:00 Test Item Value Reference Range Interpretation Comments MPV (test code = MPV) 12.5 7.4-10.4 [facility] CenterXrurpodYJAGHHZLQQ1053-31-79 10:48:00 Test Item Value Reference Range Interpretation Comments Platelet (test code = Platelet) 168 133-450 [facility] CenterWmmqvnzXRGXBRNDTF9144-01-00 10:48:00 Test Item Value Reference Range Interpretation Comments MCV (test code = MCV) 92.8 80.0-94.0 [facility] CenterHrhqileMEIWMMRPGK9539-88-20 10:48:00 Test Item Value Reference Range Interpretation Comments Hct (test code = Hct) 40.4 42.0-54.0 [facility] CenterNxrdqvmROWXDRRRVD2820-91-29 10:48:00 Test Item Value Reference Range Interpretation Comments Hgb (test code = Hgb) 13.5 14.0-18.0 [facility] CenterXvcrlzwOFYGRXKYZF0582-28-92 10:48:00 Test Item Value Reference Range Interpretation Comments RBC (test code = RBC) 4.35 4.70-6.10 [facility] CenterFksayblYCSEJNAEHC1114-87-98 10:48:00 Test Item Value Reference Range Interpretation Comments WBC (test code = WBC) 14.6 3.7-10.4 [facility] CenterIxwmdomSMBRPQZUXH8713-21-43 10:48:00 Test Item Value Reference Range Interpretation Comments RDW (test code = RDW) 13.4 11.5-14.5 [facility] CenterCjxxetxQIFORLQTRG7189-11-59 10:48:00 Test Item Value Reference Range Interpretation Comments MCHC (test code = MCHC) 33.4 32.0-36.0 [facility] CenterHmfqcjkGEJXRWHPXN7192-31-50 10:48:00 Test Item Value Reference Range Interpretation Comments MCH (test code = MCH) 31.0 pg 27.0-31.0 [facility] CenterQogafkmVGMVKIBLWG8962-25-43 10:48:00 Test Item Value Reference Range Interpretation Comments Basophils # (test code 0.1 See_Comment [Aut omated message] The = Basophils #) system which generated this result tra nsmitted reference range : <=0.2. The reference r nicki was not used to int erpret this result as normal/abnormal . [facility] CenterFwtnoueFCGIQBYIII5501-75-53 10:48:00 Test Item Value Reference Range Interpretation Comments Eosinophils (test code = 0.1 See_Comment [A utomated message] The Eosinophils) system which ge nerated this result tra nsmitted reference range : <=4.0. The reference r nicki was not used to int erpret this result as normal/abnormal . [facility] CenterJkebqgjRLLBINNACE2367-73-35 10:48:00 Test Item Value Reference Range Interpretation Comments Lymphocytes (test code = Lymphocytes) 6.5 20.0-40.0 [facility] CenterIuevlwxGHBDQKYCXZ6932-70-14 10:48:00 Test Item Value Reference Range Interpretation Comments Monocytes (test code = Monocytes) 3.9 2.0-12.0 [facility] CenterNuuiqzrHLQULIDTPP8860-26-84 10:48:00 Test Item Value Reference Range Interpretation Comments Segs (test code = Segs) 89.2 45.0-75.0 [facility] CenterUypjhcwCYQESQTHLA1039-51-04 10:48:00 Test Item Value Reference Range Interpretation Comments Basophils (test code = 0.3 See_Comment [Aut omated message] The Basophils) system which ge nerated this result tra nsmitted reference range : <=1.0. The reference r nicki was not used to int erpret this result as normal/abnormal . [facility] CenterJeamgjlPMAIFEQEOZ4557-21-65 10:48:00 Test Item Value Reference Range Interpretation Comments Neutrophils # (test code = Neutrophils 13.0 1.5-8.1 #) [facility] CenterNclodcvVHHEWCDTIJ1112-09-88 10:48:00 Test Item Value Reference Range Interpretation Comments Lymphocytes # (test code = Lymphocytes 1.0 1.0-5.5 #) [facility] CenterQlauxyzKOUSZYYVDB1371-72-64 10:48:00 Test Item Value Reference Range Interpretation Comments Monocytes # (test code 0.6 See_Comment [Aut omated message] The = Monocytes #) system which generated this result tra nsmitted reference range : <=0.8. The reference r nicki was not used to int erpret this result as normal/abnormal . [facility] HPJMGIYRB3200-92-48 10:48:00 Test Item Value Reference Range Interpretation Comments Hgb A1C (test code = Hgb A1C) 6.7 [facility] XELUQ3631-98-32 10:48:00 Test Item Value Reference Range Interpretation Comments eGFR (test code = eGFR) 62 [facility]2018-09-12 10:48:00 Test Item Value Reference Range Interpretation Comments Potassium Lvl (test code = Potassium 4.1 3.5-5.1 Lvl) [facility]2018-09-12 10:48:00 Test Item Value Reference Range Interpretation Comments Sodium Lvl (test code = Sodium Lvl) 141 135-145 [facility]2018-09-12 10:48:00 Test Item Value Reference Range Interpretation Comments Creatinine Lvl (test code = Creatinine 1.26 0.50-1.40 Lvl) [facility]2018-09-12 10:48:00 Test Item Value Reference Range Interpretation Comments BUN (test code = BUN) 13 7-22 [facility]2018-09-12 10:48:00 Test Item Value Reference Range Interpretation Comments Glucose Lvl (test code = Glucose Lvl) 309 70-99 [facility]2018-09-12 10:48:00 Test Item Value Reference Range Interpretation Comments CO2 (test code = CO2) 20 24-32 [facility]2018-09-12 10:48:00 Test Item Value Reference Range Interpretation Comments AGAP (test code = AGAP) 19.1 10.0-20.0 [facility]2018-09-12 10:48:00 Test Item Value Reference Range Interpretation Comments Chloride Lvl (test code = Chloride Lvl) 106 95-109 [facility]2018-09-12 10:48:00 Test Item Value Reference Range Interpretation Comments Calcium Lvl (test code = Calcium Lvl) 8.2 8.5-10.5 [facility] CenterVzrkqrvWESHTQTCJF7804-26-01 10:48:00 Test Item Value Reference Range Interpretation Comments MPV (test code = MPV) 12.5 7.4-10.4 [facility] CenterYvxbjvhWSSMOQPYOW9741-43-93 10:48:00 Test Item Value Reference Range Interpretation Comments Platelet (test code = Platelet) 168 133-450 [facility] CenterNijtazfANLUGEKQPI8155-36-84 10:48:00 Test Item Value Reference Range Interpretation Comments MCV (test code = MCV) 92.8 80.0-94.0 [facility] CenterLmgtqlqEZNCKVLLBI8467-48-80 10:48:00 Test Item Value Reference Range Interpretation Comments Hct (test code = Hct) 40.4 42.0-54.0 [facility] CenterQiqwkalDNKMRTDOKJ8874-02-86 10:48:00 Test Item Value Reference Range Interpretation Comments Hgb (test code = Hgb) 13.5 14.0-18.0 [facility] CenterOjacwhlXRVWSELSWJ7940-87-97 10:48:00 Test Item Value Reference Range Interpretation Comments RBC (test code = RBC) 4.35 4.70-6.10 [facility] CenterKnhpfveWFLXXYUNQE5420-17-57 10:48:00 Test Item Value Reference Range Interpretation Comments WBC (test code = WBC) 14.6 3.7-10.4 [facility] CenterGhlitioOSQABFJDDR0872-48-95 10:48:00 Test Item Value Reference Range Interpretation Comments RDW (test code = RDW) 13.4 11.5-14.5 [facility] CenterOqkzwayOKCOIDNVZA7196-23-74 10:48:00 Test Item Value Reference Range Interpretation Comments MCHC (test code = MCHC) 33.4 32.0-36.0 [facility] CenterLynpcysPTVLXJCDZL4656-85-27 10:48:00 Test Item Value Reference Range Interpretation Comments MCH (test code = MCH) 31.0 pg 27.0-31.0 [facility] CenterQarnzwsWPDQNGJUCK5146-62-71 10:48:00 Test Item Value Reference Range Interpretation Comments Basophils # (test code = Basophils #) 0.1 <=0.2 [facility] CenterWbujabzZGQWZYICQC3666-39-04 10:48:00 Test Item Value Reference Range Interpretation Comments Eosinophils (test code = Eosinophils) 0.1 <=4.0 [facility] CenterYmeyyjhHXNZBMSHWN9088-21-17 10:48:00 Test Item Value Reference Range Interpretation Comments Lymphocytes (test code = Lymphocytes) 6.5 20.0-40.0 [facility] CenterFtlrbyvEHAYGKBDXN2920-01-28 10:48:00 Test Item Value Reference Range Interpretation Comments Monocytes (test code = Monocytes) 3.9 2.0-12.0 [facility] CenterRzftlvpKUEYLMACKX7790-86-51 10:48:00 Test Item Value Reference Range Interpretation Comments Segs (test code = Segs) 89.2 45.0-75.0 [facility] CenterNdauqzuCZDMFWQGZF2421-97-97 10:48:00 Test Item Value Reference Range Interpretation Comments Basophils (test code = Basophils) 0.3 <=1.0 [facility]DdeefqyKEDAWFDRWU9807-44-95 10:48:00 Test Item Value Reference Range Interpretation Comments Neutrophils # (test code = Neutrophils 13.0 1.5-8.1 #) [facility]VutteauTWSFXOGFXK6793-68-01 10:48:00 Test Item Value Reference Range Interpretation Comments Lymphocytes # (test code = Lymphocytes 1.0 1.0-5.5 #) [facility] HospitalByfbtcuQJKNHBZGCP5222-74-06 10:48:00 Test Item Value Reference Range Interpretation Comments Monocytes # (test code = Monocytes #) 0.6 <=0.8 [facility] KZLSRRASF9787-46-23 10:48:00 Test Item Value Reference Range Interpretation Comments Hgb A1C (test code = Hgb A1C) 6.7 [facility] MBTCDQU7447-68-89 02:52:00 Test Item Value Reference Range Interpretation Comments Antibody Scrn (test Negative (01/25/18 9:52 code = Antibody Scrn) PM) [facility] [id number] 02:52:00 Test Item Value Reference Range Interpretation Comments ABO/Rh (test code = ABO/Rh) A POS [facility] [employer] [id number] 02:52:00 Test Item Value Reference Range Interpretation Comments Antibody Scrn (test Negative (01/25/18 9:52 code = Antibody Scrn) PM) [facility] [id number] 02:52:00 Test Item Value Reference Range Interpretation Comments ABO/Rh (test code = ABO/Rh) A POS [facility] [employer] [id number] 02:52:00 Test Item Value Reference Range Interpretation Comments Antibody Scrn (test Negative (01/25/18 9:52 code = Antibody Scrn) PM) [facility] [id number] 02:52:00 Test Item Value Reference Range Interpretation Comments ABO/Rh (test code = ABO/Rh) A POS [facility] [employer] [id number] 02:52:00 Test Item Value Reference Range Interpretation Comments Antibody Scrn (test Negative (01/25/18 9:52 code = Antibody Scrn) PM) [facility] [id number] 02:52:00 Test Item Value Reference Range Interpretation Comments ABO/Rh (test code = ABO/Rh) A POS [facility] [id number] 02:52:00 Test Item Value Reference Range Interpretation Comments Antibody Scrn (test Negative (01/25/18 9:52 code = Antibody Scrn) PM) [facility] [id number] 02:52:00 Test Item Value Reference Range Interpretation Comments ABO/Rh (test code = ABO/Rh) A POS [facility] CenterCpnjtcaMJBCYUJMYE1100-10-83 02:50:00 Test Item Value Reference Range Interpretation Comments Hgb (test code = Hgb) 14.7 14.0-18.0 [facility] CenterNremqwnPWMDTDJJQJ2445-95-91 02:50:00 Test Item Value Reference Range Interpretation Comments RBC (test code = RBC) 4.81 4.70-6.10 [facility] CenterKaadhigVFQGXMFECM4919-85-87 02:50:00 Test Item Value Reference Range Interpretation Comments WBC (test code = WBC) 16.0 3.7-10.4 [facility] CenterWieoshaLGHWKNQNPI1086-18-16 02:50:00 Test Item Value Reference Range Interpretation Comments PT (test code = PT) 14.0 s 12.0-14.7 [facility] CenterQgjoqwuRPEZNSQEHK2636-82-66 02:50:00 Test Item Value Reference Range Interpretation Comments INR (test code = INR) 1.08 1 0.85-1.17 [facility] CenterRlwtaxlTWKXRKTDBG5884-30-35 02:50:00 Test Item Value Reference Range Interpretation Comments Basophils (test code = 1.0 See_Comment [Aut omated message] The Basophils) system which ge nerated this result tra nsmitted reference range : <=1.0. The reference r nicki was not used to int erpret this result as normal/abnormal . [facility] CenterDujssobVKTZSAKGUE5690-22-56 02:50:00 Test Item Value Reference Range Interpretation Comments Neutrophils # (test code = Neutrophils 12.2 1.5-8.1 #) [facility] CenterKflwdvtHUJJTKYNWG8099-84-26 02:50:00 Test Item Value Reference Range Interpretation Comments Monocytes # (test code 1.1 See_Comment [Aut omated message] The = Monocytes #) system which generated this result tra nsmitted reference range : <=0.8. The reference r nicki was not used to int erpret this result as normal/abnormal . [facility] CenterBjwflzrDAUNTLOHZI9835-91-46 02:50:00 Test Item Value Reference Range Interpretation Comments Lymphocytes # (test code = Lymphocytes 2.4 1.0-5.5 #) [facility] CenterAfcyzmrXYJHSFWFRB9494-65-29 02:50:00 Test Item Value Reference Range Interpretation Comments Eosinophils # (test code 0.2 See_Comment [A utomated message] The = Eosinophils #) system whic h generated this result tra nsmitted reference range : <=0.5. The reference r nicki was not used to int erpret this result as normal/abnormal . [facility] CenterYakalhyYFXQQGBDPL0730-76-24 02:50:00 Test Item Value Reference Range Interpretation Comments Basophils # (test code 0.2 See_Comment [Aut omated message] The = Basophils #) system which generated this result tra nsmitted reference range : <=0.2. The reference r nicki was not used to int erpret this result as normal/abnormal . [facility] CenterAlnqlhvVKKCMJRDSW1720-45-76 02:50:00 Test Item Value Reference Range Interpretation Comments Monocytes (test code = Monocytes) 6.6 2.0-12.0 [facility] CenterVvswpvqZIOVMMAZQY3972-94-05 02:50:00 Test Item Value Reference Range Interpretation Comments Eosinophils (test code = 0.9 See_Comment [A utomated message] The Eosinophils) system which ge nerated this result tra nsmitted reference range : <=4.0. The reference r nicki was not used to int erpret this result as normal/abnormal . [facility] CenterPuhyqbqLPNGGBIMHW0089-65-96 02:50:00 Test Item Value Reference Range Interpretation Comments Segs (test code = Segs) 76.2 45.0-75.0 [facility] CenterNshsdphKWDGSKDXYN6785-38-40 02:50:00 Test Item Value Reference Range Interpretation Comments Lymphocytes (test code = Lymphocytes) 15.3 20.0-40.0 [facility]2018-09-12 02:50:00 Test Item Value Reference Range Interpretation Comments eGFR (test code = eGFR) 94 [facility]2018-09-12 02:50:00 Test Item Value Reference Range Interpretation Comments Glucose Lvl (test code = Glucose Lvl) 146 70-99 [facility]2018-09-12 02:50:00 Test Item Value Reference Range Interpretation Comments AGAP (test code = AGAP) 12.7 10.0-20.0 [facility]2018-09-12 02:50:00 Test Item Value Reference Range Interpretation Comments Calcium Lvl (test code = Calcium Lvl) 8.5 8.5-10.5 [facility]2018-09-12 02:50:00 Test Item Value Reference Range Interpretation Comments Creatinine Lvl (test code = Creatinine 0.88 0.50-1.40 Lvl) [facility]2018-09-12 02:50:00 Test Item Value Reference Range Interpretation Comments Chloride Lvl (test code = Chloride Lvl) 112 95-109 [facility]2018-09-12 02:50:00 Test Item Value Reference Range Interpretation Comments CO2 (test code = CO2) 23 24-32 [facility]2018-09-12 02:50:00 Test Item Value Reference Range Interpretation Comments Sodium Lvl (test code = Sodium Lvl) 143 135-145 [facility]2018-09-12 02:50:00 Test Item Value Reference Range Interpretation Comments Potassium Lvl (test code = Potassium 4.7 3.5-5.1 Lvl) [facility]2018-09-12 02:50:00 Test Item Value Reference Range Interpretation Comments BUN (test code = BUN) 12 7-22 [facility] CenterAopceqpGTELEELSMW2571-77-53 02:50:00 Test Item Value Reference Range Interpretation Comments Estimated % Lysis Rapid 1.8 See_Comment [Au tomated message] The (test code = Estimated syste m which generated % Lysis Rapid) this result t ransmitted reference range : <=7.5. The reference r nicki was not used to int erpret this result as normal/abnormal . [facility] CenterRoprsesHTGCSKVVDD1427-32-48 02:50:00 Test Item Value Reference Range Interpretation Comments R-time Rapid (test code = R-time 0.8 min 0.4-0.7 Rapid) [place] 101628-09-12 02:50:00 Test Item Value Reference Range Interpretation Comments K-time Rapid (test code = K-time 1.3 min 0.6-2.3 Rapid) [facility] CenterWdvzhqlPJNRYOOAPI3843-96-36 02:50:00 Test Item Value Reference Range Interpretation Comments Angle Rapid (test code = Angle 72 degrees 64-80 Rapid) [facility] CenterFpsqmrfHFSWDNEABO3808-78-98 02:50:00 Test Item Value Reference Range Interpretation Comments ACT (TEG) Rapid (test code = ACT (TEG) 128 s 86-118 Rapid) [facility] CenterZfligltREWMNFKEZD5160-33-54 02:50:00 Test Item Value Reference Range Interpretation Comments Split Point Rapid (test code = Split 0.6 min Point Rapid) [facility] CenterKvgthlsJENSZATTOG5501-56-17 02:50:00 Test Item Value Reference Range Interpretation Comments G-value Rapid (test code = G-value 11.5 5.0-11.6 Rapid) [facility] CenterSudmywcKLWKPXLUHN3194-50-11 02:50:00 Test Item Value Reference Range Interpretation Comments Max Amplitude Rapid (test code = Max 70 mm 52-71 Amplitude Rapid) [facility] CenterXyycxmtRRPWVXUCOH2563-49-73 02:50:00 Test Item Value Reference Range Interpretation Comments Platelet (test code = Platelet) 196 133-450 [facility] CenterYgrnukeMLSKCILRMY8636-79-05 02:50:00 Test Item Value Reference Range Interpretation Comments MPV (test code = MPV) 11.6 7.4-10.4 [facility] CenterMddkxiyJMILDPYYVQ8340-21-23 02:50:00 Test Item Value Reference Range Interpretation Comments Hct (test code = Hct) 44.4 42.0-54.0 [facility] CenterQorgrbeSKQUMQSQSG3074-56-53 02:50:00 Test Item Value Reference Range Interpretation Comments RDW (test code = RDW) 13.4 11.5-14.5 [facility] CenterBsqlxbpBVZJVZFHBP4551-11-81 02:50:00 Test Item Value Reference Range Interpretation Comments MCHC (test code = MCHC) 33.2 32.0-36.0 [facility] CenterNegjxgbZYAGSUSWEO3316-30-25 02:50:00 Test Item Value Reference Range Interpretation Comments MCH (test code = MCH) 30.6 pg 27.0-31.0 [facility] CenterYxmgdfzDCDNVQYWLJ7972-77-12 02:50:00 Test Item Value Reference Range Interpretation Comments MCV (test code = MCV) 92.4 80.0-94.0 [facility] CenterKgzfzqpUNWFGRLUCV9067-26-07 02:50:00 Test Item Value Reference Range Interpretation Comments Hgb (test code = Hgb) 14.7 14.0-18.0 [facility] CenterYsfabdkIQGIEEZQBF4370-41-63 02:50:00 Test Item Value Reference Range Interpretation Comments RBC (test code = RBC) 4.81 4.70-6.10 [facility] CenterAdpllliXQLHHSDYRC0691-46-39 02:50:00 Test Item Value Reference Range Interpretation Comments WBC (test code = WBC) 16.0 3.7-10.4 [facility] CenterJjdzboeOCVJQOTDRM8714-40-29 02:50:00 Test Item Value Reference Range Interpretation Comments PT (test code = PT) 14.0 s 12.0-14.7 [facility] CenterMnawvaoKFCSSYCUAA6860-20-17 02:50:00 Test Item Value Reference Range Interpretation Comments INR (test code = INR) 1.08 1 0.85-1.17 [facility] CenterTrmahdyINCQUTDWAR7462-54-10 02:50:00 Test Item Value Reference Range Interpretation Comments Basophils (test code = 1.0 See_Comment [Aut omated message] The Basophils) system which ge nerated this result tra nsmitted reference range : <=1.0. The reference r nicki was not used to int erpret this result as normal/abnormal . [facility] CenterWodtwlcFNJRDFSHSH1301-96-45 02:50:00 Test Item Value Reference Range Interpretation Comments Neutrophils # (test code = Neutrophils 12.2 1.5-8.1 #) [facility] CenterUqeyakjWILNCVOFGF7221-51-32 02:50:00 Test Item Value Reference Range Interpretation Comments Monocytes # (test code 1.1 See_Comment [Aut omated message] The = Monocytes #) system which generated this result tra nsmitted reference range : <=0.8. The reference r nicki was not used to int erpret this result as normal/abnormal . [facility] CenterXyodmqlQHSCPDNQCR6517-64-69 02:50:00 Test Item Value Reference Range Interpretation Comments Lymphocytes # (test code = Lymphocytes 2.4 1.0-5.5 #) [facility] CenterJpedkfzPNTEVTFRUN6483-73-43 02:50:00 Test Item Value Reference Range Interpretation Comments Eosinophils # (test code 0.2 See_Comment [A utomated message] The = Eosinophils #) system whic h generated this result tra nsmitted reference range : <=0.5. The reference r nicki was not used to int erpret this result as normal/abnormal . [facility] CenterAowzwcmLYRBXHNYPO5674-89-12 02:50:00 Test Item Value Reference Range Interpretation Comments Basophils # (test code 0.2 See_Comment [Aut omated message] The = Basophils #) system which generated this result tra nsmitted reference range : <=0.2. The reference r nicki was not used to int erpret this result as normal/abnormal . [facility] CenterMsofultGAQPDCECOQ1866-39-14 02:50:00 Test Item Value Reference Range Interpretation Comments Monocytes (test code = Monocytes) 6.6 2.0-12.0 [facility] CenterPahdiwdLCMETFAWAC5754-67-74 02:50:00 Test Item Value Reference Range Interpretation Comments Eosinophils (test code = 0.9 See_Comment [A utomated message] The Eosinophils) system which ge nerated this result tra nsmitted reference range : <=4.0. The reference r nicki was not used to int erpret this result as normal/abnormal . [facility] CenterPiuyrvgRENCGQWAAN9074-52-89 02:50:00 Test Item Value Reference Range Interpretation Comments Segs (test code = Segs) 76.2 45.0-75.0 [facility] CenterIuwoffvMNPFNTWLXC6051-74-40 02:50:00 Test Item Value Reference Range Interpretation Comments Lymphocytes (test code = Lymphocytes) 15.3 20.0-40.0 [facility]2018-09-12 02:50:00 Test Item Value Reference Range Interpretation Comments eGFR (test code = eGFR) 94 [facility]2018-09-12 02:50:00 Test Item Value Reference Range Interpretation Comments Glucose Lvl (test code = Glucose Lvl) 146 70-99 [facility]2018-09-12 02:50:00 Test Item Value Reference Range Interpretation Comments AGAP (test code = AGAP) 12.7 10.0-20.0 [facility]2018-09-12 02:50:00 Test Item Value Reference Range Interpretation Comments Calcium Lvl (test code = Calcium Lvl) 8.5 8.5-10.5 [facility]2018-09-12 02:50:00 Test Item Value Reference Range Interpretation Comments Creatinine Lvl (test code = Creatinine 0.88 0.50-1.40 Lvl) [facility]2018-09-12 02:50:00 Test Item Value Reference Range Interpretation Comments Chloride Lvl (test code = Chloride Lvl) 112 95-109 [facility]2018-09-12 02:50:00 Test Item Value Reference Range Interpretation Comments CO2 (test code = CO2) 23 24-32 [place] 806608-09-12 02:50:00 Test Item Value Reference Range Interpretation Comments Sodium Lvl (test code = Sodium Lvl) 143 135-145 [facility]2018-09-12 02:50:00 Test Item Value Reference Range Interpretation Comments Potassium Lvl (test code = Potassium 4.7 3.5-5.1 Lvl) [facility]2018-09-12 02:50:00 Test Item Value Reference Range Interpretation Comments BUN (test code = BUN) 12 - [facility] CenterStofntnLEOHFDSZKN0309-04-52 02:50:00 Test Item Value Reference Range Interpretation Comments Estimated % Lysis Rapid 1.8 See_Comment [Au tomated message] The (test code = Estimated syste m which generated % Lysis Rapid) this result t ransmitted reference range : <=7.5. The reference r nicki was not used to int erpret this result as normal/abnormal . [facility] CenterFikxgxnSQSKWSVNQO2898-73-51 02:50:00 Test Item Value Reference Range Interpretation Comments R-time Rapid (test code = R-time 0.8 min 0.4-0.7 Rapid) [facility] CenterKaqzvffTUCTMKDMAA4756-23-50 02:50:00 Test Item Value Reference Range Interpretation Comments K-time Rapid (test code = K-time 1.3 min 0.6-2.3 Rapid) [facility] CenterVpkbbzwNQDXHQVQTR0020-78-70 02:50:00 Test Item Value Reference Range Interpretation Comments Angle Rapid (test code = Angle 72 degrees 64-80 Rapid) [facility] CenterUsgjzjgGEKNBKIJNU9540-16-42 02:50:00 Test Item Value Reference Range Interpretation Comments ACT (TEG) Rapid (test code = ACT (TEG) 128 s 86-118 Rapid) [facility] CenterBxlcuocDXNULLXGWO0657-82-62 02:50:00 Test Item Value Reference Range Interpretation Comments Split Point Rapid (test code = Split 0.6 min Point Rapid) [facility] CenterHithmjsVWNSZYYZNZ8926-89-95 02:50:00 Test Item Value Reference Range Interpretation Comments G-value Rapid (test code = G-value 11.5 5.0-11.6 Rapid) [facility] CenterIsiyilpRVVWDIAWSK3965-79-89 02:50:00 Test Item Value Reference Range Interpretation Comments Max Amplitude Rapid (test code = Max 70 mm 52-71 Amplitude Rapid) [facility] CenterFhmdlzlNHNUEMHBKA8790-39-72 02:50:00 Test Item Value Reference Range Interpretation Comments Platelet (test code = Platelet) 196 133-450 [facility] CenterHhhkeeuKKCMCBNLIA8354-18-31 02:50:00 Test Item Value Reference Range Interpretation Comments MPV (test code = MPV) 11.6 7.4-10.4 [facility] CenterPuvoflqITWVFWUGRS4286-10-46 02:50:00 Test Item Value Reference Range Interpretation Comments Hct (test code = Hct) 44.4 42.0-54.0 [facility] CenterYdobrvoFKWLKVLBGH0798-52-46 02:50:00 Test Item Value Reference Range Interpretation Comments RDW (test code = RDW) 13.4 11.5-14.5 [facility] CenterJztiotgPIAABEHSJS4190-51-75 02:50:00 Test Item Value Reference Range Interpretation Comments MCHC (test code = MCHC) 33.2 32.0-36.0 [facility] CenterNdtbebqKABXHXFRSB0708-41-02 02:50:00 Test Item Value Reference Range Interpretation Comments MCH (test code = MCH) 30.6 pg 27.0-31.0 [facility] CenterKkzcaioFOTEJQYXZD8999-90-62 02:50:00 Test Item Value Reference Range Interpretation Comments MCV (test code = MCV) 92.4 80.0-94.0 [facility] CenterIbjzdmrAFOFSZOKDQ8525-96-20 02:50:00 Test Item Value Reference Range Interpretation Comments Hgb (test code = Hgb) 14.7 14.0-18.0 [facility] CenterHghusrpXOCCLCZUTQ5852-19-49 02:50:00 Test Item Value Reference Range Interpretation Comments RBC (test code = RBC) 4.81 4.70-6.10 [facility] CenterVsuovnsAVKPDFJSXI1374-27-88 02:50:00 Test Item Value Reference Range Interpretation Comments WBC (test code = WBC) 16.0 3.7-10.4 [facility] CenterKbinywbJBDWOKEDPK2892-78-31 02:50:00 Test Item Value Reference Range Interpretation Comments PT (test code = PT) 14.0 s 12.0-14.7 [facility] CenterIyktptkOGCJZBSYUN9252-00-73 02:50:00 Test Item Value Reference Range Interpretation Comments INR (test code = INR) 1.08 1 0.85-1.17 [facility] CenterOsczobnYRYKSWXQQP6965-42-69 02:50:00 Test Item Value Reference Range Interpretation Comments Basophils (test code = 1.0 See_Comment [Aut omated message] The Basophils) system which ge nerated this result tra nsmitted reference range : <=1.0. The reference r nicki was not used to int erpret this result as normal/abnormal . [facility] CenterMtmhlyxKOYSJDISXX6435-35-27 02:50:00 Test Item Value Reference Range Interpretation Comments Neutrophils # (test code = Neutrophils 12.2 1.5-8.1 #) [facility] CenterLlxdhkkSHRAOZAHJM9510-33-79 02:50:00 Test Item Value Reference Range Interpretation Comments Monocytes # (test code 1.1 See_Comment [Aut omated message] The = Monocytes #) system which generated this result tra nsmitted reference range : <=0.8. The reference r nicki was not used to int erpret this result as normal/abnormal . [facility] CenterVjokoksBCDPULJKRU0948-03-17 02:50:00 Test Item Value Reference Range Interpretation Comments Lymphocytes # (test code = Lymphocytes 2.4 1.0-5.5 #) [facility] CenterTvpcyhxDGYSXZROXU2758-94-80 02:50:00 Test Item Value Reference Range Interpretation Comments Eosinophils # (test code 0.2 See_Comment [A utomated message] The = Eosinophils #) system whic h generated this result tra nsmitted reference range : <=0.5. The reference r nicki was not used to int erpret this result as normal/abnormal . [facility] CenterFnuabpvAXIXXFQTOZ3550-46-09 02:50:00 Test Item Value Reference Range Interpretation Comments Basophils # (test code 0.2 See_Comment [Aut omated message] The = Basophils #) system which generated this result tra nsmitted reference range : <=0.2. The reference r nicki was not used to int erpret this result as normal/abnormal . [facility] CenterRdkztokSAVMLVNMYD0467-73-38 02:50:00 Test Item Value Reference Range Interpretation Comments Monocytes (test code = Monocytes) 6.6 2.0-12.0 [facility] CenterZyrbrzsFHVCBVQUTE4842-03-09 02:50:00 Test Item Value Reference Range Interpretation Comments Eosinophils (test code = 0.9 See_Comment [A utomated message] The Eosinophils) system which ge nerated this result tra nsmitted reference range : <=4.0. The reference r nicki was not used to int erpret this result as normal/abnormal . [place] 101628-09-12 02:50:00 Test Item Value Reference Range Interpretation Comments Segs (test code = Segs) 76.2 45.0-75.0 [facility] CenterAlyfhcmLILSEPKQFG2310-55-38 02:50:00 Test Item Value Reference Range Interpretation Comments Lymphocytes (test code = Lymphocytes) 15.3 20.0-40.0 [facility]2018-09-12 02:50:00 Test Item Value Reference Range Interpretation Comments eGFR (test code = eGFR) 94 [facility]2018-09-12 02:50:00 Test Item Value Reference Range Interpretation Comments Glucose Lvl (test code = Glucose Lvl) 146 70-99 [facility]2018-09-12 02:50:00 Test Item Value Reference Range Interpretation Comments AGAP (test code = AGAP) 12.7 10.0-20.0 [facility]2018-09-12 02:50:00 Test Item Value Reference Range Interpretation Comments Calcium Lvl (test code = Calcium Lvl) 8.5 8.5-10.5 [facility]2018-09-12 02:50:00 Test Item Value Reference Range Interpretation Comments Creatinine Lvl (test code = Creatinine 0.88 0.50-1.40 Lvl) [facility]2018-09-12 02:50:00 Test Item Value Reference Range Interpretation Comments Chloride Lvl (test code = Chloride Lvl) 112 95-109 [place] 806608-09-12 02:50:00 Test Item Value Reference Range Interpretation Comments CO2 (test code = CO2) 23 24-32 [facility]2018-09-12 02:50:00 Test Item Value Reference Range Interpretation Comments Sodium Lvl (test code = Sodium Lvl) 143 135-145 [facility]2018-09-12 02:50:00 Test Item Value Reference Range Interpretation Comments Potassium Lvl (test code = Potassium 4.7 3.5-5.1 Lvl) [facility]2018-09-12 02:50:00 Test Item Value Reference Range Interpretation Comments BUN (test code = BUN) 12 12-05 [facility] CenterFhmbsptOZMKSITJGS4851-50-08 02:50:00 Test Item Value Reference Range Interpretation Comments Estimated % Lysis Rapid (test code = 1.8 <=7.5 Estimated % Lysis Rapid) [facility] CenterHilscmbOPJPWJLEAG1296-13-72 02:50:00 Test Item Value Reference Range Interpretation Comments R-time Rapid (test code = R-time 0.8 min 0.4-0.7 Rapid) [facility] CenterOauzshpOIGQLYSQBF5427-06-52 02:50:00 Test Item Value Reference Range Interpretation Comments K-time Rapid (test code = K-time 1.3 min 0.6-2.3 Rapid) [facility] CenterMhjhuouKJUPTIUTBU2291-10-64 02:50:00 Test Item Value Reference Range Interpretation Comments Angle Rapid (test code = Angle 72 degrees 64-80 Rapid) [facility] CenterVqfmpzmMSWPQWFNDM4854-13-16 02:50:00 Test Item Value Reference Range Interpretation Comments ACT (TEG) Rapid (test code = ACT (TEG) 128 s 86-118 Rapid) [facility] CenterFlspvdeDQRFVGIJOP9507-63-88 02:50:00 Test Item Value Reference Range Interpretation Comments Split Point Rapid (test code = Split 0.6 min Point Rapid) [facility] CenterQpywgamQTSAQJCIWI6519-87-51 02:50:00 Test Item Value Reference Range Interpretation Comments G-value Rapid (test code = G-value 11.5 5.0-11.6 Rapid) [facility] CenterQmswlonCTCRQGOXUA4994-34-00 02:50:00 Test Item Value Reference Range Interpretation Comments Max Amplitude Rapid (test code = Max 70 mm 52-71 Amplitude Rapid) [facility] CenterKomqyzaQYOOBRXQAQ9870-05-91 02:50:00 Test Item Value Reference Range Interpretation Comments Platelet (test code = Platelet) 196 133-450 [facility] CenterOkqoxwnGFCMHFMBFJ1025-24-39 02:50:00 Test Item Value Reference Range Interpretation Comments MPV (test code = MPV) 11.6 7.4-10.4 [facility] CenterGmzpwsvLLYIKYTQSM5970-93-55 02:50:00 Test Item Value Reference Range Interpretation Comments Hct (test code = Hct) 44.4 42.0-54.0 [facility] CenterYwfignvVITZDGOGMP0024-94-62 02:50:00 Test Item Value Reference Range Interpretation Comments RDW (test code = RDW) 13.4 11.5-14.5 [facility] CenterIzahyyxSBJLQCTHYD8862-46-60 02:50:00 Test Item Value Reference Range Interpretation Comments MCHC (test code = MCHC) 33.2 32.0-36.0 [facility] CenterXhjvypmOBTWBKJOBT2790-79-17 02:50:00 Test Item Value Reference Range Interpretation Comments MCH (test code = MCH) 30.6 pg 27.0-31.0 [facility] CenterNtbfoxjJPFPTXOAXI9073-06-95 02:50:00 Test Item Value Reference Range Interpretation Comments MCV (test code = MCV) 92.4 80.0-94.0 [facility] CenterTfgvjdsSPJNLELNYH7895-28-67 02:50:00 Test Item Value Reference Range Interpretation Comments Hgb (test code = Hgb) 14.7 14.0-18.0 [facility] CenterHcqdptmFPIXERICBP8158-88-68 02:50:00 Test Item Value Reference Range Interpretation Comments RBC (test code = RBC) 4.81 4.70-6.10 [facility] CenterInuiamsNBTMYXMLFT4231-81-32 02:50:00 Test Item Value Reference Range Interpretation Comments WBC (test code = WBC) 16.0 3.7-10.4 [facility] CenterWgcfafoWLOTTYOMJA2610-64-93 02:50:00 Test Item Value Reference Range Interpretation Comments PT (test code = PT) 14.0 s 12.0-14.7 [facility]PwngofcSOEOMHGTKX2243-84-31 02:50:00 Test Item Value Reference Range Interpretation Comments INR (test code = INR) 1.08 1 0.85-1.17 [facility] CenterOxqpeipYJHTRQTUSQ6151-49-72 02:50:00 Test Item Value Reference Range Interpretation Comments Basophils (test code = Basophils) 1.0 <=1.0 [facility] CenterMujtbbtVFHUAZXNQI3204-55-89 02:50:00 Test Item Value Reference Range Interpretation Comments Neutrophils # (test code = Neutrophils 12.2 1.5-8.1 #) [facility] CenterXhyffeuVDIDPMRBFS8299-38-62 02:50:00 Test Item Value Reference Range Interpretation Comments Monocytes # (test code = Monocytes #) 1.1 <=0.8 [place] 101628-09-12 02:50:00 Test Item Value Reference Range Interpretation Comments Lymphocytes # (test code = Lymphocytes 2.4 1.0-5.5 #) [facility] CenterKsdsmwyWUVLRKNWYI7882-90-90 02:50:00 Test Item Value Reference Range Interpretation Comments Eosinophils # (test code = Eosinophils 0.2 <=0.5 #) [facility] CenterOrwqjdjJCWHBGXLIA6435-17-26 02:50:00 Test Item Value Reference Range Interpretation Comments Basophils # (test code = Basophils #) 0.2 <=0.2 [facility] CenterUyblnitYHXCVQNOOO8637-48-07 02:50:00 Test Item Value Reference Range Interpretation Comments Monocytes (test code = Monocytes) 6.6 2.0-12.0 [facility] CenterRqfswzlQWIHVGFZOJ2698-97-82 02:50:00 Test Item Value Reference Range Interpretation Comments Eosinophils (test code = Eosinophils) 0.9 <=4.0 [facility] CenterGyewxnqUMJLOBGPSK8343-84-15 02:50:00 Test Item Value Reference Range Interpretation Comments Segs (test code = Segs) 76.2 45.0-75.0 [place] 101628-09-12 02:50:00 Test Item Value Reference Range Interpretation Comments Lymphocytes (test code = Lymphocytes) 15.3 20.0-40.0 [facility]2018-09-12 02:50:00 Test Item Value Reference Range Interpretation Comments eGFR (test code = eGFR) 94 [facility]2018-09-12 02:50:00 Test Item Value Reference Range Interpretation Comments Glucose Lvl (test code = Glucose Lvl) 146 70-99 [facility]2018-09-12 02:50:00 Test Item Value Reference Range Interpretation Comments AGAP (test code = AGAP) 12.7 10.0-20.0 [facility]2018-09-12 02:50:00 Test Item Value Reference Range Interpretation Comments Calcium Lvl (test code = Calcium Lvl) 8.5 8.5-10.5 [facility]2018-09-12 02:50:00 Test Item Value Reference Range Interpretation Comments Creatinine Lvl (test code = Creatinine 0.88 0.50-1.40 Lvl) [facility]2018-09-12 02:50:00 Test Item Value Reference Range Interpretation Comments Chloride Lvl (test code = Chloride Lvl) 112 95-109 [facility]2018-09-12 02:50:00 Test Item Value Reference Range Interpretation Comments CO2 (test code = CO2) 23 24-32 [facility]2018-09-12 02:50:00 Test Item Value Reference Range Interpretation Comments Sodium Lvl (test code = Sodium Lvl) 143 135-145 [facility]2018-09-12 02:50:00 Test Item Value Reference Range Interpretation Comments Potassium Lvl (test code = Potassium 4.7 3.5-5.1 Lvl) [facility]2018-09-12 02:50:00 Test Item Value Reference Range Interpretation Comments BUN (test code = BUN) 12 7- [facility] CenterCrnoqvzCGBCNVJXUY8986-36-68 02:50:00 Test Item Value Reference Range Interpretation Comments Estimated % Lysis Rapid 1.8 See_Comment [Au tomated message] The (test code = Estimated syste m which generated % Lysis Rapid) this result t ransmitted reference range : <=7.5. The reference r nicki was not used to int erpret this result as normal/abnormal . [facility] CenterOtpdqaeZEASDHPAKJ0879-11-50 02:50:00 Test Item Value Reference Range Interpretation Comments R-time Rapid (test code = R-time 0.8 min 0.4-0.7 Rapid) [facility] CenterGfjphfkHEOHLZCYYL9643-78-60 02:50:00 Test Item Value Reference Range Interpretation Comments K-time Rapid (test code = K-time 1.3 min 0.6-2.3 Rapid) [facility] CenterCckfamyMCQIRFYYUE2514-54-04 02:50:00 Test Item Value Reference Range Interpretation Comments Angle Rapid (test code = Angle 72 degrees 64-80 Rapid) [facility] CenterQfssrmbQLZDZLCEKP6448-31-05 02:50:00 Test Item Value Reference Range Interpretation Comments ACT (TEG) Rapid (test code = ACT (TEG) 128 s 86-118 Rapid) [facility] CenterNqyqagtYXKEFZOPYR3136-67-62 02:50:00 Test Item Value Reference Range Interpretation Comments Split Point Rapid (test code = Split 0.6 min Point Rapid) [facility] CenterNvvbdiuSUHTCJFOOW1175-56-09 02:50:00 Test Item Value Reference Range Interpretation Comments G-value Rapid (test code = G-value 11.5 5.0-11.6 Rapid) [facility] CenterBmrzdkpBQDKZNODDX4402-12-19 02:50:00 Test Item Value Reference Range Interpretation Comments Max Amplitude Rapid (test code = Max 70 mm 52-71 Amplitude Rapid) [facility] CenterQnfckarQXMARSEFIW4854-63-76 02:50:00 Test Item Value Reference Range Interpretation Comments Platelet (test code = Platelet) 196 133-450 [facility] CenterQozvslsEQOXUMTJOR3179-59-67 02:50:00 Test Item Value Reference Range Interpretation Comments MPV (test code = MPV) 11.6 7.4-10.4 [facility] CenterNdgicndCUDLNBTGVA7307-29-20 02:50:00 Test Item Value Reference Range Interpretation Comments Hct (test code = Hct) 44.4 42.0-54.0 [facility] CenterNzsxgnsYHWHEEGQXM1366-24-28 02:50:00 Test Item Value Reference Range Interpretation Comments RDW (test code = RDW) 13.4 11.5-14.5 [facility] CenterTmuczesJHBQODKGSN6393-81-15 02:50:00 Test Item Value Reference Range Interpretation Comments MCHC (test code = MCHC) 33.2 32.0-36.0 [facility] CenterXsflunlUSRYDMBNRC4786-83-98 02:50:00 Test Item Value Reference Range Interpretation Comments MCH (test code = MCH) 30.6 pg 27.0-31.0 [facility] CenterEvaekahSESHWBHIFP1520-80-05 02:50:00 Test Item Value Reference Range Interpretation Comments MCV (test code = MCV) 92.4 80.0-94.0 [facility] CenterTvgdpvyBFKFEQCBHA8861-32-22 02:50:00 Test Item Value Reference Range Interpretation Comments MCH (test code = MCH) 30.6 pg 27.0-31.0 [facility] CenterIpmlidvHBAZAMRIHH8564-10-86 02:50:00 Test Item Value Reference Range Interpretation Comments MCV (test code = MCV) 92.4 80.0-94.0 [facility] CenterEzspkagKXFOLRAPQT2862-98-43 02:50:00 Test Item Value Reference Range Interpretation Comments Hgb (test code = Hgb) 14.7 14.0-18.0 [facility] CenterTruohigWLIGWQWQYB1312-84-77 02:50:00 Test Item Value Reference Range Interpretation Comments RBC (test code = RBC) 4.81 4.70-6.10 [facility] CenterKcasjbmMCMQUMXIRA1727-45-13 02:50:00 Test Item Value Reference Range Interpretation Comments WBC (test code = WBC) 16.0 3.7-10.4 [facility] CenterZortazwJXUIJDYULV1992-83-41 02:50:00 Test Item Value Reference Range Interpretation Comments PT (test code = PT) 14.0 s 12.0-14.7 [facility] CenterMzdffotKIJMEQGYMT5307-70-07 02:50:00 Test Item Value Reference Range Interpretation Comments INR (test code = INR) 1.08 1 0.85-1.17 [facility] CenterOwblswyWBLARPXJVL7564-46-18 02:50:00 Test Item Value Reference Range Interpretation Comments Basophils (test code = Basophils) 1.0 <=1.0 [facility] CenterQchzknbEHSJUJHSRM8506-16-02 02:50:00 Test Item Value Reference Range Interpretation Comments Neutrophils # (test code = Neutrophils 12.2 1.5-8.1 #) [facility] CenterLcndtroJHLYLDSWIV5109-64-61 02:50:00 Test Item Value Reference Range Interpretation Comments Monocytes # (test code = Monocytes #) 1.1 <=0.8 [facility] CenterKsphishYQFXRGIICG6097-41-41 02:50:00 Test Item Value Reference Range Interpretation Comments Lymphocytes # (test code = Lymphocytes 2.4 1.0-5.5 #) [facility] CenterXffjqnxQFIFBLIFWD8718-79-22 02:50:00 Test Item Value Reference Range Interpretation Comments Eosinophils # (test code = Eosinophils 0.2 <=0.5 #) [facility] CenterAiltcgjTQRSYFZUNV6547-15-60 02:50:00 Test Item Value Reference Range Interpretation Comments Basophils # (test code = Basophils #) 0.2 <=0.2 [facility] CenterNskrurnQJAXVBAVBS4666-04-13 02:50:00 Test Item Value Reference Range Interpretation Comments Monocytes (test code = Monocytes) 6.6 2.0-12.0 [facility] CenterEzwvwrrIMCRPZUHYR4798-54-96 02:50:00 Test Item Value Reference Range Interpretation Comments Eosinophils (test code = Eosinophils) 0.9 <=4.0 [place] 101628-09-12 02:50:00 Test Item Value Reference Range Interpretation Comments Segs (test code = Segs) 76.2 45.0-75.0 [facility] CenterIcivqjgKEUSYTILWZ2228-69-22 02:50:00 Test Item Value Reference Range Interpretation Comments Lymphocytes (test code = Lymphocytes) 15.3 20.0-40.0 [facility]2018-09-12 02:50:00 Test Item Value Reference Range Interpretation Comments eGFR (test code = eGFR) 94 [facility]2018-09-12 02:50:00 Test Item Value Reference Range Interpretation Comments Glucose Lvl (test code = Glucose Lvl) 146 70-99 [facility]2018-09-12 02:50:00 Test Item Value Reference Range Interpretation Comments AGAP (test code = AGAP) 12.7 10.0-20.0 [facility]2018-09-12 02:50:00 Test Item Value Reference Range Interpretation Comments Calcium Lvl (test code = Calcium Lvl) 8.5 8.5-10.5 [facility]2018-09-12 02:50:00 Test Item Value Reference Range Interpretation Comments Creatinine Lvl (test code = Creatinine 0.88 0.50-1.40 Lvl) [facility]2018-09-12 02:50:00 Test Item Value Reference Range Interpretation Comments Chloride Lvl (test code = Chloride Lvl) 112 95-109 [facility]2018-09-12 02:50:00 Test Item Value Reference Range Interpretation Comments CO2 (test code = CO2) 23 24-32 [facility]2018-09-12 02:50:00 Test Item Value Reference Range Interpretation Comments Sodium Lvl (test code = Sodium Lvl) 143 135-145 [facility]2018-09-12 02:50:00 Test Item Value Reference Range Interpretation Comments Potassium Lvl (test code = Potassium 4.7 3.5-5.1 Lvl) [facility]2018-09-12 02:50:00 Test Item Value Reference Range Interpretation Comments BUN (test code = BUN) 12 7-22 [facility] CenterWegdcdkODCMBZYRLT5514-21-92 02:50:00 Test Item Value Reference Range Interpretation Comments Estimated % Lysis Rapid (test code = 1.8 <=7.5 Estimated % Lysis Rapid) [facility] CenterOvdnpblMWIRMMUGMT6427-20-91 02:50:00 Test Item Value Reference Range Interpretation Comments R-time Rapid (test code = R-time 0.8 min 0.4-0.7 Rapid) [place] 101628-09-12 02:50:00 Test Item Value Reference Range Interpretation Comments K-time Rapid (test code = K-time 1.3 min 0.6-2.3 Rapid) [facility] CenterGwzyhqvMIETXNSBBI2926-33-07 02:50:00 Test Item Value Reference Range Interpretation Comments Angle Rapid (test code = Angle 72 degrees 64-80 Rapid) [facility] CenterNymonnpYYNZKLOVTW1714-00-25 02:50:00 Test Item Value Reference Range Interpretation Comments ACT (TEG) Rapid (test code = ACT (TEG) 128 s 86-118 Rapid) [facility] CenterGcnrzhbWOQPCFCQZO7440-85-34 02:50:00 Test Item Value Reference Range Interpretation Comments Split Point Rapid (test code = Split 0.6 min Point Rapid) [facility] CenterLamgfxnVQKVPOFVJV2362-18-66 02:50:00 Test Item Value Reference Range Interpretation Comments G-value Rapid (test code = G-value 11.5 5.0-11.6 Rapid) [facility] CenterHqrixulMTSIPDMBPT2244-66-61 02:50:00 Test Item Value Reference Range Interpretation Comments Max Amplitude Rapid (test code = Max 70 mm 52-71 Amplitude Rapid) [facility] CenterLibrhbuCXMHCSJZDZ9612-04-95 02:50:00 Test Item Value Reference Range Interpretation Comments Platelet (test code = Platelet) 196 133-450 [facility] CenterAtbrkhkXUBTHXBSVI4847-51-18 02:50:00 Test Item Value Reference Range Interpretation Comments MPV (test code = MPV) 11.6 7.4-10.4 [facility] CenterRdacrueKOEDMNFFND4984-98-52 02:50:00 Test Item Value Reference Range Interpretation Comments Hct (test code = Hct) 44.4 42.0-54.0 [facility] CenterNgdnpymGOBYYKYZAW6671-29-92 02:50:00 Test Item Value Reference Range Interpretation Comments RDW (test code = RDW) 13.4 11.5-14.5 [facility] CenterSpgwvvwQJREOMQGSS9169-40-32 02:50:00 Test Item Value Reference Range Interpretation Comments MCHC (test code = MCHC) 33.2 32.0-36.0 [facility]
[2023-04-04] MEDS ORDERED: DOXYCYCLINE 100 MG CAP PO ONE (13:18)
[2023-04-04] MEDS ORDERED: METFORMIN HCL 500 MG TAB ONE (13:18)
[2023-04-04] MEDS ORDERED: LIDOCAINE 1% MPF 30 ML VIAL ONE (13:19)
[2023-04-04 15:33] LABS: Hematocrit 45.7 % (39.6-49.0); Lymphocytes % 17.5 % (15.3-44.8); MCV 92.6 fL (80-100); Platelets 166 thou/uL (152-406); RBC Red Blood Cell Count 4.94 M/uL (4.33-5.43)
[2023-04-04] MEDS ORDERED: VANCOMYCIN 1 GM/VIAL ONE (15:42)
[2023-04-04] MEDS ORDERED: NA CHLORIDE 0.9% 1,000 ML ONE (15:42)
[2023-04-04] MEDS ORDERED: NA CHLORIDE 0.9% 250 ML ONE (15:42)
[2023-04-04] MEDS ORDERED: NA CHLORIDE 0.9% 100 ML ONE (15:42)
[2023-04-04] MEDS ORDERED: PIPERACIL/TAZO 3.375 GM VIAL IV ONE (15:42)
[2023-04-04] MEDS ORDERED: TDAP (DIPHTH,PERTUSS(ACELL),TET VAC) 0.5 ML VIAL IMVAC ONE (15:42)
[2023-04-04] MEDS ORDERED: MORPHINE 4 MG/ML SYR ONE (15:44)
[2023-04-04 15:57] LABS: Albumin 3.5 g/dL (3.4-5.0); Bilirubin Total 0.7 mg/dL (0.2-1.0); Potassium 3.8 mEq/L (3.5-5.1)
[2023-04-04] MEDS ORDERED: DIPHENHYDRAMINE 50 MG/ML VIAL ONE (16:11)
--- NOTE | 2023-04-04 16:39 | RAD REPORT ---
EXAM DESCRIPTION: CT - CTFBWCON CLINICAL HISTORY: FACIAL PAIN Trauma, facial pain COMPARISON: <Comparisons> TECHNIQUE: Axial 2 mm thick images of the face were obtained with sagittal and coronal reconstructio n images. All CT scans are performed using dose optimization technique as appropriate and may include automated exposure control or mA/KV adjustment according to patient size. FINDINGS: Mildly displaced fracture is seen involving the right mandibular ramus. Soft tissue swelli ng is present with focal soft tissue wound noted anterior mandible soft tissues. The globes and orbital contents are grossly unremarkable.The paranasal sinuses and mastoids are clear . IMPRESSION: Mildly displaced fracture of the right mandibular ramus.
--- NOTE | 2023-04-04 17:23 | ER ---
Nurse's Notes [facility] Name: Eric Nash Age: 62 yrs Sex: Male : 1960 Arrival Date: 04/04/2023 Time: 10:13 Bed 19 Private MD: Diagnosis: Laceration with foreign body of lip and oral cavity;Fracture of mandible;Diabetes mellitus due to underlying condition with hyperglycemia;Essential (primary) hypertension Presentation: 04/04 10:38 Chief complaint: Patient states: a hammer fell off a ladder and hit him on his lower ap3 teeth on Wednesday04/02/2023. patient presents to the ED with an open wound from the injury to the lower lip. Coronavirus screen: At this time, the client does not indicate any symptoms associated with coronavirus-19. Ebola Screen: No symptoms or risks identified at this time. Initial Sepsis Screen: Does the patient meet any 2 criteria? No. Patient's initial sepsis screen is negative. Does the patient have a suspected source of infection? Yes: Skin breakdown/wound. Risk Assessment: Do you want to hurt yourself or someone else? Patient reports no desire to harm self or others. Onset of symptoms was April 02, 2023. 10:38 Method Of Arrival: Ambulatory ap3 10:38 Acuity: ALANA 3 ap3 Triage Assessment: 10:40 General: Appears in no apparent distress. Behavior is calm, cooperative, appropriate ap3 for age. Pain: Complains of pain in lower vermilion border Pain currently is 7 out of 10 on a pain scale. Pain began 2-3 days ago. Neuro: Level of Consciousness is awake, alert, obeys commands, Oriented to person, place, time, situation. Cardiovascular: Patient's skin is warm and dry. Respiratory: Airway is patent Respiratory effort is even, unlabored, Respiratory pattern is regular, symmetrical. Derm: Wound noted lower vermilion border. Historical: - Allergies: 10:40 NKA; ap3 - PMHx: 10:40 Arthritis; Diabetes - NIDDM; Hypertension; ap3 - Immunization history:: Client reports receiving the 2nd dose of the Covid vaccine, Last tetanus immunization: unknown. - Social history:: Smoking status: Patient reports the use of cigarette tobacco products, smokes one pack cigarettes per day. Screenin:41 [facility] ED Fall Risk Assessment (Adult) History of falling in the last 3 months, ap3 including since admission No falls in past 3 months (0 pts). Abuse screen: Denies threats or abuse. Nutritional screening: No deficits noted. Tuberculosis screening: No symptoms or risk factors identified. Assessment: 14:06 General: Appears uncomfortable, well groomed, well developed, well nourished, Behavior me1 is calm, cooperative, appropriate for age, Reports a hammer fell off a ladder and hit him on his lower teeth on Wednesday04/02/2023. patient presents to the ED with an open wound from the injury to the lower lip. Pain: Complains of pain in chin and mouth and lower vermilion border 14:06 Pain: Pain does not radiate. Pain currently is 7 out of 10 on a pain scale. Quality of me1 pain is described as aching, Pain began 2-3 days ago. Is continuous. Neuro: Level of Consciousness is awake, alert, obeys commands, Oriented to person, place, time, situation, Appropriate for age. Cardiovascular: Capillary refill < 3 seconds Patient's skin is warm and dry. Respiratory: Airway is patent Respiratory effort is even, unlabored, Respiratory pattern is regular, symmetrical. EENT: a hammer fell off a ladder and hit him on his lower teeth on Wednesday04/02/2023. patient presents to the ED with an open wound from the injury to the lower lip . Derm: Wound noted chin and mouth and lower vermilion border. Vital Signs: 10:38 BP 159 / 90; Pulse 79; Resp 18; Temp 98; Pulse Ox 100% ; Weight 74.84 kg; Pain 7/10; ap3 13:11 Pulse 65; Resp 18; Pulse Ox 93% on R/A; ld1 14:08 BP 175 / 96; Pulse 67; Resp 18; Pulse Ox 89% on R/A; me1 14:08 Pulse Ox 95% on 4 lpm NC; me1 14:30 BP 192 / 102; Pulse 63; Resp 18; Pulse Ox 94% on R/A; me1 15:00 BP 205 / 95; Pulse 63; Resp 18; Pulse Ox 100% on 2 lpm NC; me1 15:30 BP 192 / 98; Pulse 66; Resp 16; Pulse Ox 100% ; me1 16:00 BP 201 / 101; Pulse 69; Resp 18; Pulse Ox 100% on 2 lpm NC; me1 16:48 BP 200 / 89; ld1 17:13 BP 207 / 116; Pulse 58; Resp 18; Pulse Ox 100% on 2 lpm NC; ld1 17:18 BP 196 / 94; Pulse 75; Resp 16; Pulse Ox 100% on 2 lpm NC; ld1 17:27 BP 158 / 90; Pulse 102; ld1 10:38 Pain Scale: Adult ap3 ED Course: 10:14 Patient arrived in ED. rg4 10:40 Triage completed. ap3 10:41 Arm band placed on right wrist. ap3 11:51 Halie Serrato FNP-C is PHCP. snw 11:51 Solo Garcia MD is Attending Physician. snw 14:04 Antionette Ramirez, ARMANDO is Primary Nurse. me1 14:06 Patient has correct armband on for positive identification. Bed in low position. Call me1 light in reach. Side rails up X 1. Provided Education on: POC. Verbalized understanding. . 14:06 No provider procedures requiring assistance completed. me1 15:24 Inserted saline lock: 20 gauge in right forearm, using aseptic technique. me1 15:25 CMP Sent. me1 15:25 CBC with Diff Sent. me1 16:30 CT Facial Bones W/ Con \T\ Mpr In Process Unspecified. EDMS 16:45 initiated a transfer with Demetris Rivera from the [facility] Transfer center/. eb 16:49 per Demetris Rivera [facility] is at capacity and will have to decline. eb 16:49 initiated a transfer with Lorie Morocho Rn from the [facility] Transfer [place]. eb 17:00 connected the [employer] material control analyst for [facility] with Halie Oquendo for patient transfer eb consultation. 17:14 administrative approval given by Lorie Morocho Rn/ patient has been accepted to [facility] ED. Dr. Gilda Cortes has accepted the patient in transfer report to be called to [phone]. 17:37 Patient transferred, IV remains in place. ld1 Administered Medications: 13:11 Drug: Doxycycline PO 100 mg PO once Route: PO; ld1 14:05 Follow up: Response: No adverse reaction me1 13:11 Drug: metFORMIN PO 500 mg PO once; with meal or snack Route: PO; ld1 14:05 Follow up: Response: No adverse reaction me1 13:11 Drug: Lidocaine Infiltration (1 %) 20 ml 20 ml Infiltration once; to bedside {Note: ld1 Administered by GUERO Gasca.} Volume: 20 ml; Route: Infiltration; 15:46 Drug: NS 0.9% IV 1000 ml IV at 125 ml/hr continuous Route: IV; Rate: 125 ml/hr; Site: me1 right antecubital; 18:07 Follow up: IV Status: Infusion continued upon transfer ld1 15:47 Drug: Boostrix Tdap IM 0.5 ml IM once; as a single dose {Note: [place] LOT # me1 [id number] exp 10/07/24.} Route: IM; Site: right deltoid; 16:15 Follow up: Response: No adverse reaction me1 15:48 Drug: morphine IVP or IV 4 mg IVP once over 4 mins Route: IVP; Infused Over: 4 mins; me1 Site: right antecubital; 15:48 Follow up: Response: Adverse reaction, Physician notified; hives and itching noted to me1 right arm and right chest. 15:53 Drug: Piperacillin-Tazobactam IVPB 3.375 grams IVPB once over 60 mins; (mix in NS 100 me1 mL) Route: IVPB; Infused Over: 60 mins; Site: right antecubital; 17:12 Follow up: IV Status: Completed infusion ld1 17:12 Follow up: Response: No adverse reaction ld1 16:01 Drug: diphenhydrAMINE IVP 25 mg IVP once Route: IVP; Site: right antecubital; me1 16:15 Follow up: Response: No adverse reaction; Marked relief of symptoms me1 17:12 Drug: vancoMYCIN IVPB 1 grams IVPB once over 2 hrs Route: IVPB; Infused Over: 2 hrs; ld1 Site: right antecubital; 18:11 Follow up: IV Status: Infusion continued upon transfer ld1 17:15 Drug: hydrALAZINE IVP 20 mg IVP once; For SBP > 140 mmHg. Hold if less than 120 mmHg. ld1 Route: IVP; Site: right antecubital; 17:24 Follow up: Response: No adverse reaction ld1 Medication: 15:52 Vaccine Information Statement (VIS) provided today. Questions and/or concerns me1 addressed. VIS edition date: December 20, 2020. Intake: Outcome: 17:23 ER care complete, transfer ordered by MD. torres 17:31 Transferred by ground EMS to [facility], Transfer form completed. Note: ld1 Report given to ARMANDO Greenberg 17:31 Condition: stable 17:31 Instructed on the need for transfer, 18:20 Patient left the ED. hb Signatures: Dispatcher [employer] EDHalie Scott, MACHINE II COREMAKER-C MACHINE II COREMAKER-Csnw Linda Mai, RN RN Alyson Scott rg4 Anna Agarwal RN RN ap3 Soni Galarza Lauren RN RN ld1 Antionette Ramirez RN RN me1 Corrections: (The following items were deleted from the chart) 13:12 13:11 BP 184 / 101; Pulse 65bpm; Resp 18bpm; Pulse Ox 93% RA; ld1 ld1 14:05 10:38 Chief complaint: Patient states: a hammer fell off a ladder and hit him on his me1 lower teeth on Wednesday04/02/2023. patient presents to the ED with an open wound from the injury to the lower lip ap3 15:47 15:47 Boostrix Tdap IM 0.5 ml IM in right deltoid me1 me1
--- NOTE | 2023-04-04 17:23 | EDPHYS ---
Physician Documentation [facility] Name: Eric Nash Age: 62 yrs Sex: Male : 1960 Arrival Date: 04/04/2023 Time: 10:13 Bed 19 Private MD: FLORA Physician Solo Garcia HPI: 04/04 12:24 This 62 yrs old Male presents to ER via Ambulatory with complaints of Mouth snw Injury. 12:24 The patient presents with lip lac. The problem is located in the chin. Onset: The snw symptoms/episode began/occurred 2 day(s) ago, and became persistent. Duration: The symptoms are continuous. Severity of symptoms: At their worst the symptoms were moderate, severe. The patient has not experienced similar symptoms in the past. The patient has not recently seen a physician. 14:30 after using 1% lidocaine for comfort with exam of chin, it is noted that an external snw laceration to mid chin is 1.5" thru and thru to teeth, the mucosa between the laceration is green and foul smelling, the injury tracks distally inside the mouth and exits at tip of chin in another 1" laceration. Historical: - Allergies: 10:40 NKA; ap3 - PMHx: 10:40 Arthritis; Diabetes - NIDDM; Hypertension; ap3 - Immunization history:: Client reports receiving the 2nd dose of the Covid vaccine, Last tetanus immunization: unknown. - Social history:: Smoking status: Patient reports the use of cigarette tobacco products, smokes one pack cigarettes per day. ROS: 12:21 Constitutional: Negative for fever, chills, and weight loss, Eyes: Negative for injury, snw pain, redness, and discharge, ENT: Negative for injury, pain, and discharge, Neck: Negative for injury, pain, and swelling, Cardiovascular: Negative for chest pain, palpitations, and edema, Respiratory: Negative for shortness of breath, cough, wheezing, and pleuritic chest pain, Abdomen/GI: Negative for abdominal pain, nausea, vomiting, diarrhea, and constipation, Back: Negative for injury and pain, : Negative for injury, bleeding, discharge, and swelling, MS/Extremity: Negative for injury and deformity, Skin: Negative for rash and discoloration, + lip laceration Neuro: Negative for headache, weakness, numbness, tingling, and seizure, Psych: Negative for depression, anxiety, suicide ideation, homicidal ideation, and hallucinations, Exam: 12:20 Constitutional: This is a well developed, well nourished patient who is awake, alert, snw and in no acute distress. Eyes: Pupils equal round and reactive to light, extra-ocular motions intact. Lids and lashes normal. Conjunctiva and sclera are non-icteric and not injected. Cornea within normal limits. Periorbital areas with no swelling, redness, or edema. ENT: Nares patent. No nasal discharge, no septal abnormalities noted. Tympanic membranes are normal and external auditory canals are clear. Oropharynx with no redness, swelling, or masses, exudates, or evidence of obstruction, uvula midline. Mucous membranes moist. Neck: Trachea midline, no thyromegaly or masses palpated, and no cervical lymphadenopathy. Supple, full range of motion without nuchal rigidity, or vertebral point tenderness. No Meningismus. Chest/axilla: Normal chest wall appearance and motion. Nontender with no deformity. No lesions are appreciated. Cardiovascular: Regular rate and rhythm with a normal S1 and S2. No gallops, murmurs, or rubs. Normal PMI, no JVD. No pulse deficits. Respiratory: Lungs have equal breath sounds bilaterally, clear to auscultation and percussion. No rales, rhonchi or wheezes noted. No increased work of breathing, no retractions or nasal flaring. Abdomen/GI: Soft, non-tender, with normal bowel sounds. No distension or tympany. No guarding or rebound. No evidence of tenderness throughout. Back: No spinal tenderness. No costovertebral tenderness. Full range of motion. Skin: Warm, dry with normal turgor. Normal color with no rashes, no lesions, and no evidence of cellulitis. MS/ Extremity: Pulses equal, no cyanosis. Neurovascular intact. Full, normal range of motion. Neuro: Awake and alert, GCS 15, oriented to person, place, time, and situation. Cranial nerves II-XII grossly intact. Motor strength 5/5 in all extremities. Sensory grossly intact. Cerebellar exam normal. Normal gait. Psych: Awake, alert, with orientation to person, place and time. Behavior, mood, and affect are within normal limits. 12:20 Head/face: Noted is a laceration(s), that is deep, 5 cm(s), of the chin, of the 2 day old full thickness overriding lip lac, Vital Signs: 10:38 BP 159 / 90; Pulse 79; Resp 18; Temp 98; Pulse Ox 100% ; Weight 74.84 kg; Pain 7/10; ap3 13:11 Pulse 65; Resp 18; Pulse Ox 93% on R/A; ld1 14:08 BP 175 / 96; Pulse 67; Resp 18; Pulse Ox 89% on R/A; me1 14:08 Pulse Ox 95% on 4 lpm NC; me1 14:30 BP 192 / 102; Pulse 63; Resp 18; Pulse Ox 94% on R/A; me1 15:00 BP 205 / 95; Pulse 63; Resp 18; Pulse Ox 100% on 2 lpm NC; me1 15:30 BP 192 / 98; Pulse 66; Resp 16; Pulse Ox 100% ; me1 16:00 BP 201 / 101; Pulse 69; Resp 18; Pulse Ox 100% on 2 lpm NC; me1 16:48 BP 200 / 89; ld1 17:13 BP 207 / 116; Pulse 58; Resp 18; Pulse Ox 100% on 2 lpm NC; ld1 17:18 BP 196 / 94; Pulse 75; Resp 16; Pulse Ox 100% on 2 lpm NC; ld1 17:27 BP 158 / 90; Pulse 102; ld1 10:38 Pain Scale: Adult ap3 MDM: 11:56 Patient medically screened. snw 12:22 Differential diagnosis: lip laceration. Data reviewed: vital signs, nurses notes. snw 14:50 Historians other than the Patient: Friend: Co-worker. Care significantly affected by snw the following chronic conditions: Diabetes, Hypertension. Counseling: I had a detailed discussion with the patient and/or guardian regarding the historical points, exam findings, and any diagnostic results supporting the discharge/admit diagnosis, the need to transfer to another facility, for higher level of care. 16:45 ED course: [facility] Dr. Betina Schneider willing to follow up with pt on outpatient basis per [facility] Dr. Shabbir Adam on Wednesday. Recommends ground diet, chlorhexidine rinses, and augmentin for 2 weeks. Lalit on the line for report.. 17:15 Management of patient was discussed with the following: sent photos to Dr. Audrey Cortes to replaced by [facility] encripted email [email or web address]. Dr. Cortes kindly accept pt in transfer.. 04/04 12:32 Order name: Glucose, Ancillary Testing; Complete Time: 12:42 EDMS 04/04 12:43 Interpretation: Abnormal: GLUC,ANCIL 235. snw 04/04 14:50 Order name: CBC with Diff; Complete Time: 15:45 snw 04/04 16:11 Interpretation: Normal except: WBC 11.6. snw 04/04 14:50 Order name: CMP; Complete Time: 16:02 snw 04/04 16:12 Interpretation: Within normal limits: Blood sugar improved. snw 04/04 14:50 Order name: CT Facial Bones W/ Con \\T\\ Mpr; Complete Time: 16:43 snw 04/04 16:12 Interpretation: Abnormal. snw 04/04 12:23 Order name: Chromic, Sutures; Complete Time: 13:11 snw 04/04 12:23 Order name: Dressing - Wound; Complete Time: 13:11 snw 04/04 12:23 Order name: Gloves, Sterile; Complete Time: 13:11 snw 04/04 12:23 Order name: Prolene, Sutures; Complete Time: 13:11 snw 04/04 12:23 Order name: Setup Suture Tray; Complete Time: 13:11 snw 04/04 17:23 Order name: NPO; Complete Time: 17:25 snw Administered Medications: 13:11 Drug: Doxycycline PO 100 mg PO once Route: PO; ld1 14:05 Follow up: Response: No adverse reaction me1 13:11 Drug: metFORMIN PO 500 mg PO once; with meal or snack Route: PO; ld1 14:05 Follow up: Response: No adverse reaction me1 13:11 Drug: Lidocaine Infiltration (1 %) 20 ml 20 ml Infiltration once; to bedside {Note: ld1 Administered by GUERO Gasca.} Volume: 20 ml; Route: Infiltration; 15:46 Drug: NS 0.9% IV 1000 ml IV at 125 ml/hr continuous Route: IV; Rate: 125 ml/hr; Site: me1 right antecubital; 18:07 Follow up: IV Status: Infusion continued upon transfer ld1 15:47 Drug: Boostrix Tdap IM 0.5 ml IM once; as a single dose {Note: [employer] LOT # [id number] exp 10/07/24.} Route: IM; Site: right deltoid; 16:15 Follow up: Response: No adverse reaction me1 15:48 Drug: morphine IVP or IV 4 mg IVP once over 4 mins Route: IVP; Infused Over: 4 mins; me1 Site: right antecubital; 15:48 Follow up: Response: Adverse reaction, Physician notified; hives and itching noted to me1 right arm and right chest. 15:53 Drug: Piperacillin-Tazobactam IVPB 3.375 grams IVPB once over 60 mins; (mix in NS 100 me1 mL) Route: IVPB; Infused Over: 60 mins; Site: right antecubital; 17:12 Follow up: IV Status: Completed infusion ld1 17:12 Follow up: Response: No adverse reaction ld1 16:01 Drug: diphenhydrAMINE IVP 25 mg IVP once Route: IVP; Site: right antecubital; me1 16:15 Follow up: Response: No adverse reaction; Marked relief of symptoms me1 17:12 Drug: vancoMYCIN IVPB 1 grams IVPB once over 2 hrs Route: IVPB; Infused Over: 2 hrs; ld1 Site: right antecubital; 18:11 Follow up: IV Status: Infusion continued upon transfer ld1 17:15 Drug: hydrALAZINE IVP 20 mg IVP once; For SBP > 140 mmHg. Hold if less than 120 mmHg. ld1 Route: IVP; Site: right antecubital; 17:24 Follow up: Response: No adverse reaction ld1 Disposition Summary: 04/04/23 17:23 Transfer Ordered Notes: Transfer Location: [facility] snw Reason: Higher level of care snw Condition: Stable snw Problem: new snw Symptoms: are unchanged snw Accepting Physician: Dr. Louie Cortes(04/04/23 18:20) hb Diagnosis - Laceration with foreign body of lip and oral cavity snw - Fracture of mandible snw - Diabetes mellitus due to underlying condition with hyperglycemia snw - Essential (primary) hypertension snw Forms: - Medication Reconciliation Form snw - SBAR form snw Signatures: Dispatcher [employer] EDMS Halie Serrato, PCT-C PCT-Csnw Linda Mai, RN RN hb Anna Agarwal, RN RN ap3 Abi Girard RN RN ld1 Antionette Ramirez RN RN me1 Corrections: (The following items were deleted from the chart) 18:20 17:23 Dr. Louie mouracox [place]
[2023-04-04] MEDS ORDERED: HYDRALAZINE HCL 20 MG/ML VIAL ONE (17:28)
[2023-04-04 18:41] VITALS: TEMP 98
[2023-04-04 18:48] VITALS: O2SAT 100
[2023-04-04 18:57] VITALS: BP 158/90
== END 2023-04-04 18:20 | disposition short-term general hospital (02) ==
LOC: ER 10:13
DX: S02.609A Fracture of mandible, unspecified, initial encounter for closed fracture (principal); S01.521A Laceration with foreign body of lip, initial encounter; S01.522A Laceration with foreign body of oral cavity, initial encounter; W20.8XXA Other cause of strike by thrown, projected or falling object, initial encounter; E11.65 Type 2 diabetes mellitus with hyperglycemia; I10 Essential (primary) hypertension; M19.90 Unspecified osteoarthritis, unspecified site; F17.210 Nicotine dependence, cigarettes, uncomplicated
CPT/HCPCS: 96365; 96367; 85025; 36415; 82947; 80053; 70487; 76377; 96375; 96372; 99285; Q9967; J0360; J1200; J2001; J2543; J7050; J7030

== ENCOUNTER 2024-05-12 15:25 | Emergency (ER) | payer OTHER ==
[2024-05-12 16:07] LABS: Absolute Basophils 0.1 K/uL (0-0.5); Absolute Eosinophils 0.2 K/uL (0-0.5); Absolute Lymphocytes (CBC) 1.9 K/uL (0.7-4.9); Absolute Monocytes 0.7 K/uL (0.1-1.3); Basophils % 0.9 % (0-1.3); Hematocrit 44.6 % (39.6-49.0); Hemoglobin 14.7 g/dL (13.6-17.9); Lymphocytes % 19.4 % (15.3-44.8); MCH 30.8 pg (27.0-35.0); MCV 93.4 fL (80-100); MPV 10.6 fL (7.6-11.3); Monocytes % 7.2 % (3.3-12.3); Neutrophils % 70.5 % (41.7-73.7); Platelets 206 thou/uL (152-406); RBC Red Blood Cell Count 4.78 M/uL (4.33-5.43); Red Cell Distribution Width 13.4 % (12.1-15.2)
[2024-05-12 16:20] LABS: Anion Gap 8.7 mEq/L (5.0-15.0); Potassium 3.7 mEq/L (3.5-5.1)
[2024-05-12] MEDS ORDERED: methocarbamoL 500 MG TAB ONE (16:32)
[2024-05-12] MEDS ORDERED: KETOROLAC 30 MG/ML INJ ONE (16:33)
--- NOTE | 2024-05-12 17:28 | RAD REPORT ---
EXAM: C Spine Wo Con HISTORY: Pain;Numbness/tingling COMPARISON: 07/28/2019 TECHNIQUE: Multiple contiguous axial images were obtained in a CT of the cervical spine without IV co ntrast. Sagittal and coronal reformats were performed. One or more of the following dose reduction techniques were used: Automated exposure control, adjustment of the mA and kV according to patient si ze, and iterative reconstruction. Unless otherwise specified, incidental findings do not require dedicated imaging follow-up. FINDINGS: The vertebral bodies and intervertebral discs demonstrate normal height and alignment without fractur e or subluxation. Some straightening of normal cervical lordosis noted, which could be positional or secondary to muscle spasm. Mild to moderate multilevel degenerative changes with facet, endplate, and uncovertebral joint remode ling, contributing to up to moderate degrees of neural foraminal narrowing most notably bilaterally at C4-5 and at C6-7, worse on the right. No prevertebral soft tissue swelling is seen. Normal atlantoodontoid relationship, with mild degenerative changes. The lung apices are unremarkable. The cervical soft tissues are unremarkable. IMPRESSION: No evidence of acute osseous abnormality of the cervical spine. Up to moderate degenerative changes as above. If there is concern for radiculopathy, dedicated cervic al spine MRI evaluation would be more helpful for evaluation of the neural structures.
--- NOTE | 2024-05-12 17:34 | EDPHYS ---
Physician Documentation [facility] Name: Eric Nash Age: 63 yrs Sex: Male : 1960 Arrival Date: 05/12/2024 Time: 15:25 Bed 4 Private MD: ED Physician Karlos Fall HPI: 05/12 15:51 This 63 yrs old Male presents to ER via Ambulatory with complaints of Neck ec2 Pain, >24Hrs Old, Shoulder Pain. 15:51 Patient arrives today for evaluation of neck pain ongoing for several months with ec2 worsening pain and paresthesias in the bilateral upper extremities. Reports no previous neck surgeries. Is taken Tylenol with some improvement in symptoms. Pain is worsened with positional movements.. Historical: - Allergies: 15:39 NKA; db - PMHx: 15:39 Arthritis; Diabetes - NIDDM; Hypertension; db - Immunization history:: Adult Immunizations unknown. - Infectious Disease History:: Denies. - Social history:: Smoking status: Patient reports the use of cigarette tobacco products, smokes one-half pack cigarettes per day, Patient uses alcohol, occasionally. ROS: 15:51 Constitutional: as per hpi ec2 Exam: 15:51 Constitutional: GEN: NAD Head: atraumatic Eyes: EOMI Ears: External ears are ec2 normal. CV: regular rate LUNGS: no respiratory distress ABD: non-distended SKIN: no evidence of rashes MSK: no evidence of trauma, mild C-spine TTP without deformities. Neuro: Strength intact in bilateral upper extremities, sensation intact as well. Vital Signs: 15:37 BP 181 / 115; Pulse 88; Resp 18; Temp 97.8; Pulse Ox 99% ; Weight 65 kg; Height 5 ft. 8 db in. ; 17:11 BP 174 / 92; Pulse 69; Resp 18; Pulse Ox 98% on R/A; ld1 17:54 BP 185 / 98; Pulse 67; Resp 16; Pulse Ox 98% ; cm10 15:37 Body Mass Index 21.22 (65.00 kg, 175 cm) db MDM: 15:48 Medical Screening Exam initiated ec2 15:51 Data reviewed: vital signs, nurses notes. ED course: Patient arrives today for ec2 evaluation of neck pain and paresthesias in the bilateral upper extremities. Examination yields C-spine TTP. Will obtain C-spine imaging, will obtain lab work and will treat the patient's pain.. 17:33 ED course: CT of the C-spine shows significant degenerative changes. Patient not on any ec2 acute traumatic pathology at the onset of symptoms and symptoms been ongoing for greater than several months, patient to follow-up outpatient for MR of the C-spine. Will discharge home, will also give information to follow-up with orthopedic surgery. Instructed follow-up PCP for outpatient MRI.. 05/12 15:50 Order name: CBC with Diff ec2 05/12 15:50 Order name: BMP; Complete Time: 16:27 ec2 05/12 15:50 Order name: CT C Spine; Complete Time: 17:30 ec2 05/12 15:50 Order name: IV; Complete Time: 16:06 ec2 Administered Medications: 16:37 Drug: Ketorolac IVP 15 mg IVP once Route: IVP; Site: left antecubital; ld1 17:00 Follow up: Response: No adverse reaction cm10 16:37 Drug: Methocarbamol PO 500 mg PO once Route: PO; ld1 17:30 Follow up: Response: No adverse reaction cm10 Disposition Summary: 05/12/24 17:33 Discharge Ordered Notes: Location: Home ec2 Condition: Stable ec2 Diagnosis - Radiculopathy, cervical region ec2 Followup: ec2 - With: Pacheco Alanis MD - When: - Reason: Recheck today's complaints Discharge Instructions: - Discharge Summary Sheet ec2 - Cervical Radiculopathy ec2 Forms: - Medication Reconciliation Form ec2 - Antibiotic Education ec2 - Prescription Opioid Use ec2 - Patient Portal Instructions ec2 - Leadership Thank You Letter ec2 Prescriptions: - gabapentin 300 mg Oral capsule - take 1 capsule ORAL route every 12 hours; 30 capsule; Refills: 0, Product ec2 Selection Permitted - methocarbamol 500 mg Oral tablet - take 1 tablet ORAL route 4 times per day; 30 tablet; Refills: 0, Product ec2 Selection Permitted Signatures: Dispatcher [employer] Abi Qiu RN RN ld1 Gila Elizondo RN RN Karlos Vivar MD MD ec2 Vesna Campos RN cm10
--- NOTE | 2024-05-12 17:34 | ER ---
Nurse's Notes [facility] Name: Eric Nash Age: 63 yrs Sex: Male : 1960 Arrival Date: 05/12/2024 Time: 15:25 Bed 4 Private MD: Diagnosis: Radiculopathy, cervical region Presentation: 05/12 15:37 Chief complaint: Patient states: HEAD AND NECK PAIN RADIATING INTO RIGHT ARM X 4 db MONTHS. Coronavirus screen: Client denies travel out of the [place] in the last 14 days. At this time, the client does not indicate any symptoms associated with coronavirus-19. Ebola Screen: Patient negative for fever greater than or equal to 101.5 degrees Fahrenheit, and additional compatible Ebola Virus Disease symptoms Patient denies exposure to infectious person. Patient denies travel to an Ebola-affected area in the 21 days before illness onset. No symptoms or risks identified at this time. Initial Sepsis Screen: Does the patient meet any 2 criteria? No. Patient's initial sepsis screen is negative. Does the patient have a suspected source of infection? No. Patient's initial sepsis screen is negative. Risk Assessment: Do you want to hurt yourself or someone else? Patient reports no desire to harm self or others. Onset of symptoms was May 09, 2024. 15:37 Method Of Arrival: Ambulatory db 15:37 Acuity: ALANA 3 db Triage Assessment: 15:39 General: Appears in no apparent distress. comfortable, Behavior is calm, cooperative. db Pain: Complains of pain in head and neck. Neuro: Level of Consciousness is awake, alert, obeys commands, Oriented to person, place, time, situation. Respiratory: Airway is patent Respiratory effort is even, unlabored, Respiratory pattern is regular, symmetrical. Historical: - Allergies: 15:39 NKA; db - PMHx: 15:39 Arthritis; Diabetes - NIDDM; Hypertension; db - Immunization history:: Adult Immunizations unknown. - Infectious Disease History:: Denies. - Social history:: Smoking status: Patient reports the use of cigarette tobacco products, smokes one-half pack cigarettes per day, Patient uses alcohol, occasionally. Screenin:[address] [facility] ED Fall Risk Assessment (Adult) History of falling in the last 3 months, ld1 including since admission No falls in past 3 months (0 pts) Confusion or Disorientation No (0 pts) Intoxicated or Sedated No (0 pts) Impaired Gait No (0 pts) Mobility Assist Device Used No (0 pt) Altered Elimination No (0 pt) Score/Fall Risk Level 0 - 2 = Low Risk Oriented to surroundings, Maintained a safe environment, Educated pt \T\ family on fall prevention, incl call for assistance when getting out of bed, Assessed \T\ reinforced patient's understanding of fall precautions, Provided non-skid footwear, Hourly rounding (assess needs \T\ fall precautionary measures) done, Used ambulatory aids as needed (educated on \T\ assisted with), Used gait belt as appropriate. Abuse screen: Denies threats or abuse. Denies injuries from another. Nutritional screening: No deficits noted. Tuberculosis screening: No symptoms or risk factors identified. Assessment: 17:08 General: Appears in no apparent distress. comfortable, Behavior is calm, cooperative, ld1 appropriate for age. Pain: Complains of pain in scalp and neck Pain radiates to right arm Pain currently is 8 out of 10 on a pain scale. Quality of pain is described as tingling, throbbing, Pain began 4 month. Neuro: Level of Consciousness is awake, alert, obeys commands, Oriented to person, place, time, situation, Appropriate for age. Cardiovascular: Capillary refill < 3 seconds Patient's skin is warm and dry. Respiratory: Airway is patent Respiratory effort is even, unlabored. GI: Abdomen is flat, non-distended. : No signs and/or symptoms were reported regarding the genitourinary system. EENT: No signs and/or symptoms were reported regarding the EENT system. Derm: No signs and/or symptoms reported regarding the dermatologic system. Musculoskeletal: No signs and/or symptoms reported regarding the musculoskeletal system. Vital Signs: 15:37 BP 181 / 115; Pulse 88; Resp 18; Temp 97.8; Pulse Ox 99% ; Weight 65 kg; Height 5 ft. 8 db in. ; 17:11 BP 174 / 92; Pulse 69; Resp 18; Pulse Ox 98% on R/A; ld1 17:54 BP 185 / 98; Pulse 67; Resp 16; Pulse Ox 98% ; cm10 15:37 Body Mass Index 21.22 (65.00 kg, 175 cm) db ED Course: 15:26 Patient arrived in ED. ec2 15:26 Karlos Fall MD is Attending Physician. ec2 15:39 Triage completed. db 15:39 Arm band placed on. db 15:40 Arm band placed on Patient placed in an exam room. db 16:06 BMP Sent. nh2 16:06 CBC with Diff Sent. nh2 16:06 Inserted saline lock: 22 gauge in left antecubital area, using aseptic technique. Blood nh2 collected. Flushed with 10 mL NS. 16:26 CT C Spine In Process Unspecified. EDMS 16:28 Abi Girard, RN is Primary Nurse. ld1 17:08 Patient has correct armband on for positive identification. Placed in gown. Bed in low ld1 position. Call light in reach. Side rails up X2. Pulse ox on. NIBP on. Door closed. Noise minimized. 17:08 No provider procedures requiring assistance completed. ld1 17:33 Pacheco Alanis MD is Referral Physician. ec2 17:54 Provided Education on: Follow-up instructions. cm10 17:54 IV discontinued, intact, bleeding controlled, No redness/swelling at site. Pressure cm10 dressing applied. Administered Medications: 16:37 Drug: Ketorolac IVP 15 mg IVP once Route: IVP; Site: left antecubital; ld1 17:00 Follow up: Response: No adverse reaction cm10 16:37 Drug: Methocarbamol PO 500 mg PO once Route: PO; ld1 17:30 Follow up: Response: No adverse reaction cm10 Medication: 17:54 VIS not applicable for this client. cm10 Outcome: 17:33 Discharge ordered by . ec2 17:54 Discharged to home ambulatory, cm10 17:54 Condition: good 17:54 Discharge instructions given to patient, Instructed on discharge instructions, follow up and referral plans. medication usage, Demonstrated understanding of instructions, follow-up care, medications, Prescriptions given X 2, 17:54 Patient left the ED. cm10 Signatures: Dispatcher [employer] EDAL Abi Girard, ARMANDO RN ld1 Gila Elizondo RN RN db Vesna Campos RN RN cm10 Karlos Fall MD MD 2 Wes , Walt nh2 Corrections: (The following items were deleted from the chart) 15:39 15:37 Pulse 88bpm; Resp 18bpm; Pulse Ox 99%; Temp 97.8F; db db 15:40 15:37 BP 205 / 107; Pulse 88bpm; Resp 18bpm; Pulse Ox 99%; Temp 97.8F; db db 15:41 15:37 BP 181 / 115; Pulse 88bpm; Resp 18bpm; Pulse Ox 99%; Temp 97.8F; db db
[2024-05-12 18:36] VITALS: TEMP 97.8
[2024-05-12 18:39] VITALS: O2SAT 98
[2024-05-12 18:41] VITALS: BP 185/98
== END 2024-05-12 17:54 | disposition home or self-care (01) ==
LOC: ER 15:25
DX: M54.12 Radiculopathy, cervical region (principal); F17.210 Nicotine dependence, cigarettes, uncomplicated
CPT/HCPCS: 36415; 72125; 80048; 85025; 96374; 99284